=== PATIENT | female | born 1995 | race Caucasian/White ===

== ENCOUNTER 2017-10-06 00:21 | Emergency (ER) | payer OTHER, SELFPAY | END 2017-10-06 02:13 | disposition home or self-care (01) | PROVIDERS: Emergency Provider Emergency Medicine; Family Provider Family Medicine; Visit Provider Emergency Medicine | DX: R30.0 Dysuria (principal); Z88.0 Allergy status to penicillin; N89.8 Other specified noninflammatory disorders of vagina | CPT/HCPCS: 81001; 81025; 87086; 87210; 87220; 99283 ==

== ENCOUNTER → 2018-04-24 20:39 | Outpatient (REF) | payer OTHER, SELFPAY | LOC: LAB 20:39 | PROVIDERS: Visit Provider Nurse Practitioner Family | DX: J02.9 Acute pharyngitis, unspecified (principal) ==

== ENCOUNTER 2020-10-13 11:39 | Emergency (ER) | payer BC, SELFPAY ==
[2020-10-13 13:03] VITALS: BP 148/98; PULSE 111; RESP 16; TEMP 36.6; O2SAT 97; BMI 37.2
--- NOTE | 2020-10-13 13:07 | HMH.EDUTC ---
[facility] [place] Disposition Clinical Impression: Exposure to COVID-19 virus Disposition: Home, Self-Care Condition on Discharge: Good Instructions: DI for COVID-19 (Suspected or Confirmed ), Coronavirus Disease 2019, COVID-19: Testing and Tracing, Preventing the Spread of Coronavirus Discharge Instructions Additional Instructions: *Monitor Temp, Over the counter Motrin or Tylenol as directed/as needed Tylenol every 4 hours and Motrin every 6 hours (as long as your family doctor has told you that you can take it) for fever or pain. and straight to ER if unable to lower temp less than 101.0 after medication given *Warm salt water gargles may help to soothe the throat *Throat Lozenges *Warm fluids like tea with honey may help to soothe the throat *Sleep elevated *Humidifier/Vaporizer Follow up IMMEDIATELY for new or worsening symptoms or no Noticeable improvement over the next 48-72 hours. 911 for difficulty breathing or swallowing You were tested for today for COVID19 your test result should be back in the next 24-48 hours, you may call to the [facility] to see if your test results are back in the next 48 hours [phone] [facility] hours are 9am-9pm You was given a handout with instructions for Self Quarantine and Self isolation for while you wait on test results and what to do if they are positive If you are positive the Health Dept will be contacting you also Referrals: Leola Guerrero [Primary Care Provider] - As needed Forms: Work/School Release Time of Disposition: 13:08 Medical Decision Making - Phil Inquiry Pt receiving controlled substance: No Phil was queried for this patient: No Vital Signs: 10/13/20 13:03 Temperature 98 F Temperature Source Oral Pulse Rate [Right] 111 H Respiratory Rate 16 Blood Pressure [Right Arm] 148/98 H Blood Pressure Mean [Right Arm] 114 Blood Pressure Source [Right Arm] Automatic Cuff Blood Pressure Position [Right Arm] Sitting 02 Sat by Pulse Oximetry 97 Oxygen Delivery Method Room Air Orders (Tests/Meds): ORDERS Category Date Time Status Covid-19 Nasal PCR ([facility]) Routine Lab 10/13/20 12:04 Ordered [facility] [place] HPI - General Stated complaint: covid exposure Time Seen by Provider: 10/13/20 13:07 Mode of Arrival: Ambulatory Source of Information: Patient Limitations: No Limitations Description of Symptoms (Recalled from Triage Doc. by RN): pt wants covid test. Denies any symptoms HEENT Symptoms (Recalled from RN notes): No Resp Symptoms (Recalled from RN notes): No Skin Symptoms (Recalled from RN notes): No MS Symptoms (Recalled from RN notes): No Functional Status (Recalled from RN notes): na - History of Present Illness Provider Complaint: Patient state that she has recenty been around someone that just tested positive for COVID State that she has been having headache and body aches but no other symptoms State that she hasnt had a fever that she is aware of - Related Data Home Medications Medication Instructions Recorded Confirmed bupropion HCl 150 mg tablet,12 hr 150 mg PO DAILY 12/09/19 12/09/19 sustained-release escitalopram oxalate 20 mg tablet mg PO 12/09/19 12/09/19 levothyroxine 50 mcg tablet PO 12/09/19 12/09/19 norgestimate 0.25 mg-ethinyl tab PO 12/09/19 12/09/19 estradiol 35 mcg tablet valacyclovir 500 mg tablet PO 12/09/19 12/09/19 Allergies Allergy/AdvReac Type Severity Reaction Status Date / Time Penicillins [PENICILLINS] Allergy Unknown Verified 12/09/19 11:33 sulfamethoxazole AdvReac diarrhea Verified 12/09/19 11:33 [From Bactrim] trimethoprim [From Bactrim] AdvReac diarrhea Verified 12/09/19 11:33 LACTOSE INTOLERANCE Allergy Unknown Uncoded 09/30/17 14:57 MUSHROOM Allergy Unknown NA-NAUSEA/V Uncoded 09/30/17 14:57 OMITING - Worker's Comp Is this a Worker's Comp case?: No [facility] History - Hepatitis A Screen Drug use history?: No High risk sexual behaviors?: No History of sexually transmitted infection?: No Currently
[2020-10-13 13:12] VITALS: BP 148/97; PULSE 98; RESP 16; TEMP 36.6; O2SAT 100
== END 2020-10-13 13:13 | disposition home or self-care (01) ==
PROVIDERS: Emergency Provider Nurse Practitioner; PCP Family Medicine
DX: U07.1 COVID-19 (principal); Z88.0 Allergy status to penicillin; Z88.2 Allergy status to sulfonamides
CPT/HCPCS: 99202; G0463; U0003

== ENCOUNTER 2021-03-23 12:16 | Emergency (ER) | payer BC, SELFPAY ==
[2021-03-23 12:40] VITALS: BP 134/90; PULSE 94; RESP 19; TEMP 36.9; O2SAT 98; BMI 35.9
[2021-03-23 12:44] VITALS: BP 134/90; PULSE 94; RESP 19; TEMP 36.9; O2SAT 98
--- NOTE | 2021-03-23 12:57 | HMH.EDUTC ---
[facility] [place] Disposition Clinical Impression: Gastroenteritis Disposition: Home, Self-Care Condition on Discharge: Good Instructions: DI for Viral Gastroenteritis -- Adult Additional Instructions: Clear liquids, bland diet. Prescriptions: Ondansetron [Ondansetron Odt 8mg Tab] 8 mg PO Q8HP PRN 30 Days #30 tab PRN Reason: Nausea Transmission Status: [facility] Referrals: Leola Guerrero [Primary Care Provider] - Forms: Work/School Release Time of Disposition: 13:02 Medical Decision Making - Phil Inquiry Pt receiving controlled substance: No Vital Signs: 03/23/21 12:40 03/23/21 12:44 Temperature 98.5 F 98.5 F Temperature Source Oral Pulse Rate 94 H Pulse Rate [Left] 94 H Respiratory Rate 19 19 Blood Pressure 134/90 Blood Pressure [Right Arm] 134/90 Blood Pressure Mean [Right Arm] 104 02 Sat by Pulse Oximetry 98 [facility] [place] HPI - General Stated complaint: vomiting, diarrhea Time Seen by Provider: 03/23/21 13:00 Mode of Arrival: Ambulatory Source of Information: Patient Limitations: No Limitations Description of Symptoms (Recalled from Triage Doc. by RN): Pt states that she has had diarrhea, vomiting and a headache for 2 days. Pt reports that the stomach virus has been going around her work. HEENT Symptoms (Recalled from RN notes): No Resp Symptoms (Recalled from RN notes): No Skin Symptoms (Recalled from RN notes): No MS Symptoms (Recalled from RN notes): No Functional Status (Recalled from RN notes): wnl - History of Present Illness Provider Complaint: Vomiting and diarrhea X 2 days. No fever. Onset (ago): day(s) (2) Location: abdomen Relieving factors: none Exacerbating factors: none Associated symptoms: denies other symptoms Treatments prior to arrival: none - Related Data Home Medications Medication Instructions Recorded Confirmed bupropion HCl 150 mg tablet,12 hr 150 mg PO DAILY 12/09/19 12/09/19 sustained-release escitalopram oxalate 20 mg tablet mg PO 12/09/19 12/09/19 levothyroxine 50 mcg tablet PO 12/09/19 12/09/19 norgestimate 0.25 mg-ethinyl tab PO 12/09/19 12/09/19 estradiol 35 mcg tablet valacyclovir 500 mg tablet PO 12/09/19 12/09/19 Previous Rx's Medication Instructions Recorded Ondansetron [Ondansetron Odt 8mg 8 mg PO Q8HP PRN 30 Days #30 tab 03/23/21 Tab] Allergies Allergy/AdvReac Type Severity Reaction Status Date / Time Penicillins [PENICILLINS] Allergy Unknown Verified 03/23/21 12:29 sulfamethoxazole AdvReac diarrhea Verified 03/23/21 12:29 [From Bactrim] trimethoprim [From Bactrim] AdvReac diarrhea Verified 03/23/21 12:29 LACTOSE INTOLERANCE Allergy Unknown Uncoded 09/30/17 14:57 MUSHROOM Allergy Unknown NA-NAUSEA/V Uncoded 09/30/17 14:57 OMITING - Worker's Comp Is this a Worker's Comp case?: No [facility] History - Hepatitis A Screen Drug use history?: No High risk sexual behaviors?: No History of sexually transmitted infection?: No Currently employed?: No Childcare worker?: No Do you have indoor plumbing?: Yes Do you have electricity?: Yes Attestation statement:: This patient has been screened for Hepatitis A risk factors. I have reviewed the patient's past medical history: Yes Laterality Cases: Bilateral: Myringotomy (Ear Tubes) Amputation: No Fractures: No Comment: wisdom teeth removed. - Social History Smoking Status: Never smoker Alcohol Intake: never Alcohol Intake Frequency:: holidays/special occasions only Substance Use Type: denies use Occupational Status: employed Family Hx:: Non-contributory, Diabetes, Coronary Artery Disease ROS Obtained: Yes All systems reviewed & no additional complaints - Gastrointestinal Gastrointestingal: Reports: diarrhea, vomiting Physical Exam - General General appearance: alert, in no apparent distress - Head Head exam: normocephalic - Eye Eye exam: Present: PERRL - ENT ENT exam: Present: normal oropharynx - Respiratory
== END 2021-03-23 13:09 | disposition home or self-care (01) ==
PROVIDERS: Emergency Provider Physician Assistant; PCP Family Medicine
DX: K52.9 Noninfective gastroenteritis and colitis, unspecified (principal)
CPT/HCPCS: 99202; G0463

== ENCOUNTER 2021-05-04 10:31 | Emergency (ER) | payer BC, SELFPAY ==
[2021-05-04 11:07] VITALS: BP 135/92; PULSE 85; RESP 16; TEMP 36.8; O2SAT 100; BMI 36.3
--- NOTE | 2021-05-04 11:41 | HMH.EDUTC ---
[facility] [place] Disposition Clinical Impression: Otitis media Qualifiers: Otitis media type: unspecified Laterality: right Qualified Code(s): H66.91 - Otitis media, unspecified, right ear Disposition: Home, Self-Care Condition on Discharge: Good Instructions: Middle Ear Infection, Azithromycin Additional Instructions: Take medication as prescribed Gargle warm salt water this may help with throat pain Over the counter Motrin and/or Tylenol as directed on package for fever or pain Follow up with your Family Doctor if no improvement or any worsening of symptoms Prescriptions: Azithromycin [Z-Troy 250mg Tab] 250 mg PO DIRECTED #6 tab Transmission Status: Pending to [facility] Referrals: Leola Guerrero [Primary Care Provider] - Medical Decision Making - Phil Inquiry Pt receiving controlled substance: No Phil was queried for this patient: No Vital Signs: 05/04/21 11:07 Temperature 98.3 F Temperature Source Oral Pulse Rate [Right] 85 Respiratory Rate 16 Blood Pressure [Right Arm] 135/92 H Blood Pressure Mean [Right Arm] 106 Blood Pressure Source [Right Arm] Automatic Cuff Blood Pressure Position [Right Arm] Sitting 02 Sat by Pulse Oximetry 100 Oxygen Delivery Method Room Air Medical Decision Narrative: Patient states that she is allergic to PCN and not sure if she has taken Cephalexin or Cefdinir in the past but has taken azithromycin without complications or reactions [facility] [place] HPI - General Stated complaint: rt ear pain, sore throat Time Seen by Provider: 05/04/21 11:42 Mode of Arrival: Ambulatory Source of Information: Patient Limitations: No Limitations Description of Symptoms (Recalled from Triage Doc. by RN): pt c/o earache on the right side with a sore throat. Advises she had been in [place] and been swimming alot [facility] Symptoms (Recalled from RN notes): Yes (earache, sore throat) Resp Symptoms (Recalled from RN notes): No Skin Symptoms (Recalled from RN notes): No MS Symptoms (Recalled from RN notes): No Functional Status (Recalled from RN notes): na - History of Present Illness Provider Complaint: Patient states that she has been having pain in her right ear States that pain in ear shoots down into her throat and has pain in both her throat and ear when she swallows States that she has been swimming and recently on vacation in [place] - Related Data Home Medications Medication Instructions Recorded Confirmed bupropion HCl 150 mg tablet,12 hr 150 mg PO DAILY 12/09/19 12/09/19 sustained-release escitalopram oxalate 20 mg tablet mg PO 12/09/19 12/09/19 levothyroxine 50 mcg tablet PO 12/09/19 12/09/19 norgestimate 0.25 mg-ethinyl tab PO 12/09/19 12/09/19 estradiol 35 mcg tablet valacyclovir 500 mg tablet PO 12/09/19 12/09/19 Previous Rx's Medication Instructions Recorded Ondansetron [Ondansetron Odt 8mg 8 mg PO Q8HP PRN 30 Days #30 tab 03/23/21 Tab] Azithromycin [Z-Troy 250mg Tab] 250 mg PO DIRECTED #6 tab 05/04/21 Allergies Allergy/AdvReac Type Severity Reaction Status Date / Time Penicillins [PENICILLINS] Allergy Unknown Verified 03/23/21 12:29 sulfamethoxazole AdvReac diarrhea Verified 03/23/21 12:29 [From Bactrim] trimethoprim [From Bactrim] AdvReac diarrhea Verified 03/23/21 12:29 LACTOSE INTOLERANCE Allergy Unknown Uncoded 09/30/17 14:57 MUSHROOM Allergy Unknown NA-NAUSEA/V Uncoded 09/30/17 14:57 OMITING - Worker's Comp Is this a Worker's Comp case?: No [facility] History - Hepatitis A Screen Drug use history?: No High risk sexual behaviors?: No History of sexually transmitted infection?: No Currently employed?: No Childcare worker?: No Do you have indoor plumbing?: Yes Do you have electricity?: Yes Attestation statement:: This patient has been screened for Hepatitis A risk factors. I have reviewed the patient's past medical history: Yes Laterality Cases: Bilateral: Myringotomy (Ear Tubes) Amputation: No Fractures: No Co
[2021-05-04 11:57] VITALS: BP 135/92; PULSE 85; RESP 19; TEMP 36.8; O2SAT 100
== END 2021-05-04 11:57 | disposition home or self-care (01) ==
PROVIDERS: Emergency Provider Nurse Practitioner; PCP Family Medicine
DX: H66.91 Otitis media, unspecified, right ear (principal); Z88.0 Allergy status to penicillin; Z88.2 Allergy status to sulfonamides
CPT/HCPCS: 99202; G0463

== ENCOUNTER 2021-07-15 14:24 | Emergency (ER) | payer OTHER, BC, SELFPAY ==
[2021-07-15 16:02] VITALS: BP 0/0; PULSE 0; RESP 0; TEMP -17.7; TEMP 0
== END 2021-07-15 16:03 | disposition left against medical advice (07) ==
LOC: UTC 14:29
PROVIDERS: Emergency Provider Nurse Practitioner; PCP Family Medicine
DX: Z53.21 Procedure and treatment not carried out due to patient leaving prior to being seen by health care provider (principal)

== ENCOUNTER → 2021-08-06 12:35 | Outpatient (CLI) | payer OTHER, BC, SELFPAY | PROVIDERS: Visit Provider Obstetrics & Gynecology | DX: N97.9 Female infertility, unspecified (principal) | CPT/HCPCS: 36415; 84144; 84443 ==

== ENCOUNTER → 2021-08-28 08:11 | Outpatient (CLI) | payer OTHER, BC, SELFPAY ==
[2021-08-28 09:03] LABS: Basophils # 0.1 K/mm3 (0-0.2); Basophils % 1.4 % (0.1-2.0); Eosinophils # 0.2 K/mm3 (0.0-0.4); Eosinophils % 2.9 % (0.1-12.0); Hematocrit 41.6 % (37.0-47.0); Hemoglobin 14.6 g/dL (12.2-16.2); Lymphocytes # 3.9 K/mm3 (0.7-4.5); Lymphocytes % 50.9 % (10-50); Mean Corpuscular Hemoglobin 31.1 pg (27.0-31.2); Mean Corpuscular Volume 88.7 fl (81-99); Mean Platelet Volume 7.7 fl (7.4-10.4); Monocytes # 0.3 K/mm3 (0.1-1.0); Monocytes % 4.1 % (1.7-9.3); Neutrophils # 3.1 K/mm3 (1.8-7.8); Neutrophils % 40.6 % (37.0-80.0); Platelet Count 409 K/mm3 (142-424); Red Blood Count 4.69 M/mm3 (4.20-5.40); Red Cell Distribution Width 13.3 % (11.5-17.5); White Blood Count 7.7 K/mm3 (4.8-10.8)
[2021-08-28 09:11] LABS: MANUAL DIFFERENTIAL MANUAL DIFFERENTIAL (MANUAL DIFF)
[2021-08-28 09:25] LABS: Alanine Aminotransferase 54 U/L (12-78); Albumin Level 4.5 g/dl (3.5-5.0); Albumin/Globulin Ratio 1.7 (1.1-1.8); Alkaline Phosphatase 67 U/L (38-126); Anion Gap 10.9 mEq/L (5-15); Aspartate Amino Transferase 35 U/L (14-36); Bilirubin,Total 0.5 mg/dl (0.2-1.3); Blood Urea Nitrogen 8 mg/dl (7-17); Calcium 9.5 mg/dl (8.4-10.2); Carbon Dioxide 26 mmol/L (22.0-30.0); Chloride 107 mmol/L (98-107); Estimated Glomerular Filt Rate 121 ml/min (>60); GFR (African American) 146 ML/MIN (>60); Globulin 2.7 g/dL (1.3-3.2); Glucose 101 mg/dl (74-100); Potassium 3.9 mmoL/L (3.5-5.1); Sodium 140 mmol/L (136-145); Total Protein,Serum 7.2 g/dl (6.3-8.2)
[2021-08-28 09:30] LABS: HCG Qualitative, Serum Negative (Negative)
[2021-08-28 10:49] LABS: Amphetamine/Metha Screen,Urine Negative ng/ml (<1000)
[2021-08-28 10:50] LABS: Cannabinoid Screen,Urine Negative ng/ml (<50)
[2021-08-28 10:51] LABS: Barbiturates Screen,Urine Negative ng/ml (<200); Benzodiazepines Screen,Urine Negative ng/ml (<200)
[2021-08-28 10:52] LABS: Cocaine Screen,Urine Negative ng/ml (<300); Methadone Screen,Urine Negative ng/ml (<300)
[2021-08-28 10:53] LABS: Opiate Screen,Urine Negative ng/ml (<300)
[2021-08-28 10:54] LABS: Phencyclidine Screen,Urine Negative ng/ml (<25)
[2021-08-28 12:55] LABS: Eosinophils % 2 % (0-3); Lymphocytes % 52 % (10-50); Monocytes % 5 % (2-9); Neutrophils % 39 % (42-76); Platelet Estimate Normal; Total Cells Counted 100
== END ==
PROVIDERS: Visit Provider Obstetrics & Gynecology
DX: Z01.812 Encounter for preprocedural laboratory examination (principal); Z11.52 Encounter for screening for COVID-19; N94.6 Dysmenorrhea, unspecified
CPT/HCPCS: 36415; 80053; 80305; 84703; 85007; 85025; C9803; U0003; U0005

== ENCOUNTER 2021-08-30 07:08 | Day surgery (SDC) | payer OTHER, BC, SELFPAY ==
[2021-08-27 10:50] VITALS: BMI 37.2
[2021-08-30] VITALS (11 sets, daily range): BP systolic 134–168; BP diastolic 78–97; PULSE 95–113; RESP 16–20; TEMP 36.2–36.8; O2SAT 92–98
--- NOTE | 2021-08-30 07:51 | P.PN_ITS ---
[facility] Anesthesia Checklist - Patient Identification Patient Identification: Arm Band - Structural Data Admitted From: Home Planned Operative Procedure/s: Dx lap. Consent for Planned Operative Procedure(s) Verified: Yes - NPO Status Verified Time NPO: 00:00 - Additional verifications Anesthesia Reactions: Yes (n/v stated extreme ) Hx Blood Transfusions: No Blood Transfusion Reaction: No - Airway Assessment C-Spine Mobility Assessed: Yes TMJ Mobility Assessed: Yes Dentition: Good Dentition (Braces) - Neurological Assessment Level of Consciousness: Awake Hx Seizures: No Numbness or tingling in extremities: No - Anesthesia Plan Anesthesia Risk discussed: Yes Anesthesia Plan: Verified ASA Class: II Anesthesia Type: General [facility] History I have reviewed the patient's past medical history: Yes Medical History: Denies:: Cancer, Diabetes Mellitus Type 1, Diabetes Mellitus Type 2, Internal Pacemaker, MRSA, Seizures *Have you ever received a pneumonia vaccine?: No *Have you received a flu vaccine this season?: Yes Other Medical History: Denies: Blood Transfusion Reaction Anesthesia experience/problems:: PONV Laterality Cases: Bilateral: Myringotomy (Ear Tubes) Other Surgeries: Yes: Cholecystectomy. No: Pacemaker Amputation: No Fractures: No - *Social History Last grade of school completed: Advanced degree Smoking Status: Never smoker Alcohol Intake: former Alcohol Intake Frequency:: holidays/special occasions only Substance Use Type: denies use *Occupational Status:: unemployed Housing: house Household Members: spouse, family *Travel in the last 8 weeks: None Family Hx:: Stroke
--- NOTE | 2021-08-30 10:32 | HMH.ANESI ---
[facility] Anesthesia Record Part I Intake, IV Amount: 1,000 Estimated blood loss (mL): 10 Urine output (mL): 0 Blood Pressure: 138/97 SaO2: 92 Pulse Rate: 101 Respiratory Rate: 16 Temperature: 97.2 F Patient is:: Drowsy Stable to PACU at:: 10:27
--- NOTE | 2021-08-30 11:07 | HMH.OPNOTE ---
Date of procedure: 08/30/21 Pre-op Diagnosis:: 1. Infertility 2. Severe dysmenorrhea Post-op Diagnosis:: 1. Infertility 2. Severe dysmenorrhea 3. Endometriosis Procedure performed:: Diagnostic laparoscopy chromotubation of fallopian tubes Surgeon:: Nathalie Celaya MD Wood Fence Installer(s):: none [employer]PERVIS[employer] DEPARTMENT:: Other Anesthesia: GETA Estimated blood loss (mL): 5 Operative findings:: grossly normal uterus and left ovary grossly normal appearing fallopian tubes powder burn endometriosis lesions right ovary and over bladder no pelvic adhesions patent bilateral fallopian tubes Operative note:: The patient was taken to the operating room and general anesthesia was administered. She was prepped/draped in lithotomy position. A uterine manipulator was placed without difficulty. Gloves were changed and attention was turned to the abdomen. A 5mm skin incision was made in the umbilical fold and the verees needle was inserted through the peritoneum and into the abdominal cavity in standard fashion. The abdomen was insufflated with CO2 gas. A 5mm non-bladed trocar was inserted directly into the abdominal cavity and appropriate placement was confirmed with the laparoscope. No intra-abdominal injuries occurred during entry into the abdominal cavity, as confirmed visually with the laparoscope. The patient was placed in trendelenburg and a 5mm skin incision was made 2cm above the pubic symphysis. A 5mm non-bladed trocar was inserted under direct visualization, without complication. The uterus was elevated out of the pelvis in order to better visualize the anatomy. A survey of the pelvis and abdomen revealed the findings noted above. A few powder burn lesions consistent with endometriosis were identified on the right ovary and overlying the blader. Fulgaration of these lesions was deferred because of their location. The rest of the pelvic anatomy appeared normal, and no adhesions were observed. A dilute solution of methylene blue was injected through the uterine manipulator. The dye was observed quickly from the left fallopian tube, but did take considerably longer to be expelled from the right fallopian tube. The exterior of the tubes both appeared normal. The abdomen was then evacuated of gas and all trocars removed. The skin incisions were closed with 4-0 monocryl. The uterine manipulator was removed. All sponge/lap/needle/instrument counts correct. Total EBL: 5 cc. The patient was taken out of lithotomy position, extubated and taken to the PACU in stable condition. Condition: stable Disposition: PACU Specimens:: none Complications:: none
[2021-08-31 08:07] VITALS: BP 145/78; PULSE 100; TEMP 36.2
--- NOTE | 2021-08-31 08:07 | HMH.ANESII ---
[facility] Anesthesia Record Part II Discharge Time: 10:57 Destination: [facility] PACU nurse assessment reviewed?: Yes Patient Condition:: Good Anesthesia Complications:: None Swallowing reflex intact?: Yes Cyanosis?: No Blood Pressure: 145/78 Pulse Rate: 100 Temperature: 97.2 F Mental Status: Alert & Oriented Pain level:: 2 Nausea and/or vomitting:: None Intake, IV Amount: 1,500
== END 2021-08-30 12:01 | disposition home or self-care (01) ==
LOC: OR 07:10
PROVIDERS: PCP Family Medicine; Visit Provider Obstetrics & Gynecology
PROC: (CPT 49320; principal; 2021-08-30 08:45)
DX: Z30.2 Encounter for sterilization (principal); N94.6 Dysmenorrhea, unspecified; N80.1 Endometriosis of ovary; Z90.49 Acquired absence of other specified parts of digestive tract; Z82.3 Family history of stroke; Z88.0 Allergy status to penicillin; Z88.1 Allergy status to other antibiotic agents; Z79.899 Other long term (current) drug therapy
CPT/HCPCS: 49320; 58350; 96374; J2405; J2710

== ENCOUNTER 2021-08-30 18:27 | Emergency (ER) | payer OTHER, BC, SELFPAY ==
[2021-08-30 18:29] VITALS: BP 128/92; PULSE 118; RESP 20; TEMP 36.9; O2SAT 97; BMI 37.2
--- NOTE | 2021-08-30 18:42 | HMH.EDGENADL ---
ED Disposition Condition on Discharge: Fair Time of Disposition: 20:06 - Critical Care Critical Care Time: No <Graciela Avila - Last Filed: 08/30/21 20:04> <Mark Chao - Last Filed: 08/30/21 22:52> Clinical Impression: Acute abdominal pain, Dysuria Disposition: Home, Self-Care Instructions: DI for Acute Abdominal Pain Additional Instructions: call dr celaya office in am for follow up Referrals: Leola Guerrero [Primary Care Provider] - Nathalie Celaya MD [Staff Physician] - Attestation: On 08/30/21, the high probability of a clinically significant, sudden or life threatening deterioration of the following system(s) required my full and direct attention, intervention and personal management. The time I documented below is in addition to time spent performing reported procedures but includes the following listed in this critical care notation. Medical Decision Making - Medical Records Medical records reviewed: Yes: I reviewed the patient's medical records. - Phil Inquiry Pt receiving controlled substance: No - Lab Data Result diagrams: 08/30/21 19:11 08/30/21 19:11 <Graciela Avila - Last Filed: 08/30/21 20:04> - Lab Data Lab results reviewed: Yes: I reviewed the patient's lab results. Result diagrams: 08/30/21 19:11 08/30/21 19:11 - CT Data CT Scan: Abdomen, Pelvis Time Received: 22:[address] Reviewed: Yes: I have viewed the radiologist's interpretation Preliminary Findings: Abnormal (see report ) - Physician Consults Physician Consulted: more Reason -: Pt condition <Mark Chao - Last Filed: 08/30/21 22:52> Vital Signs: 08/30/21 18:29 Temperature 98.5 F Temperature Source Oral Pulse Rate [Right Radial] 118 H Respiratory Rate 20 Blood Pressure [Right Arm] 128/92 H Blood Pressure Mean [Right Arm] 104 Blood Pressure Source [Right Arm] Automatic Cuff Blood Pressure Position [Right Arm] Sitting 02 Sat by Pulse Oximetry 97 Oxygen Delivery Method Room Air - Lab Data Lab Results 08/30/21 19:11: WBC 9.6, RBC 4.68, Hgb 14.5, Hct 41.8, MCV 89.3, MCH 31.0, MCHC 34.7, RDW 13.3, Plt Count 429 H, MPV 7.6, Neut % (Auto) 87.0 H, Lymph % (Auto) 10.8, [place] % (Auto) 1.1 L, Eos % (Auto) 0.9, Baso % (Auto) 0.2, Neut # (Auto) 8.4 H, Lymph # (Auto) 1.0, [place] # (Auto) 0.1, Eos # (Auto) 0.1, Baso # (Auto) 0.0, Total Counted 100, Neutrophils % (Manual) 85 H, Lymphocytes % (Manual) 14, Monocytes % (Manual) 1 L, Platelet Estimate Normal, RBC Morphology Normal 08/30/21 19:11: Sodium 139, Potassium 4.2, Chloride 103, Carbon Dioxide 24, Anion Gap 16.2 H, BUN 13 D, Creatinine 0.90 D, Estimated Creat Clear 142, Estimated GFR 76, Est GFR ( Amer) 92 D, Glucose 130 H, Calcium 9.7, Total Bilirubin 0.3, AST 38 H, ALT 54, Alkaline Phosphatase 55, Total Protein 8.0, Albumin 4.8, Globulin 3.2, Albumin/Globulin Ratio 1.5 08/30/21 20:05: Urine HCG, Qual Negative 08/30/21 20:08: Urine Color Yellow, Urine Appearance Clear, Urine pH 5.5, Ur Specific [place] 1.020, Urine Protein Trace, Urine Glucose (UA) Negative, Urine Ketones Negative, Urine Blood 3+, Urine Nitrate Negative, Urine Bilirubin Negative, Urine Urobilinogen 0.2, Ur Leukocyte Esterase Trace, Urine RBC 50-100, Urine WBC 5-10, Ur Squamous Epith Cells 3-5, Urine Bacteria Trace Orders (Tests/Meds): ED MEDICATIONS Generic Name Dose Route Start Last Admin Trade Name Freq PRN Reason Stop Dose Admin Sodium Chloride 1,000 mls @ 999 mls/hr 08/30/21 20:00 08/30/21 20:10 Sod Chlor 0.9% 1000ml Bag IV 08/30/21 21:00 999 mls/hr .Q1H1M BRET Administration Discontinued Medications Generic Name Dose Route Start Last Admin Trade Name Freq PRN Reason Stop Dose Admin Iopamidol 70 ml 08/30/21 21:34 08/30/21 21:34 Iopamidol-370 (76%);100ml Bottle IV 08/30/21 21:35 70 ml ONCE ONE Administration Lidocaine HCl 10 ml 08/30/21 18:41 08/30/21 18:57 Lidocaine 2% Urojet 10ml TOPICAL 08/30/21 18:42 10 ml ONCE ONE Administration
[2021-08-30 19:23] LABS: Basophils % 0.2 % (0.1-2.0); Eosinophils # 0.1 K/mm3 (0.0-0.4); Eosinophils % 0.9 % (0.1-12.0); Hematocrit 41.8 % (37.0-47.0); Hemoglobin 14.5 g/dL (12.2-16.2); Lymphocytes % 10.8 % (10-50); Mean Corpuscular HGB Conc 34.7 g/dL (31.8-35.4); Mean Corpuscular Volume 89.3 fl (81-99); Mean Platelet Volume 7.6 fl (7.4-10.4); Monocytes # 0.1 K/mm3 (0.1-1.0); Monocytes % 1.1 % (1.7-9.3); Neutrophils # 8.4 K/mm3 (1.8-7.8); Platelet Count 429 K/mm3 (142-424); Red Blood Count 4.68 M/mm3 (4.20-5.40); Red Cell Distribution Width 13.3 % (11.5-17.5); White Blood Count 9.6 K/mm3 (4.8-10.8)
[2021-08-30 19:27] LABS: MANUAL DIFFERENTIAL MANUAL DIFFERENTIAL (MANUAL DIFF)
[2021-08-30 19:40] LABS: Chloride 103 mmol/L (98-107)
[2021-08-30 19:41] LABS: Potassium 4.2 mmoL/L (3.5-5.1); Sodium 139 mmol/L (136-145)
[2021-08-30 19:43] LABS: Alanine Aminotransferase 54 U/L (12-78); Aspartate Amino Transferase 38 U/L (14-36); Blood Urea Nitrogen 13 mg/dl (7-17); Creatinine Clearance Estimated 142 mL/min (50-200); Estimated Glomerular Filt Rate 76 ml/min (>60); GFR (African American) 92 ML/MIN (>60); Lymphocytes % 14 % (10-50); Monocytes % 1 % (2-9); Neutrophils % 85 % (42-76); Platelet Estimate Normal; RBC Morphology Normal; Total Cells Counted 100
[2021-08-30 19:44] LABS: Albumin Level 4.8 g/dl (3.5-5.0); Albumin/Globulin Ratio 1.5 (1.1-1.8); Alkaline Phosphatase 55 U/L (38-126); Anion Gap 16.2 mEq/L (5-15); Bilirubin,Total 0.3 mg/dl (0.2-1.3); Calcium 9.7 mg/dl (8.4-10.2); Carbon Dioxide 24 mmol/L (22.0-30.0); Globulin 3.2 g/dL (1.3-3.2); Glucose 130 mg/dl (74-100)
[2021-08-30 20:13] LABS: Microscopic, Urine URINE MICROSCOPIC (MICROSCOPIC)
[2021-08-30 20:16] LABS: Appearance,Urine CLEAR (Clear); Bilirubin,Urine Negative (Negative); Blood, Urine 3+ (Negative); Color,Urine YELLOW (Yellow); Glucose,Urine (UA) Negative (Negative); Ketones,Urine Negative (Negative); Leukocyte Esterase,Urine TRACE (Negative); Nitrate,Urine Negative (Negative); PH,Urine 5.5 (5.0-8.5); Protein,Urine TRACE (Negative); Urobilinogen,Urine 0.2 EU/dl (0.2)
[2021-08-30 20:21] LABS: Bacteria,Urine Trace /lpf; RBC,Urine 50-100 #/hpf (0-3)
--- NOTE | 2021-08-30 21:00 | CT_ITS ---
PROCEDURE INFORMATION: Exam: CT Abdomen And Pelvis With Contrast Exam date and time: 08/30/2021 9:00 PM Age: 26 years old Clinical indication: Abdominal pain; Prior surgery; Surgery date: Post-operative (0-2 days); Additional info: Dysuria, supra pubic pain, chavez d/c today TECHNIQUE: Imaging protocol: Computed tomography of the abdomen and pelvis with contrast. Radiation optimization: All CT scans at this facility use at least one of these dose optimization techniques: automated exposure control; mA and/or kV adjustment per patient size (includes targeted exams where dose is matched to clinical indication); or iterative reconstruction. Contrast material: ISOVUE; Contrast volume: 70 ml; Contrast route: IV; COMPARISON: No relevant prior studies available. FINDINGS: Lungs: No mass/infiltrate at either lung base. No pleural effusion. Minimal linear scarring left lung base. There are small calcified granulomas noted within the lower lobes. Liver: The liver is normal in size and attenuation. No intrahepatic biliary dilitation. Gallbladder and bile ducts: The gallbladder is surgically absent. No evidence of extrahepatic biliary dilatation. Pancreas: Normal. No ductal dilation. Spleen: Normal. No splenomegaly. Granulomatous calcifications identified. Adrenal glands: Normal. No mass. Kidneys and ureters: Normal. No hydronephrosis. Stomach and bowel: Unremarkable. No obstruction. No mucosal thickening. Small bowel mesentery is normal. Appendix: Unremarkable. Intraperitoneal space: There is diffuse edema of portions of the mid and lower small bowel mesentery as well as the mid and inferior aspect of the greater omentum. Edema extends into the pericolic gutters along their inferior aspects. Attenuation of this edema is less than acute blood. There is a small amount of free air present within the substance of the right rectus muscle. There are areas of free air noted within the inferior aspect of the left pericolic gutter and adjacent to the left adnexa. There is also a small amount of free air adjacent to the medial aspect of the right external oblique muscle at the level of the umbilicus. There is no evidence of free fluid within the cul-de-sac. Above the level of the umbilicus there is no evidence of infiltration of either mesentery. Vasculature: Unremarkable. No abdominal aortic aneurysm. Lymph nodes: Unremarkable. No enlarged lymph nodes. Urinary bladder: Unremarkable as visualized. Reproductive: Unremarkable as visualized. Bones/joints: Unremarkable. No acute fracture. Soft tissues: There is edema present within subcutaneous fat of the lower anterior abdominal wall. There is a small amount of air noted within subcutaneous soft tissues adjacent to or contiguous with what appears to represent an incision line within subcutaneous fat. IMPRESSION: 1. There is edema present within the lower greater omentum, the lower mesentery, and within both pericolic gutters. This likely represents postsurgical change although its etiology is not clear based upon this examination and provided history. 2. There is some residual free air identified, as described. 3. The bladder appears intact.
[2021-08-30 21:19] LABS: Urine Pregnancy, HCG Qual. Negative (Negative)
--- NOTE | 2021-08-30 22:28 | PC.NURSE ---
kayla on phone with dr aguero @ this time
[2021-08-30 23:49] VITALS: BP 110/78; PULSE 90; RESP 17; TEMP 36.7; O2SAT 96
== END 2021-08-30 23:56 | disposition home or self-care (01) ==
PROVIDERS: Emergency Medicine; Emergency Provider Emergency Medicine; PCP Family Medicine
DX: N94.6 Dysmenorrhea, unspecified (principal)
CPT/HCPCS: 74177; 80053; 81001; 81025; 85007; 85025; 87086; 96365; 96375; 96376; 99283; J2405; Q9967

== ENCOUNTER → 2021-10-16 12:32 | Outpatient (CLI) | payer OTHER, BC, SELFPAY ==
[2021-10-17 09:13] LABS: Progesterone 10.3 ng/mL (.)
== END ==
PROVIDERS: Visit Provider Obstetrics & Gynecology
DX: N97.9 Female infertility, unspecified (principal)
CPT/HCPCS: 36415; 84144

== ENCOUNTER → 2021-12-31 12:57 | Outpatient (CLI) | payer OTHER, BC, SELFPAY ==
[2021-12-31 15:07] LABS: HCG,Quantitative 251 mIU/ml (0-5.42)
== END ==
PROVIDERS: PCP Family Medicine; Visit Provider Obstetrics & Gynecology
DX: Z32.01 Encounter for pregnancy test, result positive (principal)
CPT/HCPCS: 36415; 84702

== ENCOUNTER → 2022-01-02 12:36 | Outpatient (CLI) | payer OTHER, BC, SELFPAY ==
[2022-01-02 13:55] LABS: HCG,Quantitative 525 mIU/ml (0-5.42)
== END ==
PROVIDERS: Visit Provider Obstetrics & Gynecology
DX: Z34.90 Encounter for supervision of normal pregnancy, unspecified, unspecified trimester (principal)
CPT/HCPCS: 36415; 84702

== ENCOUNTER → 2022-01-08 12:58 | Outpatient (CLI) | payer OTHER, BC, SELFPAY ==
[2022-01-08 14:25] LABS: HCG,Quantitative 3407 mIU/ml (0-5.42)
== END ==
PROVIDERS: PCP Family Medicine; Visit Provider Obstetrics & Gynecology
DX: Z34.90 Encounter for supervision of normal pregnancy, unspecified, unspecified trimester (principal)
CPT/HCPCS: 36415; 84702

== ENCOUNTER 2022-01-12 16:18 | Emergency (ER) | payer OTHER, BC, SELFPAY ==
[2022-01-12 16:19] VITALS: BP 160/96; PULSE 140; RESP 16; TEMP 36.6; O2SAT 98; BMI 36.3
--- NOTE | 2022-01-12 16:35 | US_ITS ---
PROCEDURE INFORMATION: Exam: US , Transvaginal Exam date and time: 01/12/2022 5:20 PM Age: 26 years old Clinical indication: Lmp or gestational age (in weeks): 11/26/2021; Other: Vag bleeding; ; Additional info: Vaginal bleeding, 6 wks TECHNIQUE: Imaging protocol: Real-time transvaginal obstetrical ultrasound of the maternal pelvis with image documentation. Transvaginal imaging was used for better evaluation of the fetus, adnexa, and/or cervix. COMPARISON: CT ABDOMEN PELVIS W CON 08/30/2021 9:23 PM FINDINGS: Gestation: Single living Intrauterine gestation 5 weeks 6 days +/-1 week by CRL. heart rate: FHR 93 BPM IMPRESSION: Single living intrauterine gestation 5 weeks 6 days +/-1 week with positive cardiac activity.
[2022-01-12 17:07] LABS: Microscopic, Urine URINE MICROSCOPIC (MICROSCOPIC)
[2022-01-12 17:11] VITALS: BP 115/69; PULSE 102; RESP 18; O2SAT 98
[2022-01-12 17:13] LABS: Appearance,Urine CLEAR (Clear); Bilirubin,Urine Negative (Negative); Blood, Urine 1+ (Negative); Color,Urine DK YELLOW (Yellow); Glucose,Urine (UA) Negative (Negative); Ketones,Urine Negative (Negative); Leukocyte Esterase,Urine Negative (Negative); Nitrate,Urine Negative (Negative); Protein,Urine Negative (Negative); Specific Gravity, Urine >= 1.030 (1.005-1.030); Urobilinogen,Urine 0.2 EU/dl (0.2)
[2022-01-12 17:14] LABS: Chloride 107 mmol/L (98-107); Sodium 137 mmol/L (136-145)
[2022-01-12 17:15] LABS: Potassium 4.4 mmoL/L (3.5-5.1)
[2022-01-12 17:17] LABS: Alanine Aminotransferase 45 U/L (12-78); Albumin Level 4.4 g/dl (3.5-5.0); Albumin/Globulin Ratio 1.3 (1.1-1.8); Alkaline Phosphatase 58 U/L (38-126); Anion Gap 16.4 mEq/L (5-15); Aspartate Amino Transferase 58 U/L (14-36); Bilirubin,Total 0.8 mg/dl (0.2-1.3); Blood Urea Nitrogen 9 mg/dl (7-17); Carbon Dioxide 18 mmol/L (22.0-30.0); Creatinine Clearance Estimated 250 mL/min (50-200); Estimated Glomerular Filt Rate 149 ml/min (>60); GFR (African American) 180 ML/MIN (>60); Globulin 3.4 g/dL (1.3-3.2); Total Protein,Serum 7.8 g/dl (6.3-8.2)
[2022-01-12 17:18] LABS: Glucose 108 mg/dl (74-100)
[2022-01-12 17:21] LABS: HCG Qualitative, Serum Positive (Negative)
[2022-01-12 17:31] LABS: Basophils # 0.2 K/mm3 (0-0.2); Basophils % 1.6 % (0.1-2.0); Eosinophils # 0.2 K/mm3 (0.0-0.4); Eosinophils % 1.6 % (0.1-12.0); Hematocrit 44.3 % (37.0-47.0); Hemoglobin 14.7 g/dL (12.2-16.2); Lymphocytes % 30.3 % (10-50); Mean Corpuscular HGB Conc 33.2 g/dL (31.8-35.4); Mean Corpuscular Volume 93.3 fl (81-99); Mean Platelet Volume 7.9 fl (7.4-10.4); Monocytes # 0.5 K/mm3 (0.1-1.0); Monocytes % 5.1 % (1.7-9.3); Neutrophils % 61.4 % (37.0-80.0); Platelet Count 374 K/mm3 (142-424); Red Blood Count 4.75 M/mm3 (4.20-5.40); Red Cell Distribution Width 13.6 % (11.5-17.5); White Blood Count 9.7 K/mm3 (4.8-10.8)
[2022-01-12 17:33] LABS: Bacteria,Urine 2+ /lpf
[2022-01-12 17:34] LABS: HCG,Quantitative 9046 mIU/ml (0-5.42)
[2022-01-12 18:04] VITALS: BP 142/89; PULSE 98; RESP 16; TEMP 36.6; O2SAT 98
--- NOTE | 2022-01-12 18:05 | HMH.EDABDPAI ---
ED Disposition Clinical Impression: Vaginal bleeding affecting early Disposition: Home, Self-Care Condition on Discharge: Fair Additional Instructions: Please see your OB for a repeat beta-hCG and a repeat transvaginal ultrasound. Return to the emergency department if bleeding significantly worsens, you are going through 5-6 pads in an hour, start to get lightheaded, have chest pain, shortness of breath. Referrals: Leola Guerrero [Primary Care Provider] - - Critical Care Critical Care Time: No Attestation: On 01/12/22, the high probability of a clinically significant, sudden or life threatening deterioration of the following system(s) required my full and direct attention, intervention and personal management. The time I documented below is in addition to time spent performing reported procedures but includes the following listed in this critical care notation. Medical Decision Making - Medical Records Medical records reviewed: Yes: I reviewed the patient's medical records. - Phil Inquiry Pt receiving controlled substance: No Phil was queried for this patient: No Vital Signs: 01/12/22 16:19 01/12/22 17:11 Temperature 98 F Temperature Source Oral Pulse Rate 102 H Pulse Rate [Radial] 140 H Respiratory Rate 16 18 Blood Pressure 115/69 Blood Pressure [Right Radial Artery] 160/96 H Blood Pressure Mean 84 Blood Pressure Mean [Right Radial Artery] 117 Blood Pressure Position [Right Radial Artery] Sitting 02 Sat by Pulse Oximetry 98 98 Oxygen Delivery Method Room Air - Lab Data Lab results reviewed: Yes: I reviewed the patient's lab results. Lab Results 01/12/22 16:25: Urine Color Dk yellow, Urine Appearance Clear, Urine pH 5.0, Ur Specific [place] >= 1.030, Urine Protein Negative, Urine Glucose (UA) Negative, Urine Ketones Negative, Urine Blood 1+, Urine Nitrate Negative, Urine Bilirubin Negative, Urine Urobilinogen 0.2, Ur Leukocyte Esterase Negative, Urine RBC 3-5, Urine WBC 3-5, Ur Squamous Epith Cells 3-5, Urine Bacteria 2+ 01/12/22 16:50: WBC 9.7, RBC 4.75, Hgb 14.7, Hct 44.3, MCV 93.3, MCH 31.0, MCHC 33.2, RDW 13.6, Plt Count 374, MPV 7.9, Neut % (Auto) 61.4, Lymph % (Auto) 30.3, [place] % (Auto) 5.1, Eos % (Auto) 1.6, Baso % (Auto) 1.6, Neut # (Auto) 6.0, Lymph # (Auto) 3.0, [place] # (Auto) 0.5, Eos # (Auto) 0.2, Baso # (Auto) 0.2 01/12/22 16:50: Sodium 137, Potassium 4.4, Chloride 107, Carbon Dioxide 18 L, Anion Gap 16.4 H, BUN 9, Creatinine 0.50 L, Estimated Creat Clear 250, Estimated GFR 149, Est GFR ( Amer) 180, Glucose 108 H, Calcium 9.0, Total Bilirubin 0.8, AST 58 H, ALT 45, Alkaline Phosphatase 58, Total Protein 7.8, Albumin 4.4, Globulin 3.4 H, Albumin/Globulin Ratio 1.3 01/12/22 16:50: Blood Type O Positive 01/12/22 16:50: Serum HCG, Qual Positive 01/12/22 16:50: HCG, Quant [id number] H Result diagrams: 01/12/22 16:50 01/12/22 16:50 Orders (Tests/Meds): ED MEDICATIONS Discontinued Medications Generic Name Dose Route Start Last Admin Trade Name Freq PRN Reason Stop Dose Admin Ondansetron HCl 4 mg 01/12/22 16:52 01/12/22 17:10 Ondansetron 4mg/2ml Vial IV 01/12/22 16:53 Not Given ONCE ONE Ondansetron HCl 4 mg 01/12/22 17:10 01/12/22 17:12 Ondansetron 4mg Odt SL 01/12/22 17:11 4 mg ONCE ONE Administration ORDERS Category Date Time Status Urine Culture Stat Micro 01/12/22 16:25 Received US OB transvaginal Stat Ultrasound 01/12/22 16:35 Taken Medical Decision Narrative: Patient is a 26-year-old female with past medical history of endometriosis presenting to the ED for vaginal bleeding and abdominal pain. Patient is awake, alert, not in acute distress. Patient is a medically stable, afebrile. Patient's physical exam is remarkable for tenderness to palpation of the suprapubic region. Differential includes but is not limited to subchorionic hemorrhage, incomplete , complete . Given this a CBC, CMP, ABO, quanti
== END 2022-01-12 18:05 | disposition home or self-care (01) ==
PROVIDERS: Emergency Provider Emergency Medicine; PCP Family Medicine
DX: O20.8 Other hemorrhage in early pregnancy (principal); O26.891 Other specified pregnancy related conditions, first trimester; Z3A.01 Less than 8 weeks gestation of pregnancy; N80.9 Endometriosis, unspecified; Z88.0 Allergy status to penicillin; Z88.2 Allergy status to sulfonamides; Z88.8 Allergy status to other drugs, medicaments and biological substances; Z91.011 Allergy to milk products; Z91.018 Allergy to other foods; Z82.49 Family history of ischemic heart disease and other diseases of the circulatory system
CPT/HCPCS: 76817; 80053; 81001; 84702; 84703; 85025; 86900; 86901; 87086; 99284

== ENCOUNTER → 2022-01-15 10:08 | Outpatient (CLI) | payer OTHER, BC, SELFPAY ==
--- NOTE | 2022-01-15 10:12 | US_ITS ---
FINAL REPORT CLINICAL HISTORY: Dates FINDINGS: Transvaginal sonographic images of the pelvis were obtained. There is a single living intrauterine . Average ultrasound age of 6 weeks 2 day gestation. There is a bicornuate uterus. The right ovary measures 4.3 x 3.7 x 3.1 cm. The left ovary measures 4.0 x 3.6 x 2.7 cm. There are 2 cysts in the left ovary, largest measures 1.9 cm. There is a small cyst in the right ovary measuring 1.5 cm. [place]-rump length measures 0.52 cm consistent with 6 week 2 day gestation. Heart rate is detected at 119 bpm. Yolk sac measures 0.55 cm. IMPRESSION: Single living IUP with an ultrasound age of 6 week 2 days. Reviewed, Interpreted and Dictated by Danish Wolfe III, MD Transcribed by Juju Christina Authenticated by Danish Wolfe III, MD on 01/15/2022 12:47:50 PM [facility]
== END ==
PROVIDERS: PCP Family Medicine; Visit Provider Obstetrics & Gynecology
DX: Z34.90 Encounter for supervision of normal pregnancy, unspecified, unspecified trimester (principal)
CPT/HCPCS: 76801

== ENCOUNTER → 2022-02-07 10:09 | Outpatient (CLI) | payer OTHER, BC, SELFPAY ==
[2022-02-07 10:53] LABS: Basophils # 0.1 K/mm3 (0-0.2); Basophils % 0.9 % (0.1-2.0); Eosinophils # 0.2 K/mm3 (0.0-0.4); Eosinophils % 2.4 % (0.1-12.0); Hematocrit 40.1 % (37.0-47.0); Hemoglobin 13.3 g/dL (12.2-16.2); Lymphocytes # 2.5 K/mm3 (0.7-4.5); Lymphocytes % 33.4 % (10-50); Mean Corpuscular HGB Conc 33.2 g/dL (31.8-35.4); Mean Corpuscular Hemoglobin 30.2 pg (27.0-31.2); Mean Corpuscular Volume 90.8 fl (81-99); Mean Platelet Volume 6.7 fl (7.4-10.4); Monocytes # 0.3 K/mm3 (0.1-1.0); Neutrophils # 4.4 K/mm3 (1.8-7.8); Neutrophils % 59.3 % (37.0-80.0); Platelet Count 352 K/mm3 (142-424); Red Blood Count 4.42 M/mm3 (4.20-5.40); Red Cell Distribution Width 13.2 % (11.5-17.5); White Blood Count 7.4 K/mm3 (4.8-10.8)
== END ==
PROVIDERS: Visit Provider Obstetrics & Gynecology
DX: Z34.90 Encounter for supervision of normal pregnancy, unspecified, unspecified trimester (principal)
CPT/HCPCS: 36415; 85025; 86850; C9803; U0003; U0005

== ENCOUNTER 2022-02-08 06:01 | Day surgery (SDC) | payer OTHER, BC, SELFPAY ==
[2022-02-08] VITALS (12 sets, daily range): BP systolic 119–151; BP diastolic 65–97; PULSE 92–114; RESP 12–18; TEMP 36.4–36.8; O2SAT 92–98; BMI 37.3
--- NOTE | 2022-02-08 | US_ITS ---
FINAL REPORT CLINICAL HISTORY: .DONE IN OR DURING D/C FOR MISSED AB-- PT HAS HX OF BICORNUATE UTERUS FINDINGS: US PELVIS Limited intraoperative sonography was performed. There appears to be a bicornuate uterus. IMPRESSION: Ultrasound-guided operative procedure. Reviewed, Interpreted and Dictated by Faizan Harris MD Transcribed by Aba Montelongo Authenticated by Faizan Harris MD on 02/08/2022 11:04:31 AM [facility]
--- NOTE | 2022-02-08 07:11 | P.PN_ITS ---
[facility] Anesthesia Checklist - Structural Data Admitted From: Home Planned Operative Procedure/s: d/c Consent for Planned Operative Procedure(s) Verified: Yes - Additional verifications Anesthesia Reactions: Yes (n/v stated extreme , and urinary retention) Hx Blood Transfusions: No Blood Transfusion Reaction: No - Airway Assessment C-Spine Mobility Assessed: Yes TMJ Mobility Assessed: Yes Dentition: Good Dentition - Neurological Assessment Level of Consciousness: Awake, Alert, Appropriate - Anesthesia Plan Anesthesia Risk discussed: Yes Anesthesia Plan: Verified ASA Class: II Anesthesia Type: General [facility] History I have reviewed the patient's past medical history: Yes Medical History: Denies:: Cancer, Diabetes Mellitus Type 1, Diabetes Mellitus Type 2, Internal Pacemaker, MRSA, Seizures *Have you ever received a pneumonia vaccine?: No *Have you received a flu vaccine this season?: Yes Other Medical History: Denies: Blood Transfusion Reaction Anesthesia experience/problems:: none Laterality Cases: Bilateral: Myringotomy (Ear Tubes) Other Surgeries: Yes: Cholecystectomy. No: Pacemaker Amputation: No Fractures: No - *Social History Last grade of school completed: Advanced degree Smoking Status: Never smoker Alcohol Intake: former Alcohol Intake Frequency:: holidays/special occasions only Substance Use Type: denies use *Occupational Status:: unemployed Housing: house Household Members: spouse, family *Travel in the last 8 weeks: None Family Hx:: Cancer, Diabetes, Heart Attack, Stroke
--- NOTE | 2022-02-08 08:27 | HMH.ANESI ---
[facility] Anesthesia Record Part I Intake, IV Amount: 800 Estimated blood loss (mL): 300 Urine output (mL): 0 Blood Pressure: 124/88 SaO2: 96 Pulse Rate: 105 Respiratory Rate: 12 Temperature: 98.3 F Patient is:: Awake, Stable Stable to PACU at:: 08:20
--- NOTE | 2022-02-08 08:42 | HMH.OPNOTE ---
Date of procedure: 02/08/22 Pre-op Diagnosis:: 1. Missed 7 4/7 weeks 2. Bicornuate uterus Post-op Diagnosis:: same Procedure performed:: Suction Dilation and Curettage with intra-operative ultrasound assistance Surgeon:: Nathalie Celaya MD SHIPBOARD INTELLIGENCE ANALYST:: Kiran Escamilla Anesthesia: GETA Estimated blood loss (mL): 300 Operative findings:: bicornuate uterus no cardiac activity Operative note:: The patient was taken to the OR and general anesthesia administered without difficulty. She was prepped and draped in lithotomy position. Taylor retractors were used to visualize the cervix and a single tooth tenaculum placed on the anterior lip of the cervix. The cervix was passively dilated until it could accomodate the suction curette. A size # 7 curved curette was introduced into the uterine cavity without complication or difficulty. Abdominal ultrasound assistance was utilized during curettage because of known bicornuate uterus. The suction curette was used to evacuate the contents of the uterus. Complete evacuation of the contents of the uterus was confirmed by ultrasound visualization. All instruments were then removed from the patients vagina, she was taken out of lithotomy position, awakened from anesthesia and taken to the PACU in stable condition. EBL: 300 Condition: stable Disposition: PACU Specimens:: products of conception Complications:: none
--- NOTE | 2022-02-08 12:28 | P.PN_ITS ---
[facility] Anesthesia Record Part II Discharge Time: 08:50 Destination: [facility] PACU nurse assessment reviewed?: Yes Patient Condition:: Good Anesthesia Complications:: None Swallowing reflex intact?: Yes Cyanosis?: No Blood Pressure: 129/86 Pulse Rate: 94 Temperature: 97.5 F Mental Status: Alert & Oriented Pain level:: 2 Nausea and/or vomitting:: None Intake, IV Amount: 800
== END 2022-02-08 09:55 | disposition home or self-care (01) ==
LOC: OR 06:02
PROVIDERS: PCP Family Medicine; Visit Provider Obstetrics & Gynecology
PROC: (CPT 59820; principal; 2022-02-08 07:30)
DX: O02.1 Missed abortion (principal); Q51.3 Bicornate uterus; E03.9 Hypothyroidism, unspecified
CPT/HCPCS: 59820; 76856; 96374; J2405

== ENCOUNTER 2022-04-11 11:31 | Emergency (ER) | payer OTHER, BC, SELFPAY ==
[2022-04-11 12:05] VITALS: BP 153/96; PULSE 100; RESP 18; TEMP 36.8; O2SAT 98; BMI 36.3
--- NOTE | 2022-04-11 12:46 | HMH.EDUTC ---
[facility] [place] Clinical Impression: Otitis media Qualifiers: Otitis media type: unspecified Laterality: bilateral Qualified Code(s): H66.93 - Otitis media, unspecified, bilateral Sinusitis Qualifiers: Sinusitis location: unspecified location Chronicity: unspecified Qualified Code(s): J32.9 - Chronic sinusitis, unspecified Disposition: Home, Self-Care Condition on Discharge: Good Instructions: Sinusitis, Middle Ear Infection, DI for Sinusitis Additional Instructions: *Monitor Temp, Over the counter Motrin or Tylenol as directed/as needed Tylenol every 4 hours and Motrin every 6 hours (as long as your family doctor has told you that you can take it) for fever or pain. and straight to ER if unable to lower temp less than 101.0 after medication given *Warm salt water gargles may help to soothe the throat *Throat Lozenges *Warm fluids like tea with honey may help to soothe the throat *Sleep elevated *Humidifier/Vaporizer Take medication as prescribed Follow up IMMEDIATELY for new or worsening symptoms or no Noticeable improvement over the next 48-72 hours. 911 for difficulty breathing or swallowing Prescriptions: methylPREDNISolone [Medrol 4mg tab] 4 mg PO DIRECTED #21 tab Transmission Status: Pending to [facility] Azithromycin [Z-Troy 250mg Tab] 250 mg PO DIRECTED #6 tab Transmission Status: Pending to [facility] Referrals: Leola Guerrero [Primary Care Provider] - As needed Time of Disposition: 12:53 Medical Decision Making - Phil Inquiry Pt receiving controlled substance: No Phil was queried for this patient: No Vital Signs: 04/11/22 12:05 Temperature 98.2 F Temperature Source Oral Pulse Rate [Left Brachial] 100 H Respiratory Rate 18 Blood Pressure [Left Arm] 153/96 H Blood Pressure Mean [Left Arm] 115 Blood Pressure Source [Left Arm] Automatic Cuff Blood Pressure Position [Left Arm] Sitting 02 Sat by Pulse Oximetry 98 Oxygen Delivery Method Room Air Medical Decision Narrative: Patient denies states that she has taken azithromycin and Medrol in the past without difficulty or reactions [facility] HPI - General Stated complaint: congestion, runny nose, h/a, bilateral ear pain Time Seen by Provider: 04/11/22 12:46 Mode of Arrival: Ambulatory Source of Information: Patient Limitations: No Limitations Description of Symptoms (Recalled from Triage Doc. by RN): PATIENT PATIENT SORE THROAT, CONGESTION, SNEEZING, EAR PAIN, HEADACHE, AND SINUS PRESSURE X 2 DAYS HEENT Symptoms (Recalled from RN notes): Yes Resp Symptoms (Recalled from RN notes): No Skin Symptoms (Recalled from RN notes): No MS Symptoms (Recalled from RN notes): No Functional Status (Recalled from RN notes): WNL - History of Present Illness Provider Complaint: Patient states that she has not felt well for several days States that she has been having sinus pain and pressure bilateral ear pain sore throat and cough States that she took at home COVID test and they was negative - Related Data Home Medications Medication Instructions Recorded Confirmed valacyclovir 500 mg tablet 500 mg PO DAILY 12/09/19 04/05/22 escitalopram oxalate 20 mg tablet 20 mg PO DAILY 01/17/22 04/05/22 levothyroxine 75 mcg capsule 75 mcg PO DAILY 01/17/22 04/05/22 Ferrous Sulfate 325 mg PO DAILY 02/08/22 04/05/22 fexofenadine 180 mg tablet 180 mg PO DAILY 04/05/22 04/05/22 hydroxyzine HCl 25 mg tablet 25 mg PO HS 04/05/22 04/05/22 Previous Rx's Medication Instructions Recorded ondansetron 4 mg disintegrating 4 mg PO Q4H PRN #30 tab 01/17/22 tablet clomiphene citrate 50 mg tablet 100 mg PO DAILY 5 Days #10 tab 04/05/22 fluconazole 150 mg tablet 150 mg PO ONCE #2 tab 04/05/22 Azithromycin [Z-Troy 250mg Tab] 250 mg PO DIRECTED #6 tab 04/11/22 methylPREDNISolone [Medrol 4mg 4 mg PO DIRECTED #21 tab 04/11/22 tab] Allergies Allergy/AdvReac Type Severity Reaction Status Date / Time Pen
[2022-04-11 12:55] VITALS: BP 153/96; PULSE 100; RESP 18; TEMP 36.8; O2SAT 98
== END 2022-04-11 12:58 | disposition home or self-care (01) ==
PROVIDERS: Emergency Provider Nurse Practitioner; PCP Family Medicine
DX: H66.93 Otitis media, unspecified, bilateral (principal); J32.9 Chronic sinusitis, unspecified
CPT/HCPCS: 99212; G0463

== ENCOUNTER → 2022-08-19 09:51 | Outpatient (CLI) | payer OTHER, BC, SELFPAY ==
[2022-08-20 08:18] LABS: Progesterone 30.2 ng/mL (.)
== END ==
PROVIDERS: PCP Family Medicine; Visit Provider Obstetrics & Gynecology
DX: N97.9 Female infertility, unspecified (principal)
CPT/HCPCS: 36415; 84144

== ENCOUNTER 2022-10-07 17:53 | Emergency (ER) | payer OTHER, BC, SELFPAY ==
--- NOTE | 2022-10-07 19:30 | EXP.UTC ---
Discharge Plan Disposition Patient Disposition: Home, Self-Care Condition: Good Prescriptions Prescriptions: New methylprednisolone 4 mg Tablets,Dose Pack 4 mg PO DIRECTED Qty: 21 0RF lcelttvoxkplfpq-[id number]-YS [Bromfed DM] 2-30-10 mg/5 mL Syrup 5 ml PO Q6H PRN (Reason: Cough) Qty: 240 0RF cefdinir 300 mg capsule 300 mg PO BID Qty: 20 0RF No Action valacyclovir 500 mg tablet 500 mg PO DAILY Label Comments: TAKE 1 TABLET BY MOUTH ONCE DAILY ondansetron 4 mg tablet,disintegrating 4 mg PO Q4H PRN (Reason: nausea and vomiting) Qty: 30 4RF levothyroxine 75 mcg capsule 75 mcg PO DAILY escitalopram oxalate [Lexapro] 20 mg tablet 20 mg PO DAILY fexofenadine [Jennifer Allergy] 180 mg tablet 180 mg PO DAILY hydroxyzine HCl 25 mg tablet 25 mg PO HS fluconazole [Diflucan] 150 mg tablet 150 mg PO ONCE Qty: 2 0RF Rx Instructions: may repeat second dose 72 hrs after first dose if symptoms persist metronidazole 500 mg tablet 500 mg PO BID 5 Days Qty: 10 0RF Rx Instructions: Pt. is to take all 4 tablets at the same time naproxen 500 mg tablet 500 mg PO BID PRN (Reason: pain) Qty: 60 5RF aspirin [Adult Low Dose Aspirin] 81 mg tablet,delayed release (DR/EC) 81 mg PO DAILY Qty: 30 6RF letrozole 2.5 mg tablet 5 mg PO DAILY 5 Days Qty: 10 0RF Rx Instructions: begin between days 3 and 7 of menstrual cycle azithromycin 250 MG tablet 250 mg PO DIRECTED Qty: 6 0RF Rx Instructions: Take two (2) tablets on day #1, then one (1) tablet day #2 thru #5 methylprednisolone 4 MG tablet 4 mg PO DIRECTED Qty: 21 0RF Rx Instructions: Take as directed on package instructions ferrous sulfate 325 MG tablet 325 mg PO DAILY Referrals Follow up/Referrals: Leola Guerrero [Primary Care Provider] - See instructions Activity Restrictions/Add. Instructions Additional Instructions/Restrictions: Drink plenty of fluids. Take tylenol or ibuprofen for pain or fever. Take the medications as directed. Follow up with your regular doctor. GO TO THE ER FOR ANY WORSENING SYMPTOMS Clinical Impressions Clinical Impression: Otitis media Instructions Patient Instructions: Middle Ear Infection Discharge ED Provider: Jayson Clark [facility] General Stated complaint: bilateral ear pain Time Seen by Provider: 10/07/22 19:30 History of Present Illness Provider Complaint: She states that for the past 2 days she has had worsening left ear pain. She denies any fever/chills/body aches. Related Data Home Medications Medication Instructions Recorded Confirmed valacyclovir 500 mg tablet 500 mg PO DAILY unknown 12/09/19 04/19/22 escitalopram oxalate 20 mg tablet 20 mg PO DAILY . 01/17/22 04/19/22 (Lexapro) levothyroxine 75 mcg capsule 75 mcg PO DAILY thyroid 01/17/22 04/19/22 ferrous sulfate 325 mg (65 mg 325 mg PO DAILY Supplement 02/08/22 04/19/22 iron) tablet fexofenadine 180 mg tablet 180 mg PO DAILY 04/05/22 04/19/22 (Jennifer Allergy) hydroxyzine HCl 25 mg tablet 25 mg PO HS 04/05/22 04/19/22 Previous Rx's Medication Instructions Recorded ondansetron 4 mg disintegrating 4 mg PO Q4H PRN nausea and 01/17/22 tablet vomiting #30 tabs fluconazole 150 mg tablet 150 mg PO ONCE #2 tabs 04/05/22 (Diflucan) azithromycin 250 mg tablet 250 mg PO DIRECTED #6 tabs 04/11/22 methylprednisolone 4 mg tablet 4 mg PO DIRECTED #21 tabs 04/11/22 metronidazole 500 mg tablet 500 mg PO BID 5 days #10 tabs 04/11/22 naproxen 500 mg tablet 500 mg PO BID PRN pain #60 tabs 04/19/22 aspirin 81 mg tablet,delayed 81 mg PO DAILY #30 tabs 09/27/22 release (Adult Low Dose Aspirin) letrozole 2.5 mg tablet 5 mg PO DAILY 5 days #10 tabs 09/30/22 leysyupvzssqmor-yrjngptcxajszcy-YY 5 ml PO Q6H PRN Cough #240 mL 10/07/22 2 mg-30 mg-10 mg/5 mL oral syrup (Bromfed DM) cefdinir 300 mg capsule 300 mg PO BID #20 ca
[2022-10-07 19:36] VITALS: BP 141/93; PULSE 78; RESP 18; TEMP 36.7; O2SAT 96; BMI 37.2
[2022-10-07 20:00] VITALS: BP 141/93; PULSE 78; RESP 18; TEMP 36.7
== END 2022-10-07 20:06 | disposition home or self-care (01) ==
PROVIDERS: Emergency Provider Nurse Practitioner Family; PCP Family Medicine
DX: H66.90 Otitis media, unspecified, unspecified ear (principal)
CPT/HCPCS: 99212; G0463

== ENCOUNTER → 2022-10-18 12:47 | Outpatient (CLI) | payer OTHER, BC, SELFPAY ==
[2022-10-20 11:33] LABS: Progesterone 3.3 ng/mL (.)
== END ==
PROVIDERS: PCP Family Medicine; Visit Provider Obstetrics & Gynecology
DX: N97.9 Female infertility, unspecified (principal)
CPT/HCPCS: 36415; 84144

== ENCOUNTER 2022-11-24 09:12 | Emergency (ER) | payer OTHER, BC, SELFPAY ==
[2022-11-24 09:25] VITALS: BP 146/95; PULSE 108; RESP 20; TEMP 36.9; O2SAT 95; BMI 35.4
--- NOTE | 2022-11-24 09:35 | EXP.UTC ---
Discharge Plan Disposition Patient Disposition: Home, Self-Care Condition: Good Prescriptions Prescriptions: New azithromycin [Zithromax] 250 mg tablet 250 mg PO UD DOSE PK Qty: 6 0RF Rx Instructions: Take two (2) tablets today, then one (1) tablet days #2 thru #5 methylprednisolone 4 mg Tablets,Dose Pack 4 mg PO DIRECTED Qty: 21 0RF No Action valacyclovir 500 mg tablet 500 mg PO DAILY Label Comments: TAKE 1 TABLET BY MOUTH ONCE DAILY levothyroxine 75 mcg capsule 75 mcg PO DAILY fluoxetine 40 mg capsule 40 mg PO DAILY letrozole 2.5 mg tablet 7.5 mg PO DAILY Rx Instructions: begin between days 3 and 7 of menstrual cycle aspirin [Adult Low Dose Aspirin] 81 mg tablet,delayed release (DR/EC) 81 mg PO DAILY Referrals Follow up/Referrals: Leola Guerrero [Primary Care Provider] - See instructions Activity Restrictions/Add. Instructions Additional Instructions/Restrictions: Drink plenty of fluids. Take tylenol or ibuprofen for pain or fever. Take the medications as directed. Follow up with your regular doctor. GO TO THE ER FOR ANY WORSENING SYMPTOMS Clinical Impressions Clinical Impression: Sinusitis, Bronchitis Instructions Patient Instructions: DI for Sinusitis Discharge ED Provider: Jayson Clark [facility] [place] [facility] HPI General Stated complaint: Congestion,sore throat,snezzing, itchy eyes Time Seen by Provider: 11/24/22 09:35 History of Present Illness Provider Complaint: She states that for the past 3 days she has had sinus congestion, chest congestion, productive cough, and a sore throat. Related Data Home Medications Medication Instructions Recorded Confirmed valacyclovir 500 mg tablet 500 mg PO DAILY unknown 12/09/19 11/24/22 levothyroxine 75 mcg capsule 75 mcg PO DAILY thyroid 01/17/22 11/24/22 aspirin 81 mg tablet,delayed 81 mg PO DAILY . 11/24/22 11/24/22 release (Adult Low Dose Aspirin) fluoxetine 40 mg capsule 40 mg PO DAILY OCD 11/24/22 11/24/22 letrozole 2.5 mg tablet 7.5 mg PO DAILY . 11/24/22 11/24/22 Previous Rx's Medication Instructions Recorded azithromycin 250 mg tablet 250 mg PO UD DOSE PK #6 tabs 11/24/22 (Zithromax) methylprednisolone 4 mg tablets in 4 mg PO DIRECTED #21 tabs 11/24/22 a dose pack Allergies Allergy/AdvReac Type Severity Reaction Status Date / Time Penicillins [PENICILLINS] Allergy Unknown Verified 11/24/22 09:38 lactose Allergy Verified 11/24/22 09:38 mushroom Allergy Verified 11/24/22 09:38 sulfamethoxazole AdvReac diarrhea Verified 11/24/22 09:38 [From Bactrim] trimethoprim [From Bactrim] AdvReac diarrhea Verified 11/24/22 09:38 [facility] Disclaimer: The information contained in this section may have been updated after the patient was seen, as this information can be updated by other users. Social History Smoking Status: Never smoker second hand exposure: Yes alcohol intake: never substance use type: denies use current occupational status: other Travel in the last 8 weeks: None household members: spouse and family housing: house current occupational exposures/hazards: No caffeine: No ROS Obtained: Yes All systems reviewed & no additional complaints except as documented Constitutional Constitutional: Reports chills and Denies fever(s) Eyes Eyes: Denies eye discharge ENT Ears, Nose, Mouth, and Throat: Reports as per HPI Cardiovascular Cardiovascular: Denies chest pain Respiratory Respiratory: Denies chest congestion and Reports cough Gastrointestinal Gastrointestingal: Reports nausea; Denies abdominal pain, constipation, cramping, diarrhea or vomiting Musculoskeletal Musculoskeletal: Denies arthralgias Integumentary/Breasts Skin/Breast: Denies rash Neurologic Neurologic: Denies paresthesias Physical Exam General General appearance: alert and in no apparent distress Eye Ey
[2022-11-24 10:43] VITALS: BP 146/95; PULSE 108; RESP 20; TEMP 36.9; O2SAT 95
== END 2022-11-24 10:43 | disposition home or self-care (01) ==
PROVIDERS: Emergency Provider Nurse Practitioner Family; PCP Family Medicine
DX: J32.9 Chronic sinusitis, unspecified (principal); J40 Bronchitis, not specified as acute or chronic
CPT/HCPCS: 99212; 99213; G0463

== ENCOUNTER 2023-01-20 20:38 | Emergency (ER) | payer OTHER, BC, SELFPAY ==
[2023-01-20 20:38] VITALS: BP 150/106; PULSE 86; RESP 19; TEMP 36.7; O2SAT 99; BMI 36.3
[2023-01-20 20:39] VITALS: BMI 36.3
--- NOTE | 2023-01-20 20:39 | XR_ITS ---
PROCEDURE INFORMATION: Exam: XR Chest Exam date and time: 01/20/2023 9:05 PM Age: 27 years old Clinical indication: Sternal or substernal pain; Additional info: Chest pain TECHNIQUE: Imaging protocol: Radiologic exam of the chest. Views: 2 views. Total images: 2 COMPARISON: CT ABDOMEN PELVIS W CON 08/30/2021 9:23 PM FINDINGS: Lungs: Unremarkable. No consolidation. No pulmonary vascular congestion or edema. Pleural spaces: Unremarkable. No pleural effusion. No pneumothorax. Heart/Mediastinum: Unremarkable. No cardiomegaly. No mediastinal widening or hilar enlargement. Bones/joints: Unremarkable. IMPRESSION: No radiographically acute cardiopulmonary process.
--- NOTE | 2023-01-20 20:39 | ECG_ITS ---
APPROVED REPORT Exam: Resting ECG HR:109 bpm ECG Measurements Heart Rate 109 AXES DE 144 P 72 QRSd 104 QRS 82 QT 354 T 62 QTc 418 Conclusion SINUS TACHYCARDIA ABNORMAL RHYTHM ECG UNCONFIRMED REPORT Electronically signed by : Renny Sharma MD 01/21/2023 20:41:24
[2023-01-20 20:46] VITALS: BP 151/108; PULSE 82; RESP 16; O2SAT 96
[2023-01-20 20:50] VITALS: PULSE 85
--- NOTE | 2023-01-20 20:51 | PC.NURSE ---
patient in room, no needs voiced at this time.
[2023-01-20 20:57] LABS: Basophils # 0.1 K/mm3 (0-0.2); Basophils % 1.4 % (0.1-2.0); Eosinophils # 0.4 K/mm3 (0.0-0.4); Eosinophils % 3.7 % (0.1-12.0); Hematocrit 45.7 % (37.0-47.0); Hemoglobin 15.4 g/dL (12.2-16.2); Lymphocytes # 3.5 K/mm3 (0.7-4.5); Mean Corpuscular HGB Conc 33.7 g/dL (31.8-35.4); Mean Corpuscular Hemoglobin 30.3 pg (27.0-31.2); Mean Corpuscular Volume 89.9 fl (81-99); Monocytes # 0.4 K/mm3 (0.1-1.0); Monocytes % 4.2 % (1.7-9.3); Neutrophils # 5.8 K/mm3 (1.8-7.8); Neutrophils % 56.7 % (37.0-80.0); Platelet Count 326 K/mm3 (142-424); Red Blood Count 5.08 M/mm3 (4.20-5.40); Red Cell Distribution Width 13.2 % (11.5-17.5); White Blood Count 10.2 K/mm3 (4.8-10.8)
[2023-01-20 21:01] VITALS: BP 154/96; PULSE 86; RESP 14; O2SAT 97
[2023-01-20 21:06] LABS: Chloride 104 mmol/L (98-107)
[2023-01-20 21:07] LABS: HCG Qualitative, Serum Negative (Negative); Potassium 4.2 mmoL/L (3.5-5.1); Sodium 140 mmol/L (136-145)
[2023-01-20 21:09] LABS: Blood Urea Nitrogen 10 mg/dl (7-17); Creatinine Clearance Estimated 207 mL/min (50-200); Estimated Glomerular Filt Rate 120 ml/min (>60); GFR (African American) 145 ML/MIN (>60); HDL Cholesterol 32 mg/dl (40-60); Lipase 82 U/L (23-300)
[2023-01-20 21:10] LABS: Anion Gap 15.2 mEq/L (5-15); Calcium 9.2 mg/dl (8.4-10.2); Carbon Dioxide 25 mmol/L (22.0-30.0); Chol/HDL Ratio 5.9 (1-3.5); Cholesterol 189 mg/dl (140-200); Glucose 90 mg/dl (74-100); Triglycerides 225 mg/dl (30-150); VLDL Cholesterol 45 mg/dL (0-40)
[2023-01-20 21:15] LABS: C-Reactive Protein 2.4 mg/L (0-4)
--- NOTE | 2023-01-20 21:16 | PC.NURSE ---
patient back from [facility] at this time.
[2023-01-20 21:20] LABS: Direct LDL Cholesterol 120.08 mg/dL (100-129); Erythrocyte Sedimentation Rate 14 mm/hr (0-20)
[2023-01-20 21:24] LABS: Troponin I < 0.01 ng/ml (0.00-0.034)
[2023-01-20 21:31] VITALS: BP 132/85; PULSE 74; RESP 12; O2SAT 98
[2023-01-20 22:01] LABS: Alanine Aminotransferase 42 U/L (12-78); Albumin Level 4.7 g/dl (3.5-5.0); Alkaline Phosphatase 78 U/L (38-126); Aspartate Amino Transferase 38 U/L (14-36); Bilirubin,Direct 0.1 mg/dl (0.0-0.4); Bilirubin,Indirect 0.4 mg/dL (0.0-0.9); Bilirubin,Total 0.5 mg/dl (0.2-1.3); Bilirubin,Unconjugated 0.4 mg/dL (0.0-1.1); Total Protein,Serum 8.2 g/dl (6.3-8.2)
[2023-01-20 22:19] LABS: T4 (Thyroxine) 12.1 ug/dl (5.53-11.0)
[2023-01-20 22:33] LABS: Thyroid Stimulating Hormone 2.33 uIU/mL (0.465-4.68)
[2023-01-20 23:48] LABS: Troponin I 0.01 ng/ml (0.00-0.034)
--- NOTE | 2023-01-21 00:36 | [facility].EDCP ---
Discharge Plan Disposition Patient Disposition: Home, Self-Care Prescriptions Prescriptions: No Action valacyclovir 500 mg tablet 500 mg PO DAILY Label Comments: TAKE 1 TABLET BY MOUTH ONCE DAILY levothyroxine 75 mcg capsule 75 mcg PO DAILY fluoxetine 40 mg capsule 40 mg PO DAILY Clinical Impressions Clinical Impression: Atypical chest pain Instructions Patient Instructions: DI for Atypical Chest Pain Discharge ED Provider: Jeremie (ED),Mark Stanton Chest Pain HPI General Chief Complaint: Chest Pain Stated Complaint: chest pain Time Seen by Provider: 01/21/23 00:37 Mode of Arrival: Ambulatory Source of Information: Patient, Spouse and Medical Record Limitations: No Limitations Description of Symptoms (Recalled from ER Triage Doc. by RN): 27 F presents from home c/o midsternal to right sided chest pain that started approximately 1 week ago. This pain is now radiating to her shoulder blades and right arm. Nothing makes this better or worse for the patient. She has no known cardiac history. Patient associates some nausea and a headache earlier in the week, but that is now resolved. Last meal was around 1400 today History of Present Illness HPI narrative: over the last week has had rt sided chest pain w/o fever or rash and no recent viral illness - no tob and no known ht dis - sl worse with insp but no sob - no hx of dvt or immbolity MD complaint: chest pain Onset (ago): day(s) Duration: intermittent Activity at onset: during rest Pain location: right chest Severity: moderate Quality: sharp Pain radiation: RUE Exacerbating factors: nothing Risk Factors for CAD: Family Hx of CAD Treatments prior to or on arrival for Cardiac Chest Pain: none TIMOTHY Score for Non-Stemi Age of Patient: <30 years old Heart Rate: 70-89 bpm Systolic Blood Pressure: 140-159 mmHg Serum Creatinine: 0.40-0.79 mg/dl CHF [place] Class: I-No CHF Other Risk Factors: None Non-Stemi Risk Score: 37 Risk Stratification: 1-108 = Low Risk Related Data On Oral Contraceptives: No Home Medications Medication Instructions Recorded Confirmed valacyclovir 500 mg tablet 500 mg PO DAILY Cold Sores 12/09/19 01/20/23 levothyroxine 75 mcg capsule 75 mcg PO DAILY Thyroid 01/17/22 01/20/23 fluoxetine 40 mg capsule 40 mg PO DAILY OCD 11/24/22 01/20/23 Allergies Allergy/AdvReac Type Severity Reaction Status Date / Time Penicillins [PENICILLINS] Allergy Unknown Verified 11/24/22 09:38 lactose Allergy Verified 11/24/22 09:38 mushroom Allergy Verified 11/24/22 09:38 sulfamethoxazole AdvReac diarrhea Verified 11/24/22 09:38 [From Bactrim] trimethoprim [From Bactrim] AdvReac diarrhea Verified 11/24/22 09:38 [facility] Disclaimer: The information contained in this section may have been updated after the patient was seen, as this information can be updated by other users. Social History Smoking Status: Never smoker second hand exposure: Yes alcohol intake: never substance use type: denies use current occupational status: other Travel in the last 8 weeks: None household members: spouse and family housing: house current occupational exposures/hazards: No caffeine: No ROS Obtained: Yes All systems reviewed & no additional complaints except as documented Physical Exam General General appearance: alert Head Head exam: normocephalic Eye Eye exam: Present PERRL and EOMI; Absent scleral icterus ENT ENT exam: Present mucous membranes moist Neck Neck exam: Present trachea midline Chest Chest inspection: Absent tenderness Respiratory Respiratory exam: Present normal lung sounds bilaterally; Absent respiratory distress Cardiovascular Cardiovascular exam: Present regular rate; Absent systolic murmur, rubs, gallop or clicks Abdominal Exam Abdominal exam: Present soft Extremities Exam Extremities exam: Present full ROM Neurological Exam Neurological
[2023-01-21 00:42] VITALS: BP 132/93; PULSE 82; RESP 15; TEMP 36.5; O2SAT 99
== END 2023-01-21 00:53 | disposition home or self-care (01) ==
PROVIDERS: Emergency Provider Emergency Medicine; PCP Family Medicine
DX: R07.89 Other chest pain (principal); M79.601 Pain in right arm
CPT/HCPCS: 71046; 80048; 80061; 80076; 83690; 84436; 84443; 84484; 84703; 85025; 85651; 86140; 93005; 96360; 96374; 96375; 99285

== ENCOUNTER 2023-02-26 17:54 | Emergency (ER) | payer OTHER, BC, SELFPAY ==
[2023-02-26 18:04] VITALS: BP 126/85; PULSE 106; RESP 16; TEMP 36.9; O2SAT 97; BMI 36.3
--- NOTE | 2023-02-26 18:26 | EXP.UTC ---
Discharge Plan Disposition Patient Disposition: Home, Self-Care Condition: Good Prescriptions Prescriptions: New ofloxacin 0.3 % drops 10 drp otic (ear) DAILY 7 Days Qty: 10 0RF cefdinir 300 mg capsule 300 mg PO BID Qty: 20 0RF No Action valacyclovir 500 mg tablet 500 mg PO DAILY Label Comments: TAKE 1 TABLET BY MOUTH ONCE DAILY levothyroxine 75 mcg capsule 75 mcg PO DAILY omeprazole 20 mg capsule,delayed release(DR/EC) 20 mg PO DAILY norgestimate-ethinyl estradiol [Sprintec (28)] 0.25-35 mg-mcg tablet 1 tab PO DAILY Qty: 84 4RF lisinopril 10 mg tablet 10 mg PO DAILY medroxyprogesterone [Provera] 10 mg tablet 20 mg PO DAILY 7 Days Qty: 14 0RF fluoxetine 40 mg capsule 60 mg PO DAILY Referrals Follow up/Referrals: Leola Guerrero [Primary Care Provider] - See instructions Activity Restrictions/Add. Instructions Additional Instructions/Restrictions: Take medication as prescribed Use drops as prescribed Follow up with your Family Doctor if no improvement or any worsening of symptoms Straight to ER if any life threatening symptoms Clinical Impressions Clinical Impression: Otitis media, Otitis externa Instructions Patient Instructions: Middle Ear Infection, DI for Otitis Externa Discharge ED Provider: Tia Beckham [facility] General Stated complaint: ear pain Mode of Arrival: Ambulatory Source of Information: Patient Limitations: No Limitations Time Seen by Provider: 02/26/23 18:27 Description of Symptoms (Recalled from Triage Doc. by RN): pt c/o bilateral ear aches with sharp pain in the L ear. x1wk HEENT Symptoms (Recalled from RN notes): Yes Resp Symptoms (Recalled from RN notes): No Skin Symptoms (Recalled from RN notes): No MS Symptoms (Recalled from RN notes): No Functional Status (Recalled from RN notes): wnl History of Present Illness Provider Complaint: Patient states that she has been having bilateral ear pain for over a week worse in the left and the left ear feels sore when she touches the outside of it and feels swolle Related Data Home Medications Medication Instructions Recorded Confirmed valacyclovir 500 mg tablet 500 mg PO DAILY Cold Sores 12/09/19 02/20/23 levothyroxine 75 mcg capsule 75 mcg PO DAILY Thyroid 01/17/22 02/20/23 omeprazole 20 mg capsule,delayed 20 mg PO DAILY 01/27/23 02/20/23 release fluoxetine 40 mg capsule 60 mg PO DAILY OCD 02/20/23 02/20/23 lisinopril 10 mg tablet 10 mg PO DAILY 02/20/23 02/20/23 Previous Rx's Medication Instructions Recorded norgestimate 0.25 mg-ethinyl 1 tab PO DAILY #84 tabs 01/27/23 estradiol 35 mcg tablet (Sprintec (28)) medroxyprogesterone 10 mg tablet 20 mg PO DAILY 7 days #14 tabs 02/20/23 (Provera) cefdinir 300 mg capsule 300 mg PO BID #20 caps 02/26/23 ofloxacin 0.3 % ear drops 10 drp otic (ear) DAILY 7 days #10 02/26/23 mL Allergies Allergy/AdvReac Type Severity Reaction Status Date / Time Penicillins [PENICILLINS] Allergy Unknown Verified 02/26/23 18:10 lactose Allergy Verified 02/26/23 18:10 mushroom Allergy Verified 02/26/23 18:10 sulfamethoxazole AdvReac diarrhea Verified 02/26/23 18:10 [From Bactrim] trimethoprim [From Bactrim] AdvReac diarrhea Verified 02/26/23 18:10 Worker's Comp Is this a Worker's Comp case?: No [facility] Disclaimer: The information contained in this section may have been updated after the patient was seen, as this information can be updated by other users. Surgical History History of placement of ear tubes Hx laparoscopic cholecystectomy Hx of dilation and curettage Hx of laparoscopy Hx of wisdom tooth extraction Family History Other Cancer Diabetes Heart attack Hyperlipidemia Hypertension Stroke Social History Smoking Status: Never s
[2023-02-26 18:56] VITALS: BP 126/85; PULSE 106; RESP 16; TEMP 36.9
== END 2023-02-26 18:58 | disposition home or self-care (01) ==
PROVIDERS: Emergency Provider Nurse Practitioner; PCP Family Medicine
DX: H66.93 Otitis media, unspecified, bilateral (principal); H60.93 Unspecified otitis externa, bilateral; E03.9 Hypothyroidism, unspecified
CPT/HCPCS: 99212; 99214; G0463

== ENCOUNTER 2023-04-08 19:49 | Emergency (ER) | payer OTHER, SELFPAY ==
[2023-04-08 19:49] VITALS: BP 155/95; PULSE 106; RESP 18; TEMP 36.7; O2SAT 96; BMI 36.3
--- NOTE | 2023-04-08 20:01 | EXP.UTC ---
Discharge Plan Disposition Patient Disposition: Home, Self-Care Condition: Good Prescriptions Prescriptions: New methylprednisolone 4 mg Tablets,Dose Pack 4 mg PO DIRECTED Qty: 21 0RF nrmmetohvdvuura-fjinfoers-NG [Bromfed DM] 2-30-10 mg/5 mL Syrup 5 ml PO Q6H PRN (Reason: Cough) Qty: 240 0RF cefdinir 300 mg capsule 300 mg PO BID Qty: 20 0RF No Action valacyclovir 500 mg tablet 500 mg PO DAILY Label Comments: TAKE 1 TABLET BY MOUTH ONCE DAILY levothyroxine 75 mcg capsule 75 mcg PO DAILY omeprazole 20 mg capsule,delayed release(DR/EC) 20 mg PO DAILY norgestimate-ethinyl estradiol [Sprintec (28)] 0.25-35 mg-mcg tablet 1 tab PO DAILY Qty: 84 4RF lisinopril 10 mg tablet 10 mg PO DAILY medroxyprogesterone [Provera] 10 mg tablet 20 mg PO DAILY 7 Days Qty: 14 0RF ofloxacin 0.3 % drops 10 drp otic (ear) DAILY 7 Days Qty: 10 0RF cefdinir 300 mg capsule 300 mg PO BID Qty: 20 0RF fluticasone propionate [Flonase Allergy Relief] 50 mcg/actuation spray,suspension 1 - 2 spray intranasal DAILY Qty: 16 0RF Rx Instructions: administer into each nostril fluoxetine 40 mg capsule 60 mg PO DAILY Referrals Follow up/Referrals: Leola Guerrero [Primary Care Provider] - See instructions Activity Restrictions/Add. Instructions Additional Instructions/Restrictions: Drink plenty of fluids. Take tylenol or ibuprofen for pain or fever. Take the medications as directed. Follow up with your regular doctor. GO TO THE ER FOR ANY WORSENING SYMPTOMS Clinical Impressions Clinical Impression: Sinusitis, Otitis media Instructions Patient Instructions: Sinusitis, DI for Sinusitis Discharge ED Provider: Jayson Clark [facility] [place] HPI General Stated complaint: sinus,sore throat,ear pain Time Seen by Provider: 04/08/23 20:00 History of Present Illness Provider Complaint: She c/o sinus congestion and bilateral ear pain for the past 5 days. Related Data Home Medications Medication Instructions Recorded Confirmed valacyclovir 500 mg tablet 500 mg PO DAILY Cold Sores 12/09/19 02/20/23 levothyroxine 75 mcg capsule 75 mcg PO DAILY Thyroid 01/17/22 02/20/23 omeprazole 20 mg capsule,delayed 20 mg PO DAILY 01/27/23 02/20/23 release fluoxetine 40 mg capsule 60 mg PO DAILY OCD 02/20/23 02/20/23 lisinopril 10 mg tablet 10 mg PO DAILY 02/20/23 02/20/23 Previous Rx's Medication Instructions Recorded norgestimate 0.25 mg-ethinyl 1 tab PO DAILY #84 tabs 01/27/23 estradiol 35 mcg tablet (Sprintec (28)) medroxyprogesterone 10 mg tablet 20 mg PO DAILY 7 days #14 tabs 02/20/23 (Provera) cefdinir 300 mg capsule 300 mg PO BID #20 caps 02/26/23 fluticasone propionate 50 1 - 2 spray intranasal DAILY #16 02/26/23 mcg/actuation nasal grams spray,suspension (Flonase Allergy Relief) ofloxacin 0.3 % ear drops 10 drp otic (ear) DAILY 7 days #10 02/26/23 mL torzwsspjfcfiuu-xrsjttjfbomipcv-OW 5 ml PO Q6H PRN Cough #240 mL 04/08/23 2 mg-30 mg-10 mg/5 mL oral syrup (Bromfed DM) cefdinir 300 mg capsule 300 mg PO BID #20 caps 04/08/23 methylprednisolone 4 mg tablets in 4 mg PO DIRECTED #21 tabs 04/08/23 a dose pack Allergies Allergy/AdvReac Type Severity Reaction Status Date / Time Penicillins [PENICILLINS] Allergy Unknown Verified 02/26/23 18:10 lactose Allergy Verified 02/26/23 18:10 mushroom Allergy Verified 02/26/23 18:10 sulfamethoxazole AdvReac diarrhea Verified 02/26/23 18:10 [From Bactrim] trimethoprim [From Bactrim] AdvReac diarrhea Verified 02/26/23 18:10 [facility] Disclaimer: The information contained in this section may have been updated after the patient was seen, as this information can be updated by other users. Surgical History History of placement of ear tubes Hx laparoscopic cholecystectomy Hx of dilation and curettage Hx of laparoscopy Hx of wi
[2023-04-08 20:09] LABS: UTC Strep Screen (Rapid) Negative (Negative)
[2023-04-08 20:16] VITALS: BP 155/95; PULSE 106; RESP 18; TEMP 36.7; O2SAT 96
== END 2023-04-08 20:19 | disposition home or self-care (01) ==
PROVIDERS: Emergency Provider Nurse Practitioner Family; PCP Family Medicine
DX: J01.90 Acute sinusitis, unspecified (principal); H66.90 Otitis media, unspecified, unspecified ear
CPT/HCPCS: 87880; 99212; 99214; G0463

== ENCOUNTER 2023-04-26 14:07 | Emergency (ER) | payer OTHER, SELFPAY ==
[2023-04-26 14:08] VITALS: BP 131/84; PULSE 100; RESP 16; TEMP 36.8; O2SAT 96; BMI 37.2
--- NOTE | 2023-04-26 14:39 | EXP.UTC ---
Discharge Plan Disposition Patient Disposition: Home, Self-Care Condition: Good Prescriptions Prescriptions: New methylprednisolone 4 mg Tablets,Dose Pack 4 mg PO DIRECTED Qty: 21 0RF guaifenesin [Mucinex] 600 mg tablet extended release 12hr 600 - 1,200 mg PO BIDP PRN (Reason: Congestion) Qty: 30 0RF azithromycin [Zithromax] 250 mg tablet 250 mg PO UD DOSE PK Qty: 6 0RF Rx Instructions: Take two (2) tablets today, then one (1) tablet days #2 thru #5 No Action valacyclovir 500 mg tablet 500 mg PO DAILY Patient Comments: TAKE 1 TABLET BY MOUTH ONCE DAILY fluoxetine 20 mg capsule 20 mg PO DAILY levothyroxine 75 mcg tablet 75 mcg PO DAILY aspirin 81 mg tablet,delayed release (DR/EC) 81 mg PO DAILY fexofenadine 180 mg tablet 180 mg PO omeprazole 20 mg capsule,delayed release(DR/EC) 20 mg PO DAILY norgestimate-ethinyl estradiol [Sprintec (28)] 0.25-35 mg-mcg tablet 1 tab PO DAILY Qty: 84 4RF lisinopril 10 mg tablet 10 mg PO DAILY fluticasone propionate [Flonase Allergy Relief] 50 mcg/actuation spray,suspension 1 - 2 spray intranasal DAILY Qty: 16 0RF Rx Instructions: administer into each nostril methylprednisolone 4 mg Tablets,Dose Pack 4 mg PO DIRECTED Qty: 21 0RF yakqzuizlujzcdo-eihiushpr-YP [Bromfed DM] 2-30-10 mg/5 mL Syrup 5 ml PO Q6H PRN (Reason: Cough) Qty: 240 0RF cefdinir 300 mg capsule 300 mg PO BID Qty: 20 0RF Referrals Follow up/Referrals: Leola Guerrero [Primary Care Provider] - See instructions Activity Restrictions/Add. Instructions Additional Instructions/Restrictions: Drink plenty of fluids. Take tylenol or ibuprofen for pain or fever. Take the medications as directed. Follow up with your regular doctor. GO TO THE ER FOR ANY WORSENING SYMPTOMS Clinical Impressions Clinical Impression: Acute bronchitis Instructions Patient Instructions: Acute Bronchitis, DI for Acute Bronchitis Discharge ED Provider: Jayson Clark [facility] General Stated complaint: cough Mode of Arrival: Ambulatory Source of Information: Patient Limitations: No Limitations Time Seen by Provider: 04/26/23 14:37 Description of Symptoms (Recalled from Triage Doc. by RN): Patient reports cough, headache and wheezing. HEENT Symptoms (Recalled from RN notes): Yes Resp Symptoms (Recalled from RN notes): No Skin Symptoms (Recalled from RN notes): No MS Symptoms (Recalled from RN notes): No Functional Status (Recalled from RN notes): wnl History of Present Illness Provider Complaint: She states that she has had cough, chest congestion, and sinus congestion for the past 4 days. Related Data Home Medications Medication Instructions Recorded Confirmed valacyclovir 500 mg tablet 500 mg PO DAILY Cold Sores 12/09/19 04/09/23 omeprazole 20 mg capsule,delayed 20 mg PO DAILY 01/27/23 04/09/23 release lisinopril 10 mg tablet 10 mg PO DAILY 02/20/23 04/09/23 aspirin 81 mg tablet,delayed 81 mg PO DAILY 04/09/23 04/09/23 release fexofenadine 180 mg tablet 180 mg PO 04/09/23 04/09/23 fluoxetine 20 mg capsule 20 mg PO DAILY 04/09/23 04/09/23 levothyroxine 75 mcg tablet 75 mcg PO DAILY 04/09/23 04/09/23 Previous Rx's Medication Instructions Recorded norgestimate 0.25 mg-ethinyl 1 tab PO DAILY #84 tabs 01/27/23 estradiol 35 mcg tablet (Sprintec (28)) fluticasone propionate 50 1 - 2 spray intranasal DAILY #16 02/26/23 mcg/actuation nasal grams spray,suspension (Flonase Allergy Relief) htndkszztfwwucd-itgycrchwzxstdg-UK 5 ml PO Q6H PRN Cough #240 mL 04/08/23 2 mg-30 mg-10 mg/5 mL oral syrup (Bromfed DM) cefdinir 300 mg capsule 300 mg PO BID #20 caps 04/08/23 methylprednisolone 4 mg tablets in 4 mg PO DIRECTED #21 tabs 04/08/23 a dose pack azithromycin 250 mg tablet 250 mg PO UD DOSE PK #6 tabs 04/26/23 (Zithromax) guaifenesin 600 mg tablet, 600 - 1,200 mg PO BIDP PRN 04/26/23 ex
[2023-04-26 14:58] VITALS: BP 131/84; PULSE 100; RESP 16; TEMP 36.8; O2SAT 96
== END 2023-04-26 14:59 | disposition home or self-care (01) ==
PROVIDERS: Emergency Provider Nurse Practitioner Family; PCP Family Medicine
DX: J20.9 Acute bronchitis, unspecified (principal)
CPT/HCPCS: 99212; 99214; G0463

== ENCOUNTER → 2023-05-08 16:43 | Outpatient (CLI) | payer OTHER, SELFPAY ==
[2023-05-08 17:52] LABS: Amphetamine/Metha Screen,Urine Negative ng/ml (<1000)
[2023-05-08 17:53] LABS: Barbiturates Screen,Urine Negative ng/ml (<200); Benzodiazepines Screen,Urine Negative ng/ml (<200)
[2023-05-08 17:54] LABS: Cannabinoid Screen,Urine Negative ng/ml (<50)
[2023-05-08 17:55] LABS: Cocaine Screen,Urine Negative ng/ml (<300); Methadone Screen,Urine Negative ng/ml (<300)
[2023-05-08 17:56] LABS: Opiate Screen,Urine Negative ng/ml (<300)
[2023-05-08 17:57] LABS: Phencyclidine Screen,Urine Negative ng/ml (<25)
== END ==
PROVIDERS: PCP Family Medicine; Visit Provider Psychiatry & Neurology Psychiatry
DX: Z01.812 Encounter for preprocedural laboratory examination (principal); Z98.84 Bariatric surgery status
CPT/HCPCS: 80305

== ENCOUNTER → 2023-05-15 11:31 | Outpatient (POV) | payer BC, OTHER, SELFPAY | PROVIDERS: Visit Provider Specialist/Technologist | DX: Z00.00 Encounter for general adult medical examination without abnormal findings (principal) ==

== ENCOUNTER → 2023-05-19 10:45 | Outpatient (CLI) | payer BC, OTHER, SELFPAY ==
--- NOTE | 2023-05-19 10:47 | CA_ITS ---
APPROVED REPORT EXAM: Comprehensive 2D, Doppler, and color-flow Echocardiogram Volcanology Teacher: Maddie Robison RVT Ht: 5 ft 3 in Wt: 214lbs BSA: 1.99 BP: 121/78 mmHg Indications: HTN,PRE-OP GASTRIC SLEEVE,SOA 2D Dimensions LVOT 2.28 cm (M/F) 1.5-2.5 LA Volume 41.30 mL LA Volume Index 20.75 mL/m2 (M/F) 16-34 M-Mode Dimensions RVDd 2.46 cm (0.9-2.6) LA Diam 3.28 cm (1.9-4.0) LVDd 4.18 cm (3.5-5.7) Ao Diam 2.91 cm (2.0-3.7) LVDs 2.61 cm (3.5-5.7) IVSd 1.07 cm (0.6-1.1) PWd 0.64 cm (0.6-1.1) EF (Teich) 68.10% FS 37.60% EDV (Teich) 77.70 mL TAPSE 2.50 (<1.7) ESV (Teich) 24.80 mL LV Diastology E Decel Time 150.00 (160-240 msec) E/A Ratio 1.3 MED E' 12.60 (< 7 cm/sec) E'/MED E' Ratio 6.20 (>14) LAT E' 13.00 (<10 cm/sec) E/LAT E' Ratio 6.01 (>14) Aortic Valve AO Peak GR. 3.80 mmHg Mitral Valve MV E Max Ben. 78.00 (40-130 cm/s) MV A Velocity 62.00 (40-130 cm/s) E/A Ratio 1.27 MV Decel. Time 150.00 (160-240 ms) MV PHT 44.00 ms Pulmonary Valve PV Peak Velocity 99.00 (50-150 cm/s) Tricuspid Valve TR P. Velocity 231.00 cm/s RAP Estimate 10.00 mmHg RVSP 31.40 mmHg Left Ventricle The left ventricle is normal size. The left ventricular systolic function is normal. The left ventricular ejection fraction is within the normal range. There is normal left ventricular wall thickness. The endocardial borders in the LV apex is not well visualized, cannot rule out possible apical aneurysm or increased LV apical thickness. The left ventricular diastolic function is normal. LVEF is 60%. Right Ventricle The right ventricle is normal size. The right ventricular systolic function is normal. Atria The left atrium size is normal. The right atrium size is normal. There is no Doppler evidence of interatrial shunt. Aortic Valve The aortic valve opens well. There is no aortic valvular stenosis. Trace aortic regurgitation. Mitral Valve The mitral valve is normal in structure. No evidence of mitral valve stenosis. Trace mitral regurgitation. Tricuspid Valve The tricuspid valve leaflets are thin and pliable. Trace tricuspid regurgitation. There is insufficient TR jet to estimate RVSP. Pulmonic Valve The pulmonary valve is normal in structure. Trace pulmonic regurgitation. Great Vessels The aortic root is normal in size. The ascending aorta is normal in size. IVC is normal in size and collapses >50% with inspiration. Pericardium There is no pericardial effusion. Other Information Study Quality: Technically Difficult Conclusion This is a technically difficult study due to poor accoustic window. Normal biventricular systolic function. The endocardial borders in the LV apex is not well visualized, cannot rule out possible apical aneurysm or increased LV apical thickness. No significant valvular disease. Electronically signed by : Macie Almazan, 05/19/2023 22:15:23
== END ==
LOC: RT 10:46
PROVIDERS: PCP Family Medicine; Visit Provider Physician Assistant
DX: R06.02 Shortness of breath (principal); I10 Essential (primary) hypertension
CPT/HCPCS: 93306

== ENCOUNTER 2024-01-31 14:57 | Emergency (ER) | payer BC, SELFPAY ==
[2024-01-31 15:30] VITALS: BP 111/78; PULSE 79; RESP 18; TEMP 36.7; O2SAT 97; BMI 26.2
--- NOTE | 2024-01-31 15:35 | EXP.UTC ---
Discharge Plan Disposition Patient Disposition: Home, Self-Care Condition: Good Prescriptions Prescriptions: New azithromycin [Zithromax] 250 mg tablet 250 mg PO UD DOSE PK Qty: 6 0RF Rx Instructions: Take two (2) tablets today, then one (1) tablet days #2 thru #5 methylprednisolone 4 mg Tablets,Dose Pack 4 mg PO DIRECTED 6 Days Qty: 21 0RF Rx Instructions: Take 1 pack as directed for 6 days [id number] [Bromfed DM] 2-30-10 mg/5 mL Syrup 5 ml PO Q6H PRN (Reason: Cough) Qty: 240 0RF No Action valacyclovir 500 mg tablet 500 mg PO DAILY Patient Comments: TAKE 1 TABLET BY MOUTH ONCE DAILY levothyroxine 75 mcg tablet 75 mcg PO DAILY lamotrigine 25 mg tablet 25 mg PO BID polyethylene glycol 3350 17 gram/dose powder 17 g PO NEEDED PRN (Reason: constipation ) naproxen 500 mg tablet 500 mg PO BID PRN (Reason: pelvic pain) Qty: 30 1RF Yue 24 Fe 1 mg-20 mcg (24)/75 mg (4) tablet See Rx Instructions .ROUTE .COMPLEX Qty: 84 2RF Dose Instruction: TAKE ONE TABLET BY MOUTH ONCE A DAY Rx Instructions: TAKE ONE TABLET BY MOUTH ONCE A DAY omeprazole 20 mg capsule,delayed release(DR/EC) 20 mg PO DAILY dextroamphetamine-amphetamine 5 mg tablet See Rx Instructions .ROUTE .COMPLEX Rx Instructions: see rx Referrals Follow up/Referrals: Leola Guerrero [Primary Care Provider] - See instructions Activity Restrictions/Add. Instructions Additional Instructions/Restrictions: Drink plenty of fluids. Take tylenol or ibuprofen for pain or fever. Take the medications as directed. Follow up with your regular doctor. GO TO THE ER FOR ANY WORSENING SYMPTOMS Clinical Impressions Clinical Impression: Otitis media Instructions Patient Instructions: Middle Ear Infection, Methylprednisolone, Azithromycin Discharge ED Provider: Jayson Clark [facility] [place] General Stated complaint: right/left pain pressure Time Seen by Provider: 01/31/24 15:35 History of Present Illness Provider Complaint: She states that she has had bilateral ear pain, sinus congestion, and a scratchy throat for the past 5 days. Related Data Home Medications Medication Instructions Recorded Confirmed valacyclovir 500 mg tablet 500 mg PO DAILY Cold Sores 12/09/19 01/31/24 levothyroxine 75 mcg tablet 75 mcg PO DAILY 04/09/23 01/31/24 lamotrigine 25 mg tablet 25 mg PO BID 06/24/23 01/31/24 polyethylene glycol 3350 17 17 g PO NEEDED PRN constipation 10/10/23 01/31/24 gram/dose oral powder dextroamphetamine-amphetamine 5 mg See Rx Instructions .Route .COMPLEX 01/31/24 01/31/24 tablet omeprazole 20 mg capsule,delayed 20 mg PO DAILY 01/31/24 01/31/24 release Previous Rx's Medication Instructions Recorded naproxen 500 mg tablet 500 mg PO BID PRN pelvic pain #30 10/10/23 tabs norethindrone 1 mg-ethinyl See Rx Instructions .Route 11/03/23 estradiol 20 mcg (24)-iron 75 mg .COMPLEX #84 tabs (4) tablet (Yue 24 Fe) azithromycin 250 mg tablet 250 mg PO UD DOSE PK #6 tabs 01/31/24 (Zithromax) aimzfwffulkylrv-qoffqjykxqhcuxi-NW 5 ml PO Q6H PRN Cough #240 mL 01/31/24 2 mg-30 mg-10 mg/5 mL oral syrup (Bromfed DM) methylprednisolone 4 mg tablets in 4 mg PO DIRECTED 6 days #21 tabs 01/31/24 a dose pack Allergies Allergy/AdvReac Type Severity Reaction Status Date / Time Penicillins [PENICILLINS] Allergy Unknown Verified 01/31/24 15:44 lactose Allergy Verified 01/31/24 15:44 mushroom Allergy Verified 01/31/24 15:44 ANA Inhibitors AdvReac Mild Verified 01/31/24 15:44 sulfamethoxazole AdvReac diarrhea Verified 01/31/24 15:44 [From Bactrim] trimethoprim [From Bactrim] AdvReac diarrhea Verified 01/31/24 15:44 PFSH PFSH Disclaimer: The information contained in this section may have been updated after the patient was seen, as this information can be updated by other users. Medical History (Updated 01/31/24 @ 16:19 by Jayson Clark APRN) Vaginismus Dyspareunia Dysmenorrhea Phantosmia Abnormal uterine bleeding Chronic pelvic pain in female HTN (hypertension) Deviated septum Chronic Ear Infection Hypertrophy of tonsil Tympanosclerosis Hypothyroidism Endometriosis Surgical History History of gastric bypass Hx of wisdom tooth extraction History of placement of ear tubes Hx of laparoscopy Hx of dilation and curettage Hx laparoscopic cholecystectomy Family History Other Cancer Diabetes Heart attack Hyperlipidemia Hypertension Stroke Social History Smoking Status: Never smoker second hand exposure: Yes alcohol intake: never substance use type: denies use current occupational status: other Travel in the last 8 weeks: None household members: spouse and family housing: house current occupational exposures/hazards: No caffeine: No ROS Obtained: Yes All systems reviewed & no additional complaints except as documented Constitutional Constitutional: Denies chills, Reports fever(s) and Reports poor appetite Eyes Eyes: Denies eye discharge ENT Ears, Nose, Mouth, and Throat: Denies ear discharge, Reports otalgia, Denies hearing loss, Denies sinus pain and Reports sore throat Cardiovascular Cardiovascular: Denies chest pain and Denies dyspnea Respiratory Respiratory: Denies chest congestion, Reports cough and Denies dyspnea Gastrointestinal Gastrointestingal: Denies abdominal pain, diarrhea, nausea or vomiting Musculoskeletal Musculoskeletal: Denies arthralgias Integumentary/Breasts Skin/Breast: Denies rash Physical Exam General General appearance: alert and in no apparent distress Head Head exam: atraumatic, normocephalic and normal inspection Eye Eye exam: Present normal appearance; Absent PERRL or EOMI ENT ENT exam: Present mucous membranes moist and normal external ear exam Expanded ENT Exam TM/Canal exam: Bilateral TM: erythema, bulging and effusion Nose exam: Absent sinus tenderness Nasal speculum exam: Bilateral: normal Mouth exam: Present normal external inspection and other; Absent drooling Teeth exam: Present normal inspection Throat exam: Present tonsillar erythema and tonsillomegaly Neck Neck exam: Present normal inspection, full ROM and trachea midline; Absent tenderness, meningismus or lymphadenopathy Chest Chest inspection: Present normal inspection and symmetric chest wall rise; Absent tenderness Respiratory Respiratory exam: Present normal lung sounds bilaterally; Absent respiratory distress, wheezes or stridor Cardiovascular Cardiovascular exam: Present regular rate, normal rhythm and normal heart sounds; Absent tachycardia or irregular rhythm Abdominal Exam Abdominal exam: Present soft and normal bowel sounds; Absent distention, tenderness, guarding, rebound or rigidity Extremities Exam Extremities exam: Present normal inspection and normal capillary refill; Absent tenderness, joint swelling or calf tenderness Back Exam Back exam: Present normal inspection and full ROM; Absent tenderness, CVA tenderness (R) or CVA tenderness (L) Neurological Exam Neurological exam: Present alert, oriented X3, CN II-XII intact, normal gait and reflexes normal; Absent motor sensory deficit Psychiatric Psychiatric exam: Present normal affect and normal mood Skin Skin exam: Present warm, dry, intact and normal color Lymphatic Lymphatic Findings: no adenopathy Medical Decision Making Medical Records Medical records reviewed: No I reviewed the patient's medical records. Phil Inquiry Pt receiving controlled substance: No Lab Data Lab results reviewed: Yes I reviewed the patient's lab results.
[2024-01-31 16:23] VITALS: BP 111/78; PULSE 79; RESP 18; TEMP 36.7; O2SAT 97
== END 2024-01-31 16:23 | disposition home or self-care (01) ==
PROVIDERS: Emergency Provider Nurse Practitioner Family; PCP Family Medicine
DX: H66.93 Otitis media, unspecified, bilateral (principal); R09.81 Nasal congestion; R07.0 Pain in throat; E03.9 Hypothyroidism, unspecified; I10 Essential (primary) hypertension
CPT/HCPCS: 99212; 99214; G0463

== ENCOUNTER 2024-04-05 18:36 | Emergency (ER) | payer BC, SELFPAY ==
[2024-04-05 18:50] VITALS: BP 122/93; PULSE 92; RESP 18; TEMP 36.8; O2SAT 96; BMI 24.5
--- NOTE | 2024-04-05 19:02 | ED_ITS ---
Discharge Plan Disposition Patient Disposition: Home, Self-Care Condition: Good Prescriptions Prescriptions: New fluticasone propionate [Flonase Allergy Relief] 50 mcg/actuation spray,suspension 1 spray intranasal DAILY Qty: 16 0RF Rx Instructions: administer into each nostril twice a day for a week then once daily. No Action valacyclovir 500 mg tablet 500 mg PO DAILY Patient Comments: TAKE 1 TABLET BY MOUTH ONCE DAILY levothyroxine 75 mcg tablet 75 mcg PO DAILY lamotrigine 100 mg tablet 100 mg PO DAILY propranolol 10 mg tablet 10 mg PO BID PRN famotidine 10 mg tablet 10 mg PO DAILY Yue 24 Fe 1 mg-20 mcg (24)/75 mg (4) tablet See Rx Instructions .ROUTE .COMPLEX Qty: 84 2RF Dose Instruction: TAKE ONE TABLET BY MOUTH ONCE A DAY Rx Instructions: TAKE ONE TABLET BY MOUTH ONCE A DAY omeprazole 20 mg capsule,delayed release(DR/EC) 20 mg PO BID sertraline 25 mg tablet 25 mg PO DAILY dextroamphetamine-amphetamine 5 mg tablet 5 mg PO BID Patient Comments: TAKE 1 TABLET BY MOUTH TWICE DAILY Referrals Follow up/Referrals: Leola Guerrero [Primary Care Provider] - See instructions Activity Restrictions/Add. Instructions Additional Instructions/Restrictions: Take medication as prescribed. Increase fluids and rest. If symptom persist or worsen, go to PCP. Clinical Impressions Clinical Impression: Upper respiratory infection, viral Eustachian tube dysfunction Qualifiers: Laterality: bilateral Qualified Code(s): H69.93 - Unspecified Eustachian tube disorder, bilateral Instructions Patient Instructions: DI for Eustachian Tube Dysfunction-Adult, DI for Viral Upper Respiratory Infection -- Adult Discharge ED Provider: Liliane Jacob [facility] General Stated complaint: sore throat, runny nose Mode of Arrival: Ambulatory Source of Information: Patient Limitations: No Limitations Time Seen by Provider: 04/05/24 18:52 Description of Symptoms (Recalled from Triage Doc. by RN): Pt's symptoms are sore throat, HURD, bilateral ear pain, and sinus pressure. HEENT Symptoms (Recalled from RN notes): Yes Resp Symptoms (Recalled from RN notes): No Skin Symptoms (Recalled from RN notes): No MS Symptoms (Recalled from RN notes): No Functional Status (Recalled from RN notes): n/a History of Present Illness Provider Complaint: Pt reports bilateral ear pain, sore throat, runny nose, and sinus pressure. She states that she takes Zyrtec daily. Related Data Home Medications Medication Instructions Recorded Confirmed valacyclovir 500 mg tablet 500 mg PO DAILY Cold Sores 12/09/19 04/05/24 levothyroxine 75 mcg tablet 75 mcg PO DAILY 04/09/23 04/05/24 lamotrigine 100 mg tablet 100 mg PO DAILY 02/11/24 04/05/24 omeprazole 20 mg capsule,delayed 20 mg PO BID 02/11/24 04/05/24 release propranolol 10 mg tablet 10 mg PO BID PRN 02/11/24 02/11/24 famotidine 10 mg tablet 10 mg PO DAILY 03/10/24 04/05/24 dextroamphetamine-amphetamine 5 mg 5 mg PO BID 04/05/24 04/05/24 tablet sertraline 25 mg tablet 25 mg PO DAILY 04/05/24 04/05/24 Previous Rx's Medication Instructions Recorded norethindrone 1 mg-ethinyl See Rx Instructions .Route 11/03/23 estradiol 20 mcg ()-iron 75 mg .COMPLEX #84 tabs (4) tablet ([place] ) fluticasone propionate 50 1 spray intranasal DAILY #16 grams 04/05/24 mcg/actuation nasal spray,suspension (Flonase Allergy Relief) Allergies Allergy/AdvReac Type Severity Reaction Status Date / Time Penicillins [PENICILLINS] Allergy Unknown Verified 04/05/24 18:57 lactose Allergy Verified 04/05/24 18:57 mushroom Allergy Verified 04/05/24 18:57 ANA Inhibitors AdvReac Mild Verified 04/05/24 18:57 sulfamethoxazole AdvReac diarrhea Verified 04/05/24 18:57 [From Bactrim] trimethoprim [From Bactrim] AdvReac diarrhea Verified 04/05/24 18:57 Worker's Comp Is this a Worker's Comp case?: No [facility] Disclaimer: The information contained in this section may have been updated after the patient was seen, as this information can be updated by other users. Medical History (Updated 04/05/24 @ 19:07 by Lliiane Jacob APRN) Bicornuate uterus Vaginismus Dyspareunia Dysmenorrhea Phantosmia Abnormal uterine bleeding Chronic pelvic pain in female HTN (hypertension) Deviated septum Chronic Ear Infection Hypertrophy of tonsil Tympanosclerosis Hypothyroidism Endometriosis Surgical History H/O gastric sleeve History of gastric bypass Hx of wisdom tooth extraction History of placement of ear tubes Hx of laparoscopy Hx of dilation and curettage Hx laparoscopic cholecystectomy Family History Other Cancer Diabetes Heart attack Hyperlipidemia Hypertension Stroke Social History Smoking Status: Never smoker second hand exposure: Yes alcohol intake: never substance use type: denies use current occupational status: other Travel in the last 8 weeks: None household members: spouse and family housing: house current occupational exposures/hazards: No caffeine: No ROS Obtained: Yes All systems reviewed & no additional complaints except as documented Constitutional Constitutional: Reports system reviewed and no additional complaints, except as documented Eyes Eyes: Reports system reviewed and no additional complaints, except as documented ENT Ears, Nose, Mouth, and Throat: Reports system reviewed and no additional complai nts, except as documented, Reports otalgia, Reports nasal congestion and Reports nasal discharge Cardiovascular Cardiovascular: Reports system reviewed and no additional complaints, except as documented Respiratory Respiratory: Reports system reviewed and no additional complaints, except as documented and Reports cough Gastrointestinal Gastrointestingal: Reports system reviewed and no additional complaints, except as documented Genitourinary Female Genitourinary: Reports system reviewed and no additional complaints, except as documented Musculoskeletal Musculoskeletal: Reports system reviewed and no additional complaints, except as documented Integumentary/Breasts Skin/Breast: Reports system reviewed and no additional complaints, except as documented Neurologic Neurologic: Reports system reviewed and no additional complaints, except as documented Endocrine Endocrine: Reports system reviewed and no additional complaints, except as documented Hematologic/Lymphatic Henatologic/Lymphatic: Reports system reviewed and no additional complaints, except as documented Allergic/Immunologic Allergic/Immunologic: Reports system reviewed and no additional complaints, except as documented Physical Exam General General appearance: alert and in no apparent distress Head Head exam: atraumatic and normocephalic Eye Eye exam: Present normal appearance ENT ENT exam: Present mucous membranes moist Expanded ENT Exam External ear exam: Present normal external inspection TM/Canal exam: Bilateral TM: bulging and effusion (clear bubbles) Nasal speculum exam: Bilateral: other (clear drainage, edematous mucosa) Mouth exam: Present normal external inspection Teeth exam: Present normal inspection Throat exam: Present tonsillar erythema Comment: post nasal drainage Neck Neck exam: Present normal inspection; Absent lymphadenopathy Chest Chest inspection: Present normal inspection and symmetric chest wall rise Respiratory Respiratory exam: Present normal lung sounds bilaterally Cardiovascular Cardiovascular exam: Present regular rate and normal rhythm Abdominal Exam Abdominal exam: Present soft and normal bowel sounds Extremities Exam Extremities exam: Present normal inspection Back Exam Back exam: Present normal inspection Neurological Exam Neurological exam: Present alert and oriented X3 Psychiatric Psychiatric exam: Present normal affect and normal mood Skin Skin exam: Present warm, dry and intact Lymphatic Lymphatic Findings: no adenopathy Medical Decision Making Phil Inquiry Pt receiving controlled substance: No Phil was queried for this patient: No Vital Signs: 04/05/24 18:50 Temperature 98.3 F Temperature Source Oral Pulse Rate [Right Radial] 92 H Respiratory Rate 18 Blood Pressure [Right Arm] 122/93 H Blood Pressure Mean [Right Arm] 102 Blood Pressure Source [Right Arm] Automatic Cuff Blood Pressure Position [Right Arm] Sitting 02 Sat by Pulse Oximetry 96 Oxygen Delivery Method Room Air
[2024-04-05 19:06] LABS: UTC Strep Screen (Rapid) Negative (Negative)
[2024-04-05 19:10] VITALS: BP 122/93; PULSE 92; RESP 18; TEMP 36.8; O2SAT 96
== END 2024-04-05 19:10 | disposition home or self-care (01) ==
PROVIDERS: Emergency Provider Nurse Practitioner Family; PCP Family Medicine
DX: H69.93 Unspecified Eustachian tube disorder, bilateral (principal); R07.0 Pain in throat; J06.9 Acute upper respiratory infection, unspecified; B34.9 Viral infection, unspecified
CPT/HCPCS: 87880; 99212; 99214; G0463

== ENCOUNTER 2024-05-19 13:13 | Outpatient (CLI) | payer BC, SELFPAY ==
[2024-05-19 15:49] LABS: Opiate Screen,Urine Negative ng/ml (<300)
[2024-05-19 15:50] LABS: Phencyclidine Screen,Urine Negative ng/ml (<25)
[2024-05-19 15:51] LABS: Amphetamine/Metha Screen,Urine Negative ng/ml (<1000)
[2024-05-19 15:52] LABS: Barbiturates Screen,Urine Negative ng/ml (<200); Benzodiazepines Screen,Urine Negative ng/ml (<200)
[2024-05-19 15:55] LABS: Cannabinoid Screen,Urine Negative ng/ml (<50)
[2024-05-19 15:56] LABS: Cocaine Screen,Urine Negative ng/ml (<300); Methadone Screen,Urine Negative ng/ml (<300)
== END 2024-05-19 23:59 | disposition home or self-care (01) ==
LOC: LAB 13:15
PROVIDERS: PCP Family Medicine; Visit Provider Psychiatry & Neurology Psychiatry
DX: F90.0 Attention-deficit hyperactivity disorder, predominantly inattentive type (principal)
CPT/HCPCS: 80307

== ENCOUNTER 2024-08-17 15:36 | Outpatient (CLI) | payer BC, SELFPAY ==
[2024-08-18 10:16] LABS: Estradiol 19.3 pg/mL (.); LH 4.1 mIU/mL (.); Prolactin 9.3 ng/mL (4.8-33.4); Testosterone,Total 7 ng/dL (13-71)
[2024-08-19 23:47] LABS: Anti Mullerian Hormone (AMH) 8.06 ng/mL (.)
[2024-08-24 14:31] LABS: Miscellaneous Test SCANNED IMAGE
== END 2024-08-17 23:59 | disposition home or self-care (01) ==
LOC: LAB 15:36
PROVIDERS: PCP Obstetrics & Gynecology; Visit Provider Obstetrics & Gynecology
DX: N91.1 Secondary amenorrhea (principal)
CPT/HCPCS: 36415; 82397; 82670; 83001; 83002; 84146; 84403

== ENCOUNTER 2024-09-01 09:58 | Outpatient (CLI) | payer BC, SELFPAY ==
--- NOTE | 2024-09-01 10:00 | US_ITS ---
PROCEDURE: US TRANSVAGINAL CLINICAL INDICATION: pelvic ultrasound for secondary amenorrhea COMPARISON: US US OB TRANSVAGINAL from 01/12/2022 US US PELVIC from 02/08/2022 FINDINGS: Transvaginal sonographic images of the pelvis were obtained. UTERUS: 7.2cm x 5.3cmx 3.4cm anteverted with a combined endometrial thickness of 2.1mm. The endometrium appears trilaminar. The uterus has a bicornuate appearance. There is a small amount of fluid within the cervix. LEFT OVARY: 3.5 cmx2.0cmx1.8cm with a volume of 6.4ml. There are several small peripheral follicles. RIGHT OVARY: 3.8 cmx 2.8 cmx2.1cm with a volume of 11.9ml. There are multiple small peripheral follicles giving the ovary a polycystic appearance. Both ovaries are seen and appear polycystic. Doppler flow to both ovaries are seen. There is no fluid in the cul-de-sac. IMPRESSION: 1. Anteverted uterus normal in size and BICORNUATE in shape. The endometrium is thin and trilaminar. 2. There is a small amount of fluid within the cervix. 3. Both ovaries are seen and appear polycystic with multiple small peripheral follicles. 4. No fluid in the cul-de-sac. Dictated by: Mamadou Perez MD 09/01/2024 14:03 Mamadou Perez MD in OV 09/01/2024 14:03
[2024-09-01 12:34] LABS: Thyroid Stimulating Hormone 0.03 uIU/mL (0.465-4.68)
== END 2024-09-01 23:59 | disposition home or self-care (01) ==
PROVIDERS: PCP Family Medicine; Visit Provider Obstetrics & Gynecology
DX: N91.1 Secondary amenorrhea (principal)
CPT/HCPCS: 36415; 76830; 84443

== ENCOUNTER 2024-09-02 18:14 | Emergency (ER) | payer BC, SELFPAY ==
[2024-09-02 19:45] VITALS: BP 120/81; PULSE 74; RESP 18; TEMP 36.8; O2SAT 97; BMI 24.5
--- NOTE | 2024-09-02 19:54 | EXP.UTC ---
Discharge Plan Disposition Patient Disposition: Home, Self-Care Condition: Good Prescriptions Prescriptions: New azithromycin [Zithromax] 250 mg tablet 250 mg PO UD DOSE PK Qty: 6 0RF Rx Instructions: Take two (2) tablets today, then one (1) tablet days #2 thru #5 nitrofurantoin monohyd/m-cryst [Macrobid] 100 mg Capsule 100 mg PO BID Qty: 10 0RF Rx Instructions: must administer with a meal/food No Action valacyclovir 500 mg tablet 500 mg PO DAILY Patient Comments: TAKE 1 TABLET BY MOUTH ONCE DAILY levothyroxine 75 mcg tablet 75 mcg PO DAILY naproxen 500 mg tablet 500 mg PO PRN lamotrigine 100 mg tablet 100 mg PO DAILY famotidine 10 mg tablet 10 mg PO DAILY dextroamphetamine-amphetamine 5 mg tablet 5 mg PO BID Patient Comments: TAKE 1 TABLET BY MOUTH TWICE DAILY Referrals Follow up/Referrals: Leola Guerrero [Primary Care Provider] - See instructions Activity Restrictions/Add. Instructions Additional Instructions/Restrictions: Drink plenty of fluids. Take tylenol or ibuprofen for pain or fever. Take the medications as directed. Follow up with your regular doctor. GO TO THE ER FOR ANY WORSENING SYMPTOMS Clinical Impressions Clinical Impression: Otitis media Instructions Patient Instructions: Middle Ear Infection, Methylprednisolone, Azithromycin Print Language Print Language: French Discharge ED Provider: Jayson Clark [facility] General Stated complaint: ear pain Time Seen by Provider: 09/02/24 19:53 Related Data Home Medications ?Medication ?Instructions ?Recorded ?Confirmed valacyclovir 500 mg tablet 500 mg PO DAILY Cold Sores 12/09/19 09/02/24 levothyroxine 75 mcg tablet 75 mcg PO DAILY 04/09/23 09/02/24 lamotrigine 100 mg tablet 100 mg PO DAILY 02/11/24 09/02/24 famotidine 10 mg tablet 10 mg PO DAILY 03/10/24 09/02/24 dextroamphetamine-amphetamine 5 mg 5 mg PO BID 04/05/24 09/02/24 tablet naproxen 500 mg tablet 500 mg PO PRN 08/17/24 08/17/24 Previous Rx's ?Medication ?Instructions ?Recorded azithromycin 250 mg tablet 250 mg PO UD DOSE PK #6 tabs 09/02/24 (Zithromax) nitrofurantoin 100 mg PO BID #10 caps 09/02/24 monohydrate/macrocrystals 100 mg capsule (Macrobid) Allergies Allergy/AdvReac Type Severity Reaction Status Date / Time adhesive Allergy Mild swelling Verified 08/17/24 14:46 Penicillins (PENICILLINS) Allergy Unknown Verified 08/17/24 14:39 lactose Allergy Verified 08/17/24 14:39 mushroom Allergy Verified 08/17/24 14:39 ANA Inhibitors AdvReac Mild Verified 08/17/24 14:39 sulfamethoxazole (From AdvReac diarrhea Verified 08/17/24 14:39 Bactrim) trimethoprim (From Bactrim) AdvReac diarrhea Verified 08/17/24 14:39 PFSH PFS Disclaimer: The information contained in this section may have been updated after the patient was seen, as this information can be updated by other users. Medical History (Updated 09/02/24 @ 20:18 by Jayson Clark APRN) Secondary amenorrhea Bicornuate uterus Vaginismus Dyspareunia Dysmenorrhea Phantosmia Abnormal uterine bleeding Chronic pelvic pain in female HTN (hypertension) Deviated septum Chronic Ear Infection Hypertrophy of tonsil Tympanosclerosis Hypothyroidism Endometriosis Surgical History H/O gastric sleeve History of gastric bypass Hx of wisdom tooth extraction History of placement of ear tubes Hx of laparoscopy Hx of dilation and curettage Hx laparoscopic cholecystectomy Family History Other Cancer Diabetes Heart attack Hyperlipidemia Hypertension Stroke Social History Smoking Status: Never smoker second hand exposure: Yes alcohol intake: never substance use type: denies use current occupational status: other household members: spouse and family housing: house current occupational exposures/hazards: No caffeine: No ROS Obtained: Yes All systems reviewed & no additional complaints except as documented Constitutional Constitutional: Denies chills, Reports fever(s) and Reports poor appetite Eyes Eyes: Denies eye discharge ENT Ears, Nose, Mouth, and Throat: Denies ear discharge, Reports otalgia, Denies hearing loss, Denies sinus pain and Reports sore throat Cardiovascular Cardiovascular: Denies chest pain and Denies dyspnea Respiratory Respiratory: Denies chest congestion, Reports cough and Denies dyspnea Gastrointestinal Gastrointestingal: Denies abdominal pain, diarrhea, nausea or vomiting Musculoskeletal Musculoskeletal: Denies arthralgias Integumentary/Breasts Skin/Breast: Denies rash Physical Exam General General appearance: alert and in no apparent distress Head Head exam: atraumatic, normocephalic and normal inspection Eye Eye exam: Present normal appearance; Absent PERRL or EOMI ENT ENT exam: Present mucous membranes moist and normal external ear exam Expanded ENT Exam TM/Canal exam: Bilateral TM: erythema, bulging and effusion Nose exam: Absent sinus tenderness Nasal speculum exam: Bilateral: normal Mouth exam: Present normal external inspection and other; Absent drooling Teeth exam: Present normal inspection Throat exam: Present tonsillar erythema and tonsillomegaly Neck Neck exam: Present normal inspection, full ROM and trachea midline; Absent tenderness, meningismus or lymphadenopathy Chest Chest inspection: Present normal inspection and symmetric chest wall rise; Absent tenderness Respiratory Respiratory exam: Present normal lung sounds bilaterally; Absent respiratory distress, wheezes or stridor Cardiovascular Cardiovascular exam: Present regular rate, normal rhythm and normal heart sounds; Absent tachycardia or irregular rhythm Abdominal Exam Abdominal exam: Present soft and normal bowel sounds; Absent distention, tenderness, guarding, rebound or rigidity Extremities Exam Extremities exam: Present normal inspection and normal capillary refill; Absent tenderness, joint swelling or calf tenderness Back Exam Back exam: Present normal inspection and full ROM; Absent tenderness, CVA tenderness (R) or CVA tenderness (L) Neurological Exam Neurological exam: Present alert, oriented X3, CN II-XII intact, normal gait and reflexes normal; Absent motor sensory deficit Psychiatric Psychiatric exam: Present normal affect and normal mood Skin Skin exam: Present warm, dry, intact and normal color Lymphatic Lymphatic Findings: no adenopathy Medical Decision Making Medical Records Medical records reviewed: No I reviewed the patient's medical records. Screening: Per USPSTF and CDC recommendations, given the prevalence of disease in our region, it is our hospital?s policy to screen for HIV and viral Hepatitis for all patients aged 18 and over and those with ongoing risk factors. Phil Inquiry Pt receiving controlled substance: No
[2024-09-02] MEDS: AZITHROMYCIN 250MG TABLET 500 MG PO (20:10)
[2024-09-02 20:20] VITALS: BP 120/81; PULSE 74; RESP 18; TEMP 36.8; O2SAT 97
== END 2024-09-02 20:23 | disposition home or self-care (01) ==
PROVIDERS: Emergency Provider Nurse Practitioner Family; PCP Family Medicine
DX: H66.93 Otitis media, unspecified, bilateral (principal)
CPT/HCPCS: 99213; G0381

== ENCOUNTER 2024-10-08 16:45 | Emergency (ER) | payer BC, SELFPAY ==
[2024-10-08 18:00] VITALS: BP 117/87; PULSE 103; RESP 19; TEMP 36.8; O2SAT 98; BMI 23.5
--- NOTE | 2024-10-08 18:14 | EXP.UTC ---
Discharge Plan Disposition Patient Disposition: Home, Self-Care Condition: Good Prescriptions Prescriptions: No Action valacyclovir 500 mg tablet 500 mg PO DAILY Patient Comments: TAKE 1 TABLET BY MOUTH ONCE DAILY levothyroxine 50 mcg tablet 50 mcg PO DAILY famotidine 20 mg tablet 20 mg PO DAILY omeprazole 20 mg capsule,delayed release(DR/EC) 20 mg PO BID fluoxetine 20 mg capsule 20 mg PO DAILY lamotrigine 100 mg tablet 100 mg PO DAILY dextroamphetamine-amphetamine 5 mg tablet 5 mg PO BID Patient Comments: TAKE 1 TABLET BY MOUTH TWICE DAILY Referrals Follow up/Referrals: Leola Guerrero [Primary Care Provider] - See instructions Activity Restrictions/Add. Instructions Additional Instructions/Restrictions: *Monitor Temp, Over the counter Motrin or Tylenol as directed/as needed Tylenol every 4 hours and Motrin every 6 hours (as long as your family doctor has told you that you can take it) for fever or pain. and straight to ER if unable to lower temp less than 101.0 after medication given *Warm salt water gargles may help to soothe the throat *Throat Lozenges? *Warm fluids like tea with honey may help to soothe the throat? *Sleep elevated *Humidifier/Vaporizer Your throat swab was sent for culture. Those results are typically sent to your primary care. Be sure to follow up in 2-3 days with your family doctor/primary care physician if no improvement so they can review those result and treat if necessary. If you don?t have a primary care doctor, I recommend you get one but in the mean time, you will have to return to a walk in clinic Follow up IMMEDIATELY for new or worsening symptoms or no Noticeable improvement over the next 48-72 hours. 911 for difficulty breathing or swallowing Clinical Impressions Clinical Impression: Viral upper respiratory infection Instructions Patient Instructions: DI for Viral Upper Respiratory Infection -- Adult Print Language Print Language: Latvian Discharge ED Provider: Tia Beckham [facility] [place] HPI General Stated complaint: sore throat lindsay HURD Mode of Arrival: Ambulatory Source of Information: Patient Limitations: No Limitations Time Seen by Provider: 10/08/24 18:14 Description of Symptoms (Recalled from Triage Doc. by RN): PATIENT C/O CONGESTION, HEADACHE, RUNNY NOSE, SORE THROAT AND EAR PAIN SINCE YESTERDAY HEENT Symptoms (Recalled from RN notes): Yes Resp Symptoms (Recalled from RN notes): No Skin Symptoms (Recalled from RN notes): No MS Symptoms (Recalled from RN notes): No Functional Status (Recalled from RN notes): WNL History of Present Illness Provider Complaint: Patient states that she started feeling bad yesterday with sore throat, pain and pressure in her ears, sinus congestion headache and runny nose States today she wasnt feeling any better so she came in to get checked Related Data Home Medications ?Medication ?Instructions ?Recorded ?Confirmed valacyclovir 500 mg tablet 500 mg PO DAILY Cold Sores 12/09/19 10/08/24 lamotrigine 100 mg tablet 100 mg PO DAILY 02/11/24 10/08/24 famotidine 20 mg tablet 20 mg PO DAILY 09/29/24 10/08/24 fluoxetine 20 mg capsule 20 mg PO DAILY 09/29/24 10/08/24 levothyroxine 50 mcg tablet 50 mcg PO DAILY 09/29/24 10/08/24 omeprazole 20 mg capsule,delayed 20 mg PO BID 09/29/24 10/08/24 release dextroamphetamine-amphetamine 5 mg 5 mg PO BID 10/08/24 10/08/24 tablet Allergies Allergy/AdvReac Type Severity Reaction Status Date / Time adhesive Allergy Mild swelling Verified 09/29/24 08:35 Penicillins (PENICILLINS) Allergy Unknown Unknown Verified 10/08/24 18:12 allergy reaction lactose Allergy Unknown Verified 10/08/24 18:12 allergy reaction mushroom Allergy Unknown Verified 10/08/24 18:12 allergy reaction ANA Inhibitors AdvReac Mild Unknown Verified 10/08/24 18:12 allergy reaction Sulfa (Sulfonamide AdvReac Diarrhea Verified 10/08/24 18:12 Antibiotics) sulfamethoxazole (From AdvReac diarrhea Verified 09/29/24 08:35 Bactrim) trimethoprim (From Bactrim) AdvReac diarrhea Verified 09/29/24 08:35 Worker's Comp Is this a Worker's Comp case?: No [facility] Disclaimer: The information contained in this section may have been updated after the patient was seen, as this information can be updated by other users. Medical History (Updated 10/08/24 @ 18:29 by Carina Beckham, [employer]) Bicornuate uterus PCOS (polycystic ovarian syndrome) Migraine Secondary amenorrhea Vaginismus Dyspareunia Dysmenorrhea Phantosmia Abnormal uterine bleeding Chronic pelvic pain in female HTN (hypertension) Deviated septum Chronic Ear Infection Hypertrophy of tonsil Tympanosclerosis Hypothyroidism Endometriosis Surgical History H/O gastric sleeve History of gastric bypass Hx of wisdom tooth extraction History of placement of ear tubes Hx of laparoscopy Hx of dilation and curettage Hx laparoscopic cholecystectomy Family History Other Cancer Diabetes Heart attack Hyperlipidemia Hypertension Stroke Social History Smoking Status: Never smoker second hand exposure: Yes alcohol intake: never substance use type: denies use current occupational status: other Travel in the last 8 weeks: None household members: spouse and family housing: house current occupational exposures/hazards: No caffeine: No Have you lived/traveled outside [place] in past 30 days?: No Contact w/someone who lives/traveled outside [place] past 30 days?: No Exposure to someone with infectious disease in past 14 days?: No Do you have a fever (greater than 100.4 F or 38 C)?: No Have you tested positive for COVID-19: No Exposed to someone with COVID-19 in past 14 days?: No Do you have a sore throat?: Yes Do you have a cough?: No Do you have any weakness?: Yes Do you have any diarrhea?: No Are you experiencing any unusual bleeding?: No Do you have any muscle aches/pain?: No Do you have any abdominal pain?: No Are you experiencing loss of taste or smell?: No ROS Obtained: Yes All systems reviewed & no additional complaints except as documented and Yes Systems reviewed as appropriate & no additional complaints except as documented Constitutional Constitutional: Reports system reviewed and no additional complaints, except as documented, Reports as per HPI and Reports headache(s) ENT Ears, Nose, Mouth, and Throat: Reports system reviewed and no additional complaints, except as documented, Reports as per HPI, Reports otalgia, Reports headache(s), Reports nasal congestion and Reports nasal discharge Cardiovascular Cardiovascular: Reports system reviewed and no additional complaints, except as documented and Reports as per HPI Respiratory Respiratory: Reports system reviewed and no additional complaints, except as documented, Reports as per HPI and Reports cough Gastrointestinal Gastrointestingal: Reports system reviewed and no additional complaints, except as documented and as per HPI Neurologic Neurologic: Reports headache(s) Physical Exam General General appearance: alert and in no apparent distress ENT ENT exam: Absent mucous membranes moist Expanded ENT Exam TM/Canal exam: Bilateral TM: bulging (no redness) Nose exam: Absent sinus tenderness Throat exam: Present tonsillar erythema Respiratory Respiratory exam: Present normal lung sounds bilaterally; Absent respiratory distress or wheezes Cardiovascular Cardiovascular exam: Present regular rate, normal rhythm and normal heart sounds Abdominal Exam Abdominal exam: Present soft and normal bowel sounds; Absent distention or tenderness Neurological Exam Neurological exam: Present alert, oriented X3 and normal gait Medical Decision Making Medical Records Screening: Per USPSTF and CDC recommendations, given the prevalence of disease in our region, it is our hospital?s policy to screen for HIV and viral Hepatitis for all patients aged 18 and over and those with ongoing risk factors. Phil Inquiry Pt receiving controlled substance: No Phil was queried for this patient: No Vital Signs: 10/08/24 18:00 Temperature 98.3 F Temperature Source Oral Pulse Rate [Left Brachial] 103 H Respiratory Rate 19 Blood Pressure [Left Arm] 117/87 Blood Pressure Mean [Left Arm] 97 Blood Pressure Source [Left Arm] Automatic Cuff Blood Pressure Position [Left Arm] Sitting 02 Sat by Pulse Oximetry 98 Oxygen Delivery Method Room Air Lab Data Lab results reviewed: Yes I reviewed the patient's lab results.
[2024-10-08 18:35] VITALS: BP 117/87; PULSE 103; RESP 19; TEMP 36.8; O2SAT 98
[2024-10-08 18:35] LABS: UTC Influenza A Antigen Negative (Negative); UTC Influenza B Antigen Negative (Negative)
[2024-10-08 18:35] LABS: UTC Strep Screen (Rapid) Negative (Negative)
[2024-10-08 18:43] LABS: Coronavirus 19, PCR Not Detected (NotDetected); Influenza A, PCR Not Detected (NotDetected); Influenza B, PCR Not Detected (NotDetected); Respiratory Syncytial Virus Not Detected (NotDetected)
[2024-10-09 03:26] LABS: Human Rhinovirus Detected (NotDetected)
== END 2024-10-08 18:37 | disposition home or self-care (01) ==
PROVIDERS: Emergency Provider Nurse Practitioner; PCP Family Medicine
DX: J06.9 Acute upper respiratory infection, unspecified (principal)
CPT/HCPCS: 87631; 87804; 87880; 99213; G0381

== ENCOUNTER 2024-11-04 07:54 | Outpatient (CLI) | payer BC, SELFPAY ==
[2024-11-04 08:24] LABS: Basophils # 0.1 K/mm3 (0-0.2); Eosinophils # 0.2 K/mm3 (0.0-0.4); Hemoglobin 13.7 g/dL (12.2-16.2); Lymphocytes # 2.6 K/mm3 (0.7-4.5); Lymphocytes % 51.1 % (10-50); Mean Corpuscular HGB Conc 35.1 g/dL (31.8-35.4); Mean Corpuscular Hemoglobin 31.4 pg (27.0-31.2); Mean Corpuscular Volume 89.4 fl (81-99); Mean Platelet Volume 9.1 fl (7.4-10.4); Monocytes # 0.4 K/mm3 (0.1-1.0); Monocytes % 7.8 % (1.7-9.3); Neutrophils # 1.9 K/mm3 (1.8-7.8); Neutrophils % 37.1 % (37.0-80.0); Platelet Count 291 K/mm3 (142-424); Red Blood Count 4.36 M/mm3 (4.20-5.40)
[2024-11-04 08:50] LABS: Alanine Aminotransferase 23 U/L (12-78); Albumin Level 4.8 g/dl (3.5-5.0); Alkaline Phosphatase 67 U/L (38-126); Anion Gap 11.9 mEq/L (5-15); Aspartate Amino Transferase 27 U/L (14-36); Bilirubin,Total 0.7 mg/dl (0.2-1.3); Blood Urea Nitrogen 19 mg/dl (7-17); Carbon Dioxide 28 mmol/L (22.0-30.0); Chloride 102 mmol/L (98-107); Chol/HDL Ratio 3.3 (1-3.5); Cholesterol 148 mg/dl (140-200); Estimated Glomerular Filt Rate 118 ml/min (>60); GFR (African American) 143 ML/MIN (>60); Globulin 2.4 g/dL (1.3-3.2); Glucose 79 mg/dl (74-100); HDL Cholesterol 45 mg/dl (40-60); Potassium 3.9 mmoL/L (3.5-5.1); Sodium 138 mmol/L (136-145); Total Protein,Serum 7.2 g/dl (6.3-8.2); Triglycerides 91 mg/dl (30-150); VLDL Cholesterol 18 mg/dL (0-40)
[2024-11-04 09:06] LABS: Free T4 (Free Thyroxine) 1.22 ng/dl (0.78-2.19)
[2024-11-04 09:08] LABS: 25-OH Vitamin D, Total 45.7 ng/mL (30-100)
[2024-11-04 09:09] LABS: Iron 170 ug/dL (37-170)
[2024-11-04 09:14] LABS: MANUAL DIFFERENTIAL MANUAL DIFFERENTIAL (MANUAL DIFF)
[2024-11-04 09:19] LABS: Total Iron Binding Capacity 316 ug/dL (265-497)
[2024-11-04 09:21] LABS: Thyroid Stimulating Hormone 0.02 uIU/mL (0.465-4.68)
[2024-11-04 09:38] LABS: Hemoglobin A1C 4.5 % (4.0-6.0)
[2024-11-04 09:45] LABS: Ferritin 43.3 ng/ml (6.24-137)
[2024-11-04 09:57] LABS: Folate > 20.00 ng/mL
[2024-11-04 10:44] LABS: Lymphocytes % 55 % (10-50); Monocytes % 8 % (2-9); Neutrophils % 37 % (42-76); Platelet Estimate Normal; RBC Morphology Normal; Total Cells Counted 100
[2024-11-05 07:29] LABS: Prealbumin 23 mg/dL (14-35)
[2024-11-09 12:10] LABS: Methylmalonic Acid 123 nmol/L (0-378)
[2024-11-09 20:11] LABS: Vitamin B1 136.9 nmol/L (66.5-200.0)
[2024-11-10 21:26] LABS: Vitamin A 41.5 ug/dL (18.9-57.3); Vitamin E Gamma Tocopherol 0.4 mg/L (0.7-4.9)
== END 2024-11-04 23:59 | disposition home or self-care (01) ==
LOC: LAB 07:55
PROVIDERS: PCP Family Medicine; Visit Provider Nurse Practitioner Family
DX: E03.9 Hypothyroidism, unspecified (principal); I10 Essential (primary) hypertension; E28.2 Polycystic ovarian syndrome; Z91.89 Other specified personal risk factors, not elsewhere classified
CPT/HCPCS: 36415; 80053; 80061; 82306; 82728; 82746; 83036; 83540; 83550; 83921; 84134; 84425; 84439; 84443; 84446; 84590; 85007; 85025; 85027

== ENCOUNTER 2024-12-13 07:23 | Outpatient (CLI) | payer BC, SELFPAY ==
[2024-12-13 09:08] LABS: Thyroid Stimulating Hormone 3.09 uIU/mL (0.465-4.68)
== END 2024-12-13 23:59 | disposition home or self-care (01) ==
PROVIDERS: PCP Family Medicine; Visit Provider Nurse Practitioner
DX: E03.9 Hypothyroidism, unspecified (principal)
CPT/HCPCS: 36415; 84443

== ENCOUNTER 2025-01-31 07:33 | Outpatient (CLI) | payer BC, SELFPAY ==
--- NOTE | 2025-01-31 07:30 | MR_ITS ---
FINAL REPORT TECHNIQUE: Multiplanar and multisequence imaging of the brain was obtained before and after contrast administration. CLINICAL HISTORY: Olfactory dysfunction, seizure pt is having phantom smells, smelling diesel fumes that are not there COMPARISON: None FINDINGS: Brain parenchymal: There is no mass effect or midline shift. Note is made of a partially empty sella. There are no areas of abnormal signal intensity.The cerebellum and brainstem are without acute abnormality. Ventricles: The ventricles are symmetric in size and configuration without hydrocephalus. Extra-axial spaces: No extra-axial fluid collections. Diffusion imaging: No areas of restricted diffusion to suggest acute infarct. Flow voids: Flow voids within the major intracranial vessels are preserved. Soft tissues: Soft tissues are without acute abnormality. Post contrast imaging: No abnormal enhancement. IMPRESSION: No acute intracranial abnormality and no pathologic contrast enhancement. Note is made of a partially empty sella. Reviewed, Interpreted and Dictated by Perri Estrada MD Transcribed by Aruna Briggs Authenticated and [facility]
--- OUTSIDE RECORDS SUMMARY | 2025-01-31 07:35 | XMS_ITS | Continuity of Care Document ---
Author Organization [place] - [facility] Address [address] [place] [address] Care Team Providers Care Supervisor Extrusion Name Role Phone ANGELES MUNOZ Primary Care Provider Assessment No assessment recorded. Plan of Treatment Reminders Order Date Submit Date Provider Last Modified By Organization Details Last Modified Time Details Appointments OV EST 20 2024 02:40P M Darryl Baez, DNP, [employer], NATIONAL SALES EXECUTIVE-C Not available Not available Not available Lab HbA1c (hemoglob in A1c), blood 2024 025 [place] [facility], [address], [place], [address], 01/28/2025 14:33:31 Referral None recorded. Procedures None recorded. Surgeries None recorded. Imaging None recorded. Medication Orders Voquezna 20 mg tablet 2024 025 [place] [facility] [address], [place], [address], 01/28/2025 14:38:17 famotidin e 20 mg tablet 2024 025 [facility], [address], [id number], 01/28/2025 16:28:26 Patient TargetsNo targets recorded. Patient InstructionsNo instructions recorded. Reason for Referral None Reported. Problems Name Problem SNOMED Code Status Onset Date Resolution Date Notes Provider Name and Address Organization Details Recorded Time Polycystic ovary syndrome 712974516 Active 2024 Darryl Baez DNP, RUFINO, NATIONAL SALES EXECUTIVE-C [address], [place], [address] , [place] [facility] - [place] & [place] 5 11:47:47 Hypothyroi dism 09821465 Active 2022 Darryl Baez DNP, APRN, NATIONAL SALES EXECUTIVE-C [address], [place], [place], [address] [place] [address] , [place] [facility] [place] & [place] 3 08:17:42 Essential hypertensi on 66456511 Active 2022 Darryl Baez DNP, APRN, NATIONAL SALES EXECUTIVE-C [address], [place], [address] , [place] [facility] & [place] 3 08:17:46 Morbid obesity 103328904 Active 2022 Darryl Baez DNP, APRN, NATIONAL SALES EXECUTIVE-C [address], [place], [address] , [place] [facility] & [place] 3 08:17:52 Disorder of function of stomach 062044125 Active 2022 Darryl Baez DNP, APRN, NATIONAL SALES EXECUTIVE-C [address], [place], [address] , [place] [facility] & [place] 3 08:17:59 Unintentio nal weight gain 3635032152921 04 Active 2022 Darryl Baez DNP, APRN, NATIONAL SALES EXECUTIVE-C [address], [place], [address] [place] [address] , [place] [facility] & [place] 3 08:18:05 Anxiety 18373456 Active 2022 Darryl Baez DNP, APRN, NATIONAL SALES EXECUTIVE-C [address], [place], [address] , [place] [facility] & [place] 3 12:38:43 Depressive disorder 55148806 Active 2022 Darryl Baez DNP, [employer], NATIONAL SALES EXECUTIVE-C [address], [place], [address] [place] [address] , [place] [facility] [place] 3 12:38:52 Intentiona l weight loss 902908792 Active 2022 Darryl Baez DNP, APRN, NATIONAL SALES EXECUTIVE-C [address], [place], [address] [place] [address] , [place] [facility] 3 10:29:39 Urticaria 603271950 Active 2022 Darryl Baez DNP, APRN, NATIONAL SALES EXECUTIVE-C [address], [place], [address] [place] [address] , [place] [facility] 3 10:29:46 Obesity 381882272 Active 2022 Darryl Baez DNP, APRN, NATIONAL SALES EXECUTIVE-C [address], [place], [address] [place] [address] , [place] [facility] & [place] 3 11:20:07 Heartburn 34377129 Active 2023 Darryl Baez DNP, [employer], NATIONAL SALES EXECUTIVE-C [address], [place], [address] [place] [address] , [place] [facility] [place] & [place] 4 12:00:48 Overweight 799391063 Active 2023 Darryl Baez DNP, [employer], NATIONAL SALES EXECUTIVE-C [address], [place], [address] [place] [address] , [place] [facility] [place] & [place] 4 12:02:02 Constipati on 38526430 Active 2023 Darryl Baez DNP, [employer], NATIONAL SALES EXECUTIVE-C [address], [place], [address] [place] [address] , [place] [facility] & [place] 4 12:14:11 Problem Notes None recorded. Procedures Surgical History Date Name Laterality Status Provider Name and Address Organization Details Recorded Time cholecystectomy completed Darryl Hayward, ALLYSSA, [employer], NATIONAL SALES EXECUTIVE-C [address], [place], [address], [facility] & [place] 01/30/2023 10:35:04 extraction of wisdom tooth completed Aurora STAFFORD - [facility] & [place] 01/27/2023 15:58:15 laparoscopy completed Aurora Rodgers [place] [facility] & [place] 01/27/2023 15:58:46 Dilation and curettage completed Aurora Rodgers [place] [facility] & [place] 01/27/2023 15:59:00 Ear Tube completed Darryl Baez, ALLYSSA, [employer], NATIONAL SALES EXECUTIVE-C [address], [place], [address], [facility] - [facility] & [place] 01/30/2023 10:35:31 laparoscopic sleeve gastrectomy completed Florencio Ovalles [facility] & [place] 07/15/2023 08:19:02 Imaging Results None recorded. Procedure Notes None recorded. Medical Equipment None Reported. Allergies Allergen ID Allergen Name Allergen Category Reaction Reaction Severity Criticality Documentation Date Start Date Code Code System Note Provider Name and Address Organization Details Recorded Time 78770 Product containin g penicilli n (product) medicatio n Not available Not available Not available 01/27/2023 53683 8001 SNOMED Aurora beauchamp, [place] - [facility] & [place] 15:54:37 70776 Bactrim medicatio n diarrhea Not available Not available 01/27/2023 97121 9 RxNorm Aurora beauchamp, [place] - [facility] & [place] 15:54:48 25778 lactose food,medi cation diarrhea Not available Not available 01/27/2023 6211 RxNorm Aurora beauchamp, [place] - [facility] & [place] 15:55:05 42133 cultivate d mushroom extract food vomiting Not available Not available 01/27/2023 89042 17 RxNorm Aurora beauchamp, [place] - [facility] & [place] 3 15:55:15 28783 Product containin g angiotens in-conver ting enzyme inhibitor (product) medicatio n Not available Not available Not available 06/25/2023 73771 009 SNOMED Florencio Sharp-Bec goran beauchamp, [facility] & [place] 3 07:52:37 70073 levofloxa ina medicatio n Not available Not available Not available 07/15/2023 71055 RxNorm Florencio Sharp-Bec goran quynh, [place] - [facility] & [place] 3 08:16:19 08354 adhesive environme nt,medica tion Not available Not available Not available 07/17/2023 12212 UNK DERMA SANCHES Florencio Sharp-Bec goran [facility], [facility] & [place] 3 15:19:49 Medications Name Sig Start Date Stop Date Status Note LastModified by Organization Details LastModified Time quetiapine 25 mg tablet 01/30 completed Not Available Not Available Not Available fluoxetine 40 mg capsule TAKE 1 CAPSULE BY MOUTH EVERY DAY active Not Available Not Available No t Available medroxyprog esterone 10 mg tablet 10/22 completed Not Available Not Available Not Available Colace 100 mg capsule Take 1 capsule every day by oral route. 10/17 completed Not Available Not Available Not Available triazolam 0.25 mg tablet TAKE TWO TABLETS BY MOUTH ONE HOUR PRIOR TO DENTAL APPOINTME NT FOR DENTAL ANXIETY. BRING 3RD TABLET WITH YOU TO APPOINTME NT 01/15 completed Not Available Not Available Not Available cetirizine 10 mg tablet TAKE ONE TABLET BY MOUTH ONCE A DAY active Not Available Not Available No t Available azithromyci n 250 mg tablet TAKE 2 TABLETS BY MOUTH ON DAY 1, AND THEN TAKE 1 TABLET BY MOUTH ONCE A DAY ON DAY 2 THROUGH DAY 5 10/22 completed Not Available Not Available Not Available ibuprofen 800 mg tablet 06/25 completed Not Available Not Available Not Available fluconazole 150 mg tablet 01/30 completed Not Available Not Available Not Available metoprolol succinate ER 50 mg tablet,exte nded release 24 hr 01/30 completed Not Available Not Available Not Available clomiphene citrate 50 mg tablet 01/30 completed Not Available Not Available Not Available valacyclovi r 1 gram tablet 01/15 completed Not Available Not Available Not Available prednisone 20 mg tablet 04/16 completed Not Available Not Available Not Available pimecrolimu s 1 % topical cream 10/17 completed Not Available Not Available Not Available metronidazo le 500 mg tablet 01/30 completed Not Available Not Available Not Available fexofenadin e 180 mg tablet 08/11 completed Not Available Not Available Not Available valacyclovi r 500 mg tablet TAKE 1 TABLET BY MOUTH EVERY DAY active Not Available Not Available No t Available aspirin 81 mg tablet,sophia yed release 06/25 completed Not Available Not Available Not Available dexmethylph enidate 5 mg tablet 01/15 completed Not Available Not Available Not Available ondansetron 8 mg disintegrat ing tablet Place 1 tablet twice a day by transling ual route as needed for 28 days. 01/15 completed Not Available Not Available Not Available levothyroxi ne 25 mcg tablet TAKE 1 TABLET BY MOUTH EVERY DAY 01/28 completed Not Available Not Available Not Available lamotrigine 25 mg tablet 01/15 completed Not Available Not Available Not Available levothyroxi ne 75 mcg tablet 10/22 completed Not Available Not Available Not Available bisoprolol fumarate 5 mg tablet TAKE 1 TABLET BY MOUTH EVERY DAY active Not Available Not Available No t Available nystatin-tr iamcinolone 100,000 unit/gram-0 .1 % topical ointment APPLY TO THE AFFECTED AREA(S) BY TOPICAL ROUTE 2 TIMES PER DAY 10/17 completed Not Available Not Available Not Available propranolol 10 mg tablet 01/28 completed Not Available Not Available Not Available ofloxacin 0.3 % ear drops 06/25 completed Not Available Not Available Not Available famotidine 20 mg tablet Take 1 tablet as needed by oral route at bedtime. 2024 active Not Available Not Available Not Avai lable benzonatate 100 mg capsule 04/16 completed Not Available Not Available Not Available levothyroxi ne 50 mcg tablet active Not Available Not Available Not Available triamcinolo ne acetonide 0.1 % topical ointment 10/17 completed Not Available Not Available Not Available lisinopril 10 mg tablet 06/25 completed Not Available Not Available Not Available metronidazo le 0.75 % topical cream 01/15 completed Not Available Not Available Not Available losartan 25 mg tablet 06/25 completed Not Available Not Available Not Available fluoxetine 10 mg capsule 10/22 completed Not Available Not Available Not Available gabapentin 300 mg capsule Take 1 capsule 3 times a day by oral route for 7 days. 08/11 completed Not Available Not Available Not Available sertraline 25 mg tablet 04/16 completed Not Available Not Available Not Available omeprazole 20 mg capsule,del ayed release Take 1 capsule twice a day by oral route for 30 days. 01/28 completed Not Available Not Available Not Available dextroamphe tamine-amph etamine ER 10 mg 24hr capsule,ext end release 06/25 completed Not Available Not Available Not Available hydroxyzine HCl 25 mg tablet 10/17 completed Not Available Not Available Not Available metoprolol succinate ER 25 mg tablet,exte nded release 24 hr Take 1 tablet every day by oral route. 07/15 completed Not Available Not Available Not Available polyethylen e glycol 3350 17 gram/dose oral powder 07/21 completed Not Available Not Available Not Available letrozole 2.5 mg tablet 01/30 completed Not Available Not Available Not Available methylpredn isolone 4 mg tablets in a dose pack TAKE BY MOUTH DIRECTED ON INSIDE OF PACKAGE FOR 6 DAYS 04/16 completed Not Available Not Available Not Available celecoxib 100 mg capsule Take 1 capsule twice a day by oral route ] for 7 days. 07/15 completed Not Available Not Available Not Available bromphenira mine-pseudo ephedrine-D M 2 mg-30 mg-10 mg/5 mL oral syrup 06/25 completed Not Available Not Available Not Available ondansetron 4 mg disintegrat ing tablet Place 1 tablet every 6 hours by transling ual route as needed. 01/15 completed Not Available Not Available Not Available cefdinir 300 mg capsule 06/25 completed Not Available Not Available Not Available losartan 100 mg tablet Take 1 tablet every day by oral route. 08/11 completed Not Available Not Available Not Available fluoxetine 20 mg capsule Take 3 capsules every day by oral route. 01/28 completed Not Available Not Available Not Available fluticasone propionate 50 mcg/actuati on nasal spray,suspe nsion active Not Available Not Available Not Available doxycycline hyclate 100 mg tablet 06/25 completed Not Available Not Available Not Available lamotrigine 100 mg tablet TAKE 1 TABLET BY MOUTH AT BEDTIME active Not Available Not Available No t Available dextroamphe tamine-amph etamine 5 mg tablet TAKE 1 TABLET BY MOUTH TWICE DAILY 01/28 completed Not Available Not Available Not Available naproxen 500 mg tablet Take 1 tablet twice a day by oral route as needed. active Not Available Not Available No t Available mometasone 0.1 % topical cream active Not Available Not Available Not Available oxycodone 5 mg tablet TAKE ONE TABLET BY MOUTH EVERY 8 HOURS NEEDED FOR PAIN MAY CAUSE DROWSINES S 01/30 completed Not Available Not Available Not Available escitalopra m 20 mg tablet 01/30 completed Not Available Not Available Not Available Senna Plus 8.6 mg-50 mg tablet 01/30 completed Not Available Not Available Not Available escitalopra m 5 mg tablet TAKE 1 TABLET BY MOUTH ONCE DAILY 10/22 completed Not Available Not Available Not Available nitrofurant oin monohydrate /macrocryst als 100 mg capsule 10/22 completed Not Available Not Available Not Available dexmethylph enidate ER 10 mg capsule,ext ended release - 50 Take 2 capsules every day by oral route. 08/11 completed Not Available Not Available Not Available magnesium 01/15 completed Not Available Not Available Not Available calcium active Not Available Not Avail able Not Available fiber 01/15 completed Not Available Not Available Not Available Vitamin D3 07/15 completed Not Available Not Available Not Available Metamucil once daily 10/17 completed Not Available Not Available Not Available Miralax 10/17 completed Not Available Not Available Not Available multivitami n active Not Available Not Available Not Available dexmethylph enidate ER 15 mg capsule,ext ended release [id number]- 50 Take 1 capsule every day by oral route. 01/15 completed Not Available Not Available Not Available diclofenac 1 % topical gel APPLY 2 GRAMS TO THE AFFECTED AREA(S) BY TOPICAL ROUTE 4 TIMES PER DAY active Not Available Not Available No t Available levothyroxi ne 75 mcg capsule Take 1 capsule every day by oral route. 10/22 completed Not Available Not Available Not Available Probiotic 07/15 completed Not Available Not Available Not Available Jennifer Allergy 07/15 completed Not Available Not Available Not Available Estarylla 0.25 mg-0.035 mg tablet 07/15 completed Not Available Not Available Not Available guaifenesin ER 600 mg tablet, extended release 12 hr 06/25 completed Not Available Not Available Not Available Yue 24 Fe 1 mg-20 mcg (24)/75 mg (4) tablet 10/22 completed Not Available Not Available Not Available Voquezna 20 mg tablet Take 1 tablet every day by oral route. 2024 active Not Available Not Available Not Avai lable Vitals Date Recorded Body height Body temperature Heart rate Body mass index (BMI) Body weight Systolic blood pressure Diastolic blood pressure Provider Name and Address Organization Details Last Updated DateTime 160.02 cm 98.4 [degF] 87 /min 23.6 kg/m2 91129.2 2 g 110 mm[Hg] 78 mm[Hg] Shy Garcia [facility] & [place] 13:58:01 Social History Question Answer Notes LastModified by Organizat ion Details LastModified Time Tobacco Smoking Status Never Smoker Aurora Rodgers [facility], [facility] & [place] 01/27/2023 15:57:52 What Is Your Level Of Alcohol Consumption? None Information not available 08/11/2023 What Is Your Level Of Caffeine Consumption? 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 No [email or web address] Information not available 01/27/2023 Sex: Unknown Functional Status None recorded. Mental Status None recorded. Family History Relationship Description Onset Age of this Age Resolved Age Notes LastModified by Organization Details LastModified Time Maternal Grandmother Obese [email or web address] Not available 11:13:38 Maternal Grandmother Diabetes mellitus [email or web address] Not available 10/13 11:13:38 Maternal Grandmother Heart disease [email or web address] Not available 16:12:19 Maternal Grandmother Hypercholest erolemia [email or web address] Not available 16:12:52 Maternal Grandmother Asthma [email or web address] Not available 11:13:38 Maternal Grandmother Disorder of endocrine system pt. added direct ly (01/29) [email or web address] Not available 01/29/2023 15:01:55 Maternal Grandmother Myocardial infarction pt. added direct ly (01/29) [email or web address] Not available 01/29/2023 15:02:13 Maternal Grandmother Mental health problem pt. added direct ly (01/29) [email or web address] Not available 01/29/2023 15:02:48 Paternal Grandfather Obese [email or web address] Not available 11:13:38 Paternal Grandfather Hypertensive disorder Not available 16:11:58 Paternal Grandfather Hypercholest erolemia [email or web address] Not available 16:12:52 Father Hypertensive disorder [email or web address] Not available 16:11:58 Father Hypercholest erolemia [id number] Not available 16:12:52 Maternal Grandfather Cerebrovascu lar accident [email or web address] Not available 01/27/2023 16:12:28 Maternal Grandfather Hypercholest erolemia [email or web address] Not available 16:12:52 Maternal Grandfather Rheumatoid arthritis pt. added direct ly (01/29) [email or web address] Not available 01/29/2023 15:03:16 Mother Mental health problem pt. added direct ly (01/29) [email or web address] Not available 01/29/2023 15:02:48 Brother Mental health problem pt. added direct ly (01/29) [email or web address] Not available 01/29/2023 15:02:48 Sister Mental health problem pt. added direct ly (01/29) [email or web address] Not available 01/29/2023 15:02:48 Medical History Condition Response Anxiety Disorder Y Muscle, Joint, or Bone Problems Y Other Y Hypothyroidism Y Depression Y GI Problems Y Skin Problems Y Constipation Y Reflux/GERD Y GERD/Reflux Y High Cholesterol Y Liver Disease Y Fibromyalgia Y Headaches Y Hypertension Y Gynecological HistoryNo gynecological history recorded. Obstetrics History GPAL:G 0 P 0 0 0 0 Immunizations Vaccine Type Date Status Note Provider Jacinto ndiaye and Address Organization Details Recorded Time influenza, unspecified formulation 01/29/2023 completed Shy Garcia null, [place] - [facility] - [place] & [place] 08/11/2023 11:08:09 influenza, unspecified formulation 01/21/2024 completed Sherie Smiley null, [place] [facility] [place] & [place] 10/22/2024 11:20:06 Past Encounters Encounter ID Performer Location Encounter Start Date Encounter Closed Date Diagnosis/Indication Diagnosis SNOMED-CT Code Diagnosis ICD10 Code Diagnosis Note [id number] Darryl Baez, DNP, [employer], NATIONAL SALES EXECUTIVE-C [facility] [address] [place] [address] 01/28/2025 13:33:52 01/28/2025 14:41:19 History of bariatric surgical procedure 315626520 Z98.84 Intentiona l weight loss 601963587 R63.8 History of gastrectomy 676205040 Z90.3 Advised qid intake 50% protein 0109-6008 calories/d y less than 100 carbs/dy Long discussion today of InBody results including PBF(percen t body fat) SMM (skeletal muscle mass) Visceral fat level level BMR Segmental Fat Analysis and Segmental Lean Analysis. Encouraged pt to take minimal calories as per BMR and to anticipate changes in SMM and PBF values not just total weight. Follow-up with Repeat [facility] in 3mth suggested Patient is status post bariatric surgery and at increased risk for vitamin deficienci es and malnutriti on. Bariatric vitamin panel ordered today. Patient will be contacted to correct any vitamin deficienci es. At [facility] risk of nutritional deficit 321371739 Z91.89 Essential hypertension 79662289 I10 Hypothyroidism 71788039 E03.9 Advised to keep upcoming appointmen t with endocrinol ogist. Polycystic ovary syndrome 287170495 E28.2 Heartburn 17036237 R12 Health Concerns Section Related Observation LastModified by Organization Detai ls LastModified Time None Recorded Concern Status LastModified by Organization Details LastModified Time None Recorded Payers Encounter Date Sequence Insurance Name Policy Number Policy Voss Covered Member ID Voss Member ID Guarantor Name 01/28/2025 1 [place] [employer] [id number] 1 Lynn Hylton [id number] Lynn Hylton Notes Date Note Type Note Provider Name and Address Organization Details Recorded Time 01/28/2025 text/html Patient presents the office today for routine follow-up status post bariatric gastric sleeve gastrectomy surgery ( 2022 ). Patient doing well. Reports q.i.d. small meal intake. Reports 90-110g/dy protein intake and good hydration.Patient is drinking 64 ounces of water a day.Daily Calories 1250Taking routine vitamins as advised.Heartburn /gastroesophageal reflux: has been much better while taking Voquezna. Also takes H2 blocer at bedtime.Pt Denies : abdominal pain, prandial issues Nausea, Vomiting, bowel or bladder issuesTotal Weight loss Since last office visit has been 1.7 lbsPt is happy with their quality of life after Weight loss Surgery.Has been seeing Endocrinology. She just seen today and they did change rx for mes.Today's InBody reveals a skeletal muscle mass = 45.6 lb,body fat mass = 46.8 lb,BMI = 23.6Percent body fat = 35.1Basal Metabolic Rate = 1218 kilo calories Darryl Baez, ALLYSSA, [employer], NATIONAL SALES EXECUTIVE-C [address], [place], [address], [facility] - [place] - [place] & [place] 01/28/2025 14:52:09 OBGyn Episode No OBEpisode recorded.
--- OUTSIDE RECORDS SUMMARY | 2025-01-31 07:35 | XMS_ITS ---
Author Organization Unknown Patient Care team information Name Category Status Period Participants - - Proposed period not known -
--- OUTSIDE RECORDS SUMMARY | 2025-01-31 07:36 | XMS_ITS | Data Portability ---
Author Organization [place] - [facility] [place] ADMIN Address [address] [place] [id number] Care Team Providers Care Tree Wrapper Name Role Phone ANGELES MUNOZ Primary Care Provider Assessment No assessment recorded. Plan of Treatment Reminders Order Date Submit Date Provider Last Modified By Organization Details Last Modified Time Details Appointments OV EST 20 2024 02:40P M Darryl Baez, DNP, DIRECTOR [employer], [employer] WHE[employer] M[employer]-C Not available Not available Not available Lab HbA1c (hemoglob in A1c), blood 2024 025 [email or web address] [facility], [address], [address], [place], [address], 01/28/2025 14:33:31 iron + TIBC + ferritin, serum 2024 025 [email or web address] [facility], [address], [address], [place], [address], 11/05/2024 12:13:09 folate, serum 2024 025 [email or web address] [facility], [address], [address], [place], [address], 11/05/2024 12:13:09 prealbumi n, serum 2024 025 [email or web address] [facility], [address], [address], [place], [address], 11/05/2024 12:13:09 thiamine, QN, blood 2024 025 [email or web address] [facility], [address], [address], [place], [address], 11/05/2024 12:13:10 methylmal marga, QN, serum or plasma 2024 025 [email or web address] [facility], [address], [address], [place], [address], 11/05/2024 12:13:10 vitamin D, 25-hydrox y, total, serum 2024 025 [facility], [address], [address], [place], [address], 11/05/2024 12:13:10 vitamin E, serum 2024 025 [email or web address] [facility], [address], [address], [place], [address], 11/05/2024 12:13:10 vitamin A (retinol) , serum 2024 025 [facility], [address], [address], [place], [address], 11/05/2024 12:13:10 HbA1c (hemoglob in A1c), blood 2024 025 [email or web address] [facility], [address], [address], [place], [address], 11/05/2024 12:13:10 CBC w/ auto diff 2024 025 [email or web address] [facility], [address], [address], [place], [address], 11/04/2024 11:33:01 CMP, serum or plasma 2024 025 [email or web address] [facility], [address], [address], [place], [address], 11/04/2024 15:15:23 lipid panel, serum 2024 025 [email or web address] [facility], [address], [address], [place], [address], 11/05/2024 12:13:11 TSH + free T4, serum 2024 025 [email or web address] [facility], [address], [address], [place], [address], 11/05/2024 12:13:11 iron + TIBC + ferritin, serum 2023 024 [facility], [address], [address], [place], [address], 07/28/2024 08:50:45 folate, serum 2023 024 [email or web address] [facility], [address], [address], [place], [address], 07/28/2024 08:50:46 prealbumi n, serum 2023 024 [email or web address] [facility], [address], [address], [place], [address], 07/28/2024 08:50:46 thiamine, QN, blood 2023 024 [email or web address] [facility], [address], [address], [place], [address], 07/28/2024 08:50:46 methylmal marga, QN, serum or plasma 2023 024 [email or web address] [facility], [address], [address], [place], [address], 07/28/2024 08:50:46 vitamin D, 25-hydrox y, total, serum 2023 024 [facility], [address], [address], [place], [address], 07/28/2024 08:50:47 vitamin E, serum 2023 024 [email or web address] [facility], [address], [address], [place], [address], 07/28/2024 08:50:47 vitamin A (retinol) , serum 2023 024 [email or web address] [facility], [address], [address], [place], [address], 07/28/2024 08:50:47 CBC w/ auto diff 2023 024 [email or web address] [facility], [address], [address], [place], [address], 07/28/2024 08:50:46 CMP, serum or plasma 2023 024 [email or web address] [facility], [address], [address], [place], [address], 07/28/2024 08:50:46 HbA1c (hemoglob in A1c), blood 2023 024 [email or web address] [facility], [address], [address], [place], [address], 07/28/2024 08:50:46 lipid panel, serum 2023 024 [email or web address] [facility], [address], [address], [place], [address], 07/28/2024 08:50:47 TSH + free T4, serum 2023 024 [email or web address] [facility], [address], [address], [place], [address], 07/28/2024 08:50:47 Referral None recorded. Procedures None recorded. Surgeries None recorded. Imaging None recorded. Medication Orders Voquezna 20 mg tablet 2024 025 HANNA [facility], [address], [place], [address], 01/28/2025 14:38:17 famotidin e 20 mg tablet 2024 025 [facility], [address] [place] [address] [place], [id number], 01/28/2025 16:28:26 famotidin e 20 mg tablet 2024 025 [facility], [address] [place] [address] [place], [id number], 10/22/2024 11:49:33 omeprazol e 20 mg capsule,d elayed release 2024 025 [facility], [address] [place] [address], [place], [id number], 01/28/2025 14:02:40 omeprazol e 20 mg capsule,d elayed release 2023 024 [email or web address] [facility], [address] [place] [address] [place], [id number], 01/28/2025 13:55:24 famotidin e 20 mg tablet 2023 024 [facility], [address] [place] [address] [place], [id number], 04/16/2024 11:40:51 Patient Targets Encounter Date Encounter Id Patient Goals Patient Target Last Modified By Organization Details Last Modified Time 1. Try removing gluten from diet 2. Continue tracking intake3. Continue with physical activity4. Add probiotic5. Follow up w/RD at next appt. [email or web address] Not available 07/21/2024 15:03:25 Patient InstructionsNo instructions recorded. Reason for Referral None Reported. Results Created Date Observation Date Name Description Value Unit Range Abnormal Flag Note LastModifiedBy Organization Detail LastModifiedTime 07/21/20 24 07/22/2024 FE+TI BC+FE R iron bind.cap.(TI BC) 414 ug/dL 250-45 0 normal Not Available [facility] ([facility]) [address] [place], [address], 07/29/2024 12:38:46 07/21/2007/22/2024 FE+TI BC+FE R UIBC 250 ug/dL 131-42 5 normal Not Available [facility] ([facility]) [address] [place], [address], 07/29/2024 12:38:46 07/21/20 24 07/22/2024 FE+TI BC+FE R iron 164 ug/dL 27-159 above high normal Not Available [facility] ([facility]) [address] [place], [address], 07/29/2024 12:38:46 07/21/20 24 07/22/2024 FE+TI BC+FE R iron saturation 40 % 15-55 normal Not Available [facility] ([facility]) [address] [place], [address], 07/29/2024 12:38:46 07/21/20 24 07/22/2024 FE+TI BC+FE R ferritin 73 NG/mL 15-150 normal Not Available [facility] ([facility]) [address] [place], [address], 07/29/2024 12:38:46 07/21/20 24 07/22/2024 TSH+F REE T4 TSH 1.220 uIU/m L 0.450- 4.500 normal Not Available [facility] ([facility]) [address] [place], [address], 07/29/2024 12:38:48 07/21/20 24 07/22/2024 TSH+F REE T4 T4,free(dire ct) 1.63 NG/dL 0.82-1 .77 normal Not Available [facility] ([facility]) [address] [place], [address], 07/29/2024 12:38:48 07/21/20 24 07/22/2024 CBC WITH DIFFE RENTI AL/PL ATELE T WBC 5.4 x10e3 /uL 3.4-10 .8 normal Not Available [facility] ([facility]) [address] [place], [address], 07/29/2024 12:38:49 07/21/2007/22/2024 CBC WITH DIFFE RENTI AL/PL ATELE T RBC 4.92 x10e6 /uL 3.77-5 .28 normal Not Available [facility] ([facility]) [address] [place], [address], 07/29/2024 12:38:49 07/21/20 24 07/22/2024 CBC WITH DIFFE RENTI AL/PL ATELE T hemoglobin 15.7 g/dL 11.1-1 5.9 normal Not Available [facility] ([facility]) [address] [place], [address], 07/29/2024 12:38:49 07/21/20 24 07/22/2024 CBC WITH DIFFE RENTI AL/PL ATELE T hematocrit 48.5 % 34.0-4 6.6 above high normal Not Available [facility] ([facility]) [address] [place], [address], 07/29/2024 12:38:49 07/21/2007/22/2024 CBC WITH DIFFE RENTI AL/PL ATELE T MCV 99 fL 79-97 above high normal Not Available [facility] ([facility]) [address] [facility], [place], [address], 07/29/2024 12:38:49 07/21/20 24 07/22/2024 CBC WITH DIFFE RENTI AL/PL ATELE T MCH 31.9 pg 26.6-3 3.0 normal Not Available [facility] ([facility]) [address] [place], [address], 07/29/2024 12:38:49 07/21/2007/22/2024 CBC WITH DIFFE RENTI AL/PL ATELE T MCHC 32.4 g/dL 31.5-3 5.7 normal Not Available [facility] ([facility]) [address] [place], [address], 07/29/2024 12:38:49 07/21/20 24 07/22/2024 CBC WITH DIFFE RENTI AL/PL ATELE T RDW 12.1 % 11.7-1 5.4 Not Available [facility] ([facility]) [address] [place], [address], 07/29/2024 12:38:49 07/21/20 24 07/22/2024 CBC WITH DIFFE RENTI AL/PL ATELE T platelets 287 x10e3 /uL 150-45 0 normal Not Available [facility] ([facility]) [address] [place], [address], 07/29/2024 12:38:49 07/21/20 24 07/22/2024 CBC WITH DIFFE RENTI AL/PL ATELE T neutrophils 42 % not estab. normal Not Available [facility] ([facility]) [address] [place], [address], 07/29/2024 12:38:49 07/21/20 24 07/22/2024 CBC WITH DIFFE RENTI AL/PL ATELE T lymphs 50 % not estab. normal Not Available [facility] ([facility]) [address] [facility], [place], [address], 07/29/2024 12:38:49 07/21/20 24 07/22/2024 CBC WITH DIFFE RENTI AL/PL ATELE T monocytes 5 % not estab. normal Not Available [facility] ([facility]) [address] [facility], [place], [address], 07/29/2024 12:38:49 07/21/20 24 07/22/2024 CBC WITH DIFFE RENTI AL/PL ATELE T eos 2 % not estab. normal Not Available [facility] ([facility]) [address] [facility], [place], [address], 07/29/2024 12:38:49 07/21/20 24 07/22/2024 CBC WITH DIFFE RENTI AL/PL ATELE T basos 1 % not estab. normal Not Available [facility] ([facility]) [address] [facility], [place], [address], 07/29/2024 12:38:49 07/21/20 24 07/22/2024 CBC WITH DIFFE RENTI AL/PL ATELE T immature cells ABR[employer]IVE WHEEL MOLDER Not Available [facility] ([facility]) [address] [facility], [place], [address], 07/29/2024 12:38:49 07/21/20 24 07/22/2024 CBC WITH DIFFE RENTI AL/PL ATELE T neutrophils (absolute) 2.3 x10e3 /uL 1.4-7. 0 normal Not Available [facility] ([facility]) [address] [place], [address], 07/29/2024 12:38:49 07/21/20 24 07/22/2024 CBC WITH DIFFE RENTI AL/PL ATELE T lymphs (absolute) 2.7 x10e3 /uL 0.7-3. 1 normal Not Available [facility] ([facility]) [address] [facility], [place], [address], 07/29/2024 12:38:49 07/21/20 24 07/22/2024 CBC WITH DIFFE RENTI AL/PL ATELE T monocytes(ab solute) 0.3 x10e3 /uL 0.1-0. 9 normal Not Available [facility] ([facility]) [address] [facility], [place], [address], 07/29/2024 12:38:49 07/21/20 24 07/22/2024 CBC WITH DIFFE RENTI AL/PL ATELE T eos (absolute) 0.1 x10e3 /uL 0.0-0. 4 normal Not Available [facility] ([facility]) [address] [facility], [place], [address], 07/29/2024 12:38:49 07/21/20 24 07/22/2024 CBC WITH DIFFE RENTI AL/PL ATELE T baso (absolute) 0.1 x10e3 /uL 0.0-0. 2 normal Not Available [facility] ([facility]) [address] [facility], [place], [address], 07/29/2024 12:38:49 07/21/20 24 07/22/2024 CBC WITH DIFFE RENTI AL/PL ATELE T immature granulocytes 0 % not estab. Not Available [facility] ([facility]) [address] [place], [address], 07/29/2024 12:38:49 07/21/20 24 07/22/2024 CBC WITH DIFFE RENTI AL/PL ATELE T immature grans (abs) 0.0 x10e3 /uL 0.0-0. 1 Not Available [facility] ([facility]) [address] [facility], [place], [address], 07/29/2024 12:38:49 07/21/20 24 07/22/2024 CBC WITH DIFFE RENTI AL/PL ATELE T NRBC ABR[employer]IVE WHEEL MOLDER Not Available [facility] ([facility]) [address] [facility], [place], [address], 07/29/2024 12:38:49 07/21/20 24 07/22/2024 CBC WITH DIFFE RENTI AL/PL ATELE T hematology comments: ABRASIVE WHEEL MOLDER Not Available [facility] ([facility]) [address] [facility], [place], [address], 07/29/2024 12:38:49 07/21/20 24 07/22/2024 COMP. METAB OLIC PANEL (14) glucose 80 mg/dL 70-99 normal Not Available [facility] ([facility]) [address] [facility], [place], [address], 07/29/2024 12:38:50 07/21/20 24 07/22/2024 COMP. METAB OLIC PANEL (14) BUN 11 mg/dL 6-20 normal Not Available [facility] ([facility]) [address] [facility], [place], [address], 07/29/2024 12:38:50 07/21/20 24 07/22/2024 COMP. METAB OLIC PANEL (14) creatinine 0.69 mg/dL 0.57-1 .00 normal Not Available [facility] ([facility]) [address] [place], [address], 07/29/2024 12:38:50 07/21/20 24 07/22/2024 COMP. METAB OLIC PANEL (14) eGFR 120 mL/mi n/1.7 3 >59 normal Not Available [facility] ([facility]) [address] [facility] [place], [address], 07/29/2024 12:38:50 07/21/20 24 07/22/2024 COMP. METAB OLIC PANEL (14) BUN/creatini ne ratio 16 9-23 normal Not Available [facility] ([facility]) [address] [facility] [place], [address], 07/29/2024 12:38:50 07/21/20 24 07/22/2024 COMP. METAB OLIC PANEL (14) sodium 140 mmol/ L 134-14 4 normal Not Available [facility] ([facility]) [address] [place], [address], 07/29/2024 12:38:50 07/21/20 24 07/22/2024 COMP. METAB OLIC PANEL (14) potassium 4.4 mmol/ L 3.5-5. 2 normal Not Available [facility] ([facility]) [address] [place], [address], 07/29/2024 12:38:50 07/21/20 24 07/22/2024 COMP. METAB OLIC PANEL (14) chloride 100 mmol/ L 96-106 normal Not Available [facility] ([facility]) [address] [facility] [place], [address], 07/29/2024 12:38:50 07/21/20 24 07/22/2024 COMP. METAB OLIC PANEL (14) carbon dioxide, total 23 mmol/ L 20-29 normal Not Available [facility] ([facility]) [address] [facility] [place], [address], 07/29/2024 12:38:50 07/21/20 24 07/22/2024 COMP. METAB OLIC PANEL (14) calcium 10.2 mg/dL 8.7-10 .2 normal Not Available [facility] ([facility]) [address] [facility] [place], [address], 07/29/2024 12:38:50 07/21/20 24 07/22/2024 COMP. METAB OLIC PANEL (14) protein, total 7.5 g/dL 6.0-8. 5 normal Not Available [facility] ([facility]) [address] [facility] [place], [address], 07/29/2024 12:38:50 07/21/20 24 07/22/2024 COMP. METAB OLIC PANEL (14) albumin 4.7 g/dL 4.0-5. 0 normal Not Available [facility] ([facility]) [address] [facility], [place], [address], 07/29/2024 12:38:50 07/21/20 24 07/22/2024 COMP. METAB OLIC PANEL (14) globulin, total 2.8 g/dL 1.5-4. 5 Not Available [facility] ([facility]) [address] [facility], [place], [address], 07/29/2024 12:38:50 07/21/20 24 07/22/2024 COMP. METAB OLIC PANEL (14) bilirubin, total 0.5 mg/dL 0.0-1. 2 normal Not Available [facility] ([facility]) [address] [facility], [place], [address], 07/29/2024 12:38:50 07/21/20 24 07/22/2024 COMP. METAB OLIC PANEL (14) alkaline phosphatase 66 IU/L 44-121 normal Not Available [facility] ([facility]) [address] [facility], [place], [address], 07/29/2024 12:38:50 07/21/20 24 07/22/2024 COMP. METAB OLIC PANEL (14) AST (SGOT) 18 IU/L 0-40 normal Not Available [facility] ([facility]) [address] [facility], [place], [address], 07/29/2024 12:38:50 07/21/20 24 07/22/2024 COMP. METAB OLIC PANEL (14) ALT (SGPT) 15 IU/L 0-32 normal Not Available [facility] ([facility]) [address] [facility], [place], [address], 07/29/2024 12:38:50 07/21/2007/22/2024 LIPID PANEL cholesterol, total 195 mg/dL 100-19 9 normal Not Available [facility] ([facility]) [address] [facility], [place], [address], 07/29/2024 12:38:51 07/21/2007/22/2024 LIPID PANEL triglyceride s 94 mg/dL 0-149 normal Not Available [facility] ([facility]) [address] [facility], [place], [address], 07/29/2024 12:38:51 07/21/2007/22/2024 LIPID PANEL HDL cholesterol 49 mg/dL >39 normal Not Available [facility] ([facility]) [address] [facility], [place], [address], 07/29/2024 12:38:51 07/21/2007/22/2024 LIPID PANEL VLDL cholesterol girma 17 mg/dL 5-40 Not Available [facility] ([facility]) [address] [facility], [place], [address], 07/29/2024 12:38:51 07/21/2007/22/2024 LIPID PANEL LDL chol calc ([facility]) 129 mg/dL 0-99 above high normal Not Available [facility] ([facility]) [address] [facility], [place], [address], 07/29/2024 12:38:51 07/21/2007/22/2024 LIPID PANEL LDL calc comment: ABRASIVE WHEEL MOLDER Not Available [facility] ([facility]) [address] [facility], [place], [address], 07/29/2024 12:38:51 07/21/2007/28/2024 VITAM IN E vitamin E(alpha tocopherol) 14.7 mg/L 5.9-19 .4 Not Available [facility] ([facility]) [address] [place], [address], 07/29/2024 12:38:52 07/21/2007/28/2024 VITAM IN E vitamin E(gamma tocopherol) 0.4 mg/L 0.7-4. 9 below low normal Refer ence inter vals for alpha and gamma -toco phero l deter mined from [facility] Exami natio n Surve y, 2004- 2005. Indiv idual s with alpha -toco phero l level s less than 5.0 mg/L are consi dered vitam in E defic ient. Not Available [facility] ([facility]) [address] [facility], [place], [address], 07/29/2024 12:38:52 07/21/2007/22/2024 HEMOG LOBIN A1C hemoglobin A1C 5.3 % 4.8-5. 6 normal Predi abete s: 5.7 - 6.4 Diabe ifeanyi: >6.4 Glyce cely contr ol for adult s with diabe ifeanyi: <7.0 Not Available [facility] ([facility]) [address] [facility], [place], [address], 07/29/2024 12:38:53 07/21/2007/22/2024 FOLAT E (FOLI C ACID) , SERUM folate (folic acid), serum >20.0 NG/mL >3.0 A serum folat e anitha ntrat ion of less than 3.1 ng/mL is consi dered to repre sent clini girma defic iency . Not Available [facility] ([facility]) [address] [facility], [place], [address], 07/29/2024 12:38:54 07/21/2007/28/2024 VITAM IN A, SERUM vitamin A 69.2 ug/dL 18.9-5 7.3 above high normal Refer ence inter vals for vitam in A deter mined from [facility] inter nal studi es. Indiv idual s with vitam in A less than 20 ug/dL are consi dered vitam in A defic ient and those with serum anitha ntrat ions less than 10 ug/dL are consi dered sever jessica defic ient. This test was devel betied and its perfo charley e yamile avelarri stics deter mined by [facility]. It has not been clear ed or appro bren by the Food and Drug Admin istra tion. Not Available [facility] ([facility]) [address] [facility], [place], [address], 07/29/2024 12:38:56 07/21/20 24 07/22/2024 VITAM IN D, 25-HY DROXY vitamin D, 25-hydroxy 64.7 NG/mL 30.0-1 00.0 Vitam in D defic iency has been defin ed by the Insti tute of Medic ine and an Endoc rine Socie ty pract ice guide line as a level of serum 25-OH vitam in D less than 20 ng/mL (1,2) . The Endoc rine Socie ty went on to furth er defin e vitam in D insuf ficie ncy as a level betwe en 21 and 29 ng/mL (2). 1. IOM (Inst itute of Medic ine). 2010. Dieta ry refer ence gonzalo es for calci um and D. Luis Eduardo olivera [place]: [facility] Press . 2. Kee ramires MF, Latosha anand [place], Rigo off-F errar i HURD, et al. Evalu ation , treat ment, and preve ntion of vitam in D defic iency : an Endoc rine Socie ty clini girma pract ice guide line. JCEM. 2010; 96(7) :1911 -30. Not Available [facility] ([facility]) [address] [facility], [place], [address], 07/29/2024 12:38:57 07/21/20 24 07/26/2024 VITAM IN B1 (THIA MINE) , BLOOD vit. B1, whole blood 158.0 nmol/ L 66.5-2 00.0 Not Available [facility] ([facility]) [address] [facility], [place], [address], 07/29/2024 12:38:58 07/21/20 24 07/29/2024 METHY LMALO RAHEEM ACID, SERUM methylmaloni c acid, serum 134 nmol/ L 0-378 Not Available [facility] ([facility]) [address] [facility], [place], [address], 07/29/2024 12:38:59 07/21/20 24 07/22/2024 PREAL BUMIN prealbumin 32 mg/dL 14-35 Not Available [facility] ([facility]) [address] [facility], [place], [address], 07/29/2024 12:39:00 Result Notes None recorded. Problems Name Problem SNOMED Code Status Onset Date Resolution Date Notes Provider Name and Address Organization Details Recorded Time Polycystic ovary syndrome 233946604 Active 2024 Darryl Baez DNP, APRN, [employer] [address] , [place], [place], [address] [place] [address] , [facility] & [place] 5 11:47:47 Hypothyroi dism 13527835 Active 2022 Darryl Baez DNP, APRN, [employer]-C [address] , [place] [address] , [facility] & [place] 3 08:17:42 Essential hypertensi on 85824513 Active 2022 Darryl Baez DNP, APRN, [employer]-C [address] , [place], [place], [address] [place] [address] , [facility] & [place] 3 08:17:46 Morbid obesity 377402438 Active 2022 Darryl Baez DNP, APRN, [employer]-C [address], [place] [address] , [facility] & [place] 3 08:17:52 Disorder of function of stomach 260643531 Active 2022 Darryl Baez DNP, APRN, [employer] WHE[employer]-C [address], [place], [place], [address] [place] [address] , [place] - [facility] - [place] & [place] 3 08:17:59 Unintentio nal weight gain [id number] 04 Active 2022 Darryl Baez DNP, DIRECTOR TRUST, [employer] WHE[employer]OLDER-C [address], [place], [address] [place] [address] , [place] - [facility] & [place] 3 08:18:05 Anxiety 42907357 Active 2022 Darryl Baez DNP, DIRECTOR [employer], [employer]-C [address], [place], [address] [place] [address] , [place] - [facility] & [place] 3 12:38:43 Depressive disorder 97081955 Active 2022 Darryl Baez DNP, DIRECTOR [employer], [employer] WHE[employer]-C [address], [place], [address] [place] [address] , [place] - [facility] & [place] 3 12:38:52 Intentiona l weight loss 369888507 Active 2022 Darryl Baez DNP, DIRECTOR [employer]UST, A[employer]IVE WHEEL MOLDER-C [address] [facility], [place], [address] [place] [address] , [place] - [facility] & [place] 3 10:29:39 Urticaria 625504949 Active 2022 Darryl Baez DNP, DIRECTOR [employer]UST, A[employer] WHE[employer] MOL[employer]-C [address] [facility], [place], [address] [place] [address] , [place] - [facility] & [place] 3 10:29:46 Obesity 044452827 Active 2022 Darryl Baez DNP, DIRECTOR [employer]UST, A[employer]IVE WHEEL MOL[employer]-C [address] [facility], [place], [address] [place] [address] , [place] - [facility] [facility] [place] 3 11:20:07 Heartburn 45509800 Active 2023 Darryl Baez DNP, DIRECTOR TRUST, ABR[employer]IVE WHEEL MOLDER-C [address] [facility], [place], [place], [address] [place] [address] , [place] - [facility] [place] 4 12:00:48 Overweight 466347595 Active 2023 Darryl Baez DNP, APRN, ABR[employer]IVE WHEEL MOLDER-C 114[address] Stephanie June, [place], [place], [address] [place] [address] , [facility] - [facility] [place] 4 12:02:02 Constipati on 91040584 Active 2023 Darryl Baez DNP, APRN, ABR[employer]IVE WHEEL MOLDER-C [address] Stephanie June, [place], [place], [address] [place] [address] , [facility] - [facility] [place] 4 12:14:11 Problem Notes None recorded. Procedures Surgical History Date Name Laterality Status Provider Name and Address Organization Details Recorded Time cholecystectomy completed Darryl Hayward DNP, APRN, A[employer]IVE WHEEL MOLDER-C [address] Stephanie , [place], [place], [address] [place] [address], [place] - [facility] [place] 01/30/2023 10:35:04 extraction of wisdom tooth completed Aurora Rodgers [place] - [facility] [place] 01/27/2023 15:58:15 laparoscopy completed Aurora Rodgers [place] - [facility] [place] 01/27/2023 15:58:46 Dilation and curettage completed Aurora Rodgers [place] - [facility] [place] 01/27/2023 15:59:00 Ear Tube completed Darryl Baez DNP, APRN, [employer] WHE[employer] MOL[employer]-C [address] Stephanie , [place], [place], [address] [place] [address], [place] - [facility] [place] 01/30/2023 10:35:31 laparoscopic sleeve gastrectomy completed Florencio Ovalles [place] - [facility] [place] 07/15/2023 08:19:02 Imaging Results None recorded. Procedure Notes None recorded. Medical Equipment None Reported. Allergies Allergen ID Allergen Name Allergen Category Reaction Reaction Severity Criticality Documentation Date Start Date Code Code System Note Provider Name and Address Organization Details Recorded Time 80742 Product containin g penicilli n (product) medicatio n Not available Not available Not available 01/27/2023 45320 8001 SNOMED Aurora beauchamp, [place] EM [facility] [place] 3 15:54:37 06311 Bactrim medicatio n diarrhea Not available Not available 01/27/2023 19311 9 RxNorm Aurora beauchamp, [place] Cabrera [facility] [place] 3 15:54:48 42099 lactose food,medi cation diarrhea Not available Not available 01/27/2023 6211 RxNorm Aurora beauchamp, [place] EM [facility] [place] 3 15:55:05 51455 cultivate d mushroom extract food vomiting Not available Not available 01/27/2023 67169 17 RxNorm Aurora beauchamp, [place] EM [facility] [place] 3 15:55:15 35489 Product containin g angiotens in-conver ting enzyme inhibitor (product) medicatio n Not available Not available Not available 06/25/2023 78230 009 SNOMED Florencio Sharp-Bec goran quynh, [place] Cabrera [facility] [place] 3 07:52:37 89105 levofloxa ina medicatio n Not available Not available Not available 07/15/2023 40119 RxNorm Florencio Sharp-Bec goran quynh, [place] Cabrera [facility] [place] 3 08:16:19 01753 adhesive environme nt,medica tion Not available Not available Not available 07/17/2023 72800 UNK DERMA SANCHES Florencio Sharp-Bec goran quynh, [place] Cabrera [facility] [place] 3 15:19:49 Medications Name Sig Start Date [...] enidate ER 10 mg capsule,ext ended release [id number]- 50 Take 2 capsules every day by [...] enidate ER 15 mg capsule,ext ended release qtdnpayy18- 50 Take 1 capsule every day by [...] and Address Organization Details Last Updated DateTime 4 160.02 cm 97.9 [degF] 74 /min 24.3 kg/m2 84622.5 9 g 135 mm[Hg] 94 mm[Hg] Shy STAFFORD - [place] - [place] & [place] 4 11:22:42 Date Recorded Body height Body temperature Heart rate Body mass index (BMI) Body weight Systolic blood pressure Diastolic blood pressure Provider Name and Address Organization Details Last Updated DateTime 4 160.02 cm 97.1 [degF] 72 /min 23.9 kg/m2 43613.3 3 g 145 mm[Hg] 96 mm[Hg] Shy Garcia [facility] [place] 4 13:30:02 Date Recorded Body height Body mass index (BMI) Body weight Provider Name and Address Organization Details Last Updated DateTime 10/22/2024 160.02 cm 23.4 kg/m2 79802.19 g Sherie Smiley [facility] [place] 10/22/2024 11:17:51 Date Recorded Body height Body temperature Heart rate Body mass index (BMI) Body weight Systolic blood pressure Diastolic blood pressure Provider Name and Address Organization Details Last Updated DateTime 160.02 cm 98.4 [degF] 87 /min 23.6 kg/m2 25756.2 2 g 110 mm[Hg] 78 mm[Hg] Shy Garcia [facility] & [place] 5 13:58:01 Social History Question Answer Notes LastModified by Organizat ion Details LastModified Time Tobacco Smoking Status Never Smoker Aurora Rodgers [facility] & [place] 01/27/2023 15:57:52 What Is Your Level Of Alcohol Consumption? None [email or web address] Information not available 08/11/2023 What Is Your Level Of Caffeine Consumption? 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 No [email or web address] Information not available 01/27/2023 Sex: Unknown Functional Status None recorded. Mental Status None recorded. Family History Relationship Description Onset Age of this Age Resolved Age Notes LastModified by Organization Details LastModified Time Maternal Grandmother Obese [email or web address] Not available 11:13:38 Maternal Grandmother Diabetes mellitus [email or web address] Not available 10/13 11:13:38 Maternal Grandmother Heart disease [email or web address] Not available 16:12:19 Maternal Grandmother Hypercholest erolemia [email or web address] Not available 16:12:52 Maternal Grandmother Asthma [email or web address] Not available 11:13:38 Maternal Grandmother Disorder of endocrine system pt. added direct ly (01/29) [email or web address] Not available 01/29/2023 15:01:55 Maternal Grandmother Myocardial infarction pt. added direct ly (01/29) [email or web address]-13 Not available 01/29/2023 15:02:13 Maternal Grandmother Mental health problem pt. added direct ly (01/29) [email or web address]-13 Not available 01/29/2023 15:02:48 Paternal Grandfather Obese [email or web address] Not available 11:13:38 Paternal Grandfather Hypertensive disorder [email or web address] Not available 16:11:58 Paternal Grandfather Hypercholest erolemia [email or web address] Not available 16:12:52 Father Hypertensive disorder Not available 16:11:58 Father Hypercholest erolemia [email or web address] Not available 16:12:52 Maternal Grandfather Cerebrovascu lar accident [email or web address] Not available 01/27/2023 16:12:28 Maternal Grandfather Hypercholest erolemia [email or web address] Not available 16:12:52 Maternal Grandfather Rheumatoid arthritis [...] Immunizations Vaccine Type Date Status Note Provider Nam e and Address Organization Details Recorded Time influenza, unspecified formulation 01/29/2023 completed Shy Garcia null, [place] - [facility] - [place] [facility] [place] 08/11/2023 11:08:09 influenza, unspecified formulation 01/21/2024 completed Sherie Smiley null, [place] - [facility] - [place] [facility] [place] 10/22/2024 11:20:06 Past Encounters Encounter ID Performer Location Encounter Start Date Encounter Closed Date Diagnosis/Indication Diagnosis SNOMED-CT Code Diagnosis ICD10 Code Diagnosis Note [id number] Darryl Baez DNP, DIRECTOR TRUST, ABRASIVE WHEEL MOLDER-C [facility] [address] [facility] [address] [place] [address] 01/30/2023 07:37:46 01/30/2023 12:22:55 Obesity 872279939 E66.9 The patient will be scheduled for the following. Initial intake lab work, cardiac clearance, and EGD. All risks complicati ons and alternativ es of the upper endoscopy were discussed with the patient and agreed upon. These include but are not limited to, over sedation, bleeding, perforatio n. Patient will be educated by the surgical weight loss team regarding if any medical managed weight loss will be required and they will follow this according to their recommenda tions. 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 K31.89 Essential hypertension 90207697 I10 Hypothyroidism 40432517 E03.9 Morbid obesity 644209072 E66.01 Unintentio nal weight gain 6150784548 26240 R63.5 Anxiety 84009702 F41.9 Depressive disorder 3548 9007 F32.A [id number] Darryl Baez DNP, DIRECTOR TRUST, ABRASIVE WHEEL MOLDER-C [facility] [address] [facility] [address] [place] [address] 06/25/2023 07:30:52 06/25/2023 15:18:09 Morbid obesity 849733190 E66.01 Pre-surger y evaluation 395929553 Z01.818 Postoperative pain 36724 9007 G89.18 Anxiety 91307081 F41.9 Depressive disorder 3548 9007 F32.A Hypothyroidism 45333906 E03.9 Essential hypertension 44407896 I10 [id number] Darryl Baez DNP, DIRECTOR TRUST, ABRASIVE WHEEL MOLDER-C [facility] [address] [facility] [address] [place] [address] 07/15/2023 08:27:20 07/15/2023 09:42:34 History of bariatric surgical procedure 516988858 Z98.84 The patient is doing well. The patient is instructed to continue their vitamins as directed. They are to continue advancing their diet as directed.Mary Anne herrera may start exercising but keep lifting less than 25 pounds for 2 more weeks. I will see them back in 3 weeks or one month from surgery. We will order their first set of labs at that time.I summarized the expectatio ns for the upcoming year. We will check labs at their one month visit from surgery, 3 months from surgery as well as at 6, 9, and 12 months from surgery. These labs will be ordered on the day of their appointmen t. They have the option to come to the appointmen t fasting and labs can be drawn that day at the hospital. If not, I expect these labs to be drawn within the week of ordering them. If they choose to have them drawn at another [facility] they are to make sure that the labs are sent to my office. These labs will be reviewed once received and the patient will be called with any significan t abnormalit ies and how they should be addressed. If they would like a copy of their labs they are welcome to request these and we will send a copy to them. If their labs and vitamin levels are adequate at 12 months then they will need lab checks every 6mth-12mth . They consent to understand this plan and agree to comply. Anxiety 34083298 F41.9 Depressive disorder 3548 9007 F32.A Essential hypertension 41802506 I10 Hypothyroidism 48635733 E03.9 Morbid obesity 104800123 E66.01 Urticaria 107434226 L50. 9 Intentiona l weight loss 463515106 R63.8 [id number] Darryl Baez, ALLYSSA, DIRECTOR TRUST, ABRASIVE WHEEL MOLDER-C [facility] [address] [facility] [address] [place] [address] 07/15/2023 08:00:44 07/30/2023 15:14:36 History of bariatric surgical procedure 043145701 Z98.84 The patient is doing well. The patient is instructed to continue their vitamins as directed. They are to continue advancing their diet as directed.T javier may start exercising but keep lifting less than 25 pounds for 2 more weeks. I will see them back in 3 weeks or one month from surgery. We will order their first set of labs at that time.I summarized the expectatio ns for the upcoming year. We will check labs at their one month visit from surgery, 3 months from surgery as well as at 6, 9, and 12 months from surgery. These labs will be ordered on the day of their appointmen t. They have the option to come to the appointmen t fasting and labs can be drawn that day at the hospital. If not, I expect these labs to be drawn within the week of ordering them. If they choose to have them drawn at another [facility] they are to make sure that the labs are sent to my office. These labs will be reviewed once received and the patient will be called with any significan t abnormalit ies and how they should be addressed. If they would like a copy of their labs they are welcome to request these and we will send a copy to them. If their labs and vitamin levels are adequate at 12 months then they will need lab checks every 6mth-12mth . They consent to understand this plan and agree to comply.. [id number] Darryl Baez, DNP, DIRECTOR TRUST, ABRASIVE WHEEL MOLDER-C [facility] [address] [facility] [address] [place] [address] 08/11/2023 11:00:35 08/11/2023 11:51:04 History of bariatric surgical procedure 018631831 Z98.84 The patient is doing well. The patient is instructed to continue their vitamins as directed. They are to continue advancing their diet as directed.T hecinthia may start exercising but keep lifting less than 25 pounds for 2 more weeks. I will see them back in 3 weeks or one month from surgery. We will order their first set of labs at that time.I summarized the expectatio ns for the upcoming year. We will check labs at their one month visit from surgery, 3 months from surgery as well as at 6, 9, and 12 months from surgery. These labs will be ordered on the day of their appointmen t. They have the option to come to the appointmen t fasting and labs can be drawn that day at the hospital. If not, I expect these labs to be drawn within the week of ordering them. If they choose to have them drawn at another [facility] they are to make sure that the labs are sent to my office. These labs will be reviewed once received and the patient will be called with any significan t abnormalit ies and how they should be addressed. If they would like a copy of their labs they are welcome to request these and we will send a copy to them. If their labs and vitamin levels are adequate at 12 months then they will need lab checks every 6mth-12mth . They consent to understand this plan and agree to comply.. Intentiona l weight loss 868681924 R63.8 History of gastrectomy 798800713 Z90.3 Advised qid intake 50% protein 7756-4963 calories/d y less than 100 carbs/dyLo ng discussion today of InBody results including PBF(percen t body fat) SMM (skeletal muscle mass) Visceral fat level level BMR Segmental Fat Analysis and Segmental Lean Analysis.E ncouraged pt to take minimal calories as per BMR and to anticipate changes in SMM and PBF values not just total weight.Fol low-up with Repeat CHRIS in 3mth suggested Patient is status post bariatric surgery and at increased risk for vitamin deficienci es and malnutriti on. Bariatric vitamin panel ordered today. Patient will be contacted to correct any vitamin deficienci es. Anxiety 02649151 F41.9 Depressive disorder 3548 9007 F32.A Essential hypertension 79201866 I10 Hypothyroidism 43117197 E03.9 Obesity 945103865 E66.9 The patient will be scheduled for the following. Initial intake lab work, cardiac clearance, and EGD. All risks complicati ons and alternativ es of the upper endoscopy were discussed with the patient and agreed upon. These include but are not limited to, over sedation, bleeding, perforatio n.Patient will be educated by the surgical weight loss team regarding if any medical managed weight loss will be required and they will follow this according to their recommenda tions.ben ent will follow-up in office after all testing has been completed [id number] KAVIN MAR BS, RDN, LD [facility] [address] [facility] [address] [place] [address] 08/11/2023 11:53:18 08/11/2023 13:19:59 Morbid obesity 852233642 E66.01 Pt has lost 30 lbs since sx bringing her BMI to 32.1. [id number] Darryl Baez, DNP, DIRECTOR TRUST, ABRASIVE WHEEL MOLDER-C [facility] [address] [facility] [address] [facility] [place] [address] 10/17/2023 11:45:54 10/17/2023 12:37:45 History of bariatric surgical procedure 110375547 Z98.84 The patient is doing well. The patient is instructed to continue their vitamins as directed. They are to continue advancing their diet as directed.T paulay may start exercising but keep lifting less than 25 pounds for 2 more weeks. I will see them back in 3 weeks or one month from surgery. We will order their first set of labs at that time.I summarized the expectatio ns for the upcoming year. We will check labs at their one month visit from surgery, 3 months from surgery as well as at 6, 9, and 12 months from surgery. These labs will be ordered on the day of their appointmen t. They have the option to come to the appointmen t fasting and labs can be drawn that day at the hospital. If not, I expect these labs to be drawn within the week of ordering them. If they choose to have them drawn at another [facility] they are to make sure that the labs are sent to my office. These labs will be reviewed once received and the patient will be called with any significan t abnormalit ies and how they should be addressed. If they would like a copy of their labs they are welcome to request these and we will send a copy to them. If their labs and vitamin levels are adequate at 12 months then they will need lab checks every 6mth-12mth . They consent to understand this plan and agree to comply.. Intentiona l weight loss 641753504 R63.8 History of gastrectomy 663440205 Z90.3 Advised qid intake 50% protein 3841-1156 calories/d y less than 100 carbs/dy Long [...] contacted to correct any vitamin deficienci es. Heartburn 44931071 R12 GERD-patie nt was reassured. We discussed lifestyle modificati ons in patient-di rected therapy which are designed to decrease distal esophageal acid exposure. Plan is to continue current proton pump inhibitor , however we will increase frequency to twice a day dosing. Other lifestyle modificati ons include elevating the head of the bed on 15 cm of blocks or sleep on a wedge-shap ed bolster. Patient was encouraged to consume smaller meals and do not eat for 3 hours prior to lying recumbent. Ultimately patient has been advised to avoid large, high fat meals and avoid foods that may aggravate the problem. Essential hypertension 40884801 I10 Anxiety 18752870 F41.9 Depressive disorder 3548 9007 F32.A Hypothyroidism 75131813 E03.9 Overweight 024323574 E66 .3 Constipation 74826483 K5 9.00 [id number] Darryl Baez, DNP, DIRECTOR TRUST, ABRASIVE WHEEL MOLDER-C [facility] [address] [facility] [address] [place] [address] 01/16/2024 11:43:09 01/16/2024 12:43:11 History of bariatric surgical procedure 932314186 Z98.84 The patient is doing well. The patient is instructed to continue their vitamins as directed. They are to continue advancing their diet as directed.T javier may start exercising but keep lifting less than 25 pounds for 2 more weeks. I will see them back in 3 weeks or one month from surgery. We will order their first set of labs at that time.I summarized the expectatio ns for the upcoming year. We will check labs at their one month visit from surgery, 3 months from surgery as well as at 6, 9, and 12 months from surgery. These labs will be ordered on the day of their appointmen t. They have the option to come to the appointmen t fasting and labs can be drawn that day at the hospital. If not, I expect these labs to be drawn within the week of ordering them. If they choose to have them drawn at another [facility] they are to make sure that the labs are sent to my office. These labs will be reviewed once received and the patient will be called with any significan t abnormalit ies and how they should be addressed. If they would like a copy of their labs they are welcome to request these and we will send a copy to them. If their labs and vitamin levels are adequate at 12 months then they will need lab checks every 6mth-12mth . They consent to understand this plan and agree to comply.. Intentiona l weight loss 298054452 R63.8 History of gastrectomy 384760680 Z90.3 Advised qid intake 50% protein 0577-5378 calories/d y less than 100 carbs/dyLo ng discussion today of InBody results including PBF(percen t body fat) SMM (skeletal muscle mass) Visceral fat level level BMR Segmental Fat Analysis and Segmental Lean Analysis.E ncouraged pt to take minimal calories as per BMR and to anticipate changes in SMM and PBF values not just total weight.Fol low-up with Repeat CHRIS in 3mth suggested. She will see dietitian today. Patient is status post bariatric surgery and at increased risk for vitamin deficienci es and malnutriti on. Bariatric vitamin panel ordered today. Patient will be contacted to correct any vitamin deficienci es. Essential hypertension 73094420 I10 Hypothyroidism 16268427 E03.9 Overweight 620501150 E66 .3 [id number] JESSIKA DENNEY RDN, LD [facility] [address] [facility] [address] 01/19/2024 08:24:38 01/19/2024 09:09:28 Obesity 254215632 E66.9 Portions are appropriat e for this stage post-op. Dietary ma jimy surveillance 575966763 Z71.3 Add vegetables to smoothies. Sent email as requested with snack recommenda tions and referred to [facility] Constipation 95750896 K5 9.00 Add jory seeds, wheat germ, and benefiber to regimen/fo ods [id number] Darryl Baez, DNP, DIRECTOR TRUST, ABRASIVE WHEEL MOLDER-C [facility] [address] [facility] [address] [place] [address] 04/16/2024 11:13:14 04/16/2024 12:42:21 History of bariatric surgical procedure 632085106 Z98.84 Intentiona l weight loss 527315672 R63.8 History of gastrectomy 527446978 Z90.3 Advised qid intake 50% protein 3999-6897 calories/d y less than 100 carbs/dy Long [...] contacted to correct any vitamin deficienci es. Essential hypertension 76953600 I10 Hypothyroidism 68621362 E03.9 Anxiety 60607766 F41.9 Depressive disorder 3548 9007 F32.A Heartburn 41853058 R12 GERD-patie nt was reassured. We discussed lifestyle modificati ons in patient-di rected therapy which are designed to decrease distal esophageal acid exposure. Plan is to continue current proton pump inhibitor twice a day dosing. We will also continue H2 sean. Other lifestyle modificati ons include elevating the head of the bed on 15 cm of blocks or sleep on a wedge-shap ed bolster. Patient was encouraged to consume smaller meals and do not eat for 3 hours prior to lying recumbent. Ultimately patient has been advised to avoid large, high fat meals and avoid foods that may aggravate the problem. Gastroesop hageal reflux disease without esophagitis 835169297 K21.9 [id number] JESSIKA DENNEY RDN, LD [facility] [address] [facility] [address] [place] [address] 04/16/2024 11:48:27 04/16/2024 12:52:01 History of sleeve gastrectomy 4429707705 74353 Z90.3 Dietary ma nagement surveillance 014970218 Z71.3 Add vegetables to smoothies. Sent email as requested with snack recommenda tions and referred to [facility] Deficient knowledge of dietary regime 051938306 Z76.89 Inadequate intake of energy 565176305 E46 [id number] Darryl Baez, DNP, DIRECTOR TRUST, ABRASIVE WHEEL MOLDER-C [facility] [address] [facility] [address] [facility] [address] 07/21/2024 13:16:41 07/21/2024 14:31:58 History of bariatric surgical procedure 972973759 Z98.84 Intentiona l weight loss 337599181 R63.8 History of gastrectomy 254886770 Z90.3 Advised qid intake 50% protein 4077-1047 calories/d y less than 100 carbs/dyLo ng discussion today of InBody results including PBF(percen t body fat) SMM (skeletal muscle mass) Visceral fat level level BMR Segmental Fat Analysis and Segmental Lean Analysis.E ncouraged pt to take minimal calories as per BMR and to anticipate changes in SMM and PBF values not just total weight.Fol low-up with Repeat CHRIS in 3mth suggested. She will see dietitian today. Patient is status post bariatric surgery and at increased risk for vitamin deficienci es and malnutriti on. Bariatric vitamin panel ordered today. Patient will be contacted to correct any vitamin deficienci es. At [facility] risk of nutritional deficit 012753847 Z91.89 Essential hypertension 68559657 I10 Hypothyroidism [id number] E03.[id number], LD [facility] [address] [facility] [place] [address] 07/21/2024 14:25:06 07/21/2024 15:00:13 Morbid obesity 056471387 E66.01 BMI 23.9 wt loss 75.9# [id number] Shy Garcia [facility] [address] [facility] [place] [address] 10/22/2024 11:12:33 10/22/2024 11:59:05 History of bariatric surgical procedure [id number] Z98.84 Intentiona l weight loss 980432148 R63.8 History of gastrectomy 743324275 Z90.3 Advised qid intake 50% protein 1104-2215 calories/d y less than 100 carbs/dy Follow-up with Repeat [facility] in 3mth suggested Patient is status post bariatric surgery and at increased risk for vitamin deficienci es and malnutriti on. Bariatric vitamin panel ordered today. Patient will be contacted to correct any vitamin deficienci es. I spent a total of [ 13 ] minutes during this real-time clinical encounter started at [1130 ] and ended at [ 1143 ]. Consent was obtained to engage in telehealth service. Greater than 50% of the time spent was devoted to counseling and coordinati ng care including review of patient record, patient lab data and studies as well as discussing diagnostic evaluation and workup, planned therapeuti c interventi on and further dispositio n of care. This include any additional research needed to obtain further informatio n in formulatin g the plan of care for this patient. This includes counseling the patient about their disease and diagnosis, specifical ly as above. The patient was also counseled on the precaution for COVID-19 including importance of hand washing and social distancing . At [facility] risk of nutritional deficit [id number] Z91.89 we will e-mail her a order for labs. Essential hypertension 07092075 I10 Hypothyroidism 54475960 E03.9 Advised to keep upcoming appointmen t with endocrinol ogist. Heartburn 88099577 R12 GERD-patie nt was reassured. We discussed lifestyle modificati ons in patient-di rected therapy which are designed to decrease distal esophageal acid exposure. Plan is to continue current proton pump inhibitor twice a day dosing. We will also continue H2 sean. Other lifestyle modificati ons include elevating the head of the bed on 15 cm of blocks or sleep on a wedge-shap ed bolster. Patient was encouraged to consume smaller meals and do not eat for 3 hours prior to lying recumbent. Ultimately patient has been advised to avoid large, high fat meals and avoid foods that may aggravate the problem. Polycystic ovary syndrome [id number] E28.2 [id number] Darryl Baez, DNP, DIRECTOR [employer], [employer]BR[employer]IVE WHEEL MOLDER-[employer] [facility] [address] [facility] [address] [place] [address] 01/28/2025 13:33:52 01/28/2025 14:41:19 History of bariatric surgical procedure [id number] Z98.84 Intentiona l weight loss 384802332 R63.8 History of gastrectomy 687615903 Z90.3 Advised qid intake 50% protein 0628-6625 calories/d y less than 100 carbs/dy Long [...] to correct any vitamin deficienci es. At [facility] risk of nutritional deficit 780168396 Z91.89 Essential hypertension 63609989 I10 Hypothyroidism 58435103 E03.9 Advised to keep upcoming appointmen t with endocrinol ogist. Polycystic ovary syndrome 816029323 E28.2 Heartburn 71351763 R12 Health Concerns Section Related Observation LastModified by Organization Detai ls LastModified Time None Recorded Concern Status LastModified by Organization Details LastModified Time None Recorded Advance Directives Directive None Recorded Payers Encounter Date Sequence Insurance Name Policy Number Policy Voss Covered Member ID Voss Member ID Guarantor Name 04/16/2024 1 [place] [id number] 1 Lynn D Warner [id number] Lynn D Warner 07/21/2024 1 [place] [id number] 1 Lynn D Warner [id number] 22 [id number] Lynn D Warner 07/21/2024 1 [place] [id number] 1 Lynn D Warner [id number] 22 [id number] Lynn D Warner 10/22/2024 1 [place] [id number] 1 Lynn D Warner [id number] Lynn D Warner 01/28/2025 1 [place] [id number] 1 Lynn D Warner [id number] 22 [id number] Lynn D Warner Notes Date Note Type Note Provider Name and Address Organization Details Recorded Time 04/16/2024 text/html A: RDN met w/ pt for f/up s/p gastric sleeve gastrectomy surgery ( 2022 ). Pt weight at MD Consult: 211#Current Weight: 137.4#Total Weight Change: -73.6# Inbody Reveals:BMR = 1261SMM = -1.9#PBF = -3% Notes on weight: desires to gain SMM at this time Signs/SymptomsN/V/C/D : constipation - seems to be resolved; Meds and labs reviewed.Notes - takes food with MVI to prevent illness Physical activity: 30 min/day 4-5d/week mix of cardio + strength training; states she gets SOB during cardio but is not concerned about any symptoms Est. daily kcal intake: 8159-0038 Est. daily protein intake: 100 g Est. daily fluid intake: 48-50 oz Meal Frequency/Pattern:Pt reports eating: eating q2-3h; breakfast at 8, snack at 10:30, lunch at 12:30, snack at 1, dinner at 6, snack at 8:30 PM then sleep around 11 PM Foods frequently consumed:B - hard boiled eggs with 1 slice WG toast, PB and lowfat cheese stickS - protein shake (skim milk + protein powder)L - 1 slice WG bread with 1 oz lean turkey, 1 slice cheese, mustard, and 2 oz baby carrots, 1 tbsp hummus and kamlesh / tunaS - light Korean yogurt and will sometimes add jory seeds and 2 Tbsp granola depending on carb balance for the day / beckford peppers / carrotsD - lean protein (chicken, ground turkey) with vegetable and sometimes will do 1-2 oz sweet potato or 1 oz WG riceS - cottage cheese, reduced fat wheat thins, WG crackers with turkey pepperoni, berries, raw veggies Foods occasionally consumed: green apple with chocolate PB2 powder and vanilla Korean yogurt or cocoa-dusted almonds. Drinks: Water, zero sugar flavor packets, Gatorade/Propel zero Foods Not Tolerated: fish Additional notes/concerns: struggles to get in enough calories occasionally. Honors fullness cues. JESSIKA DENNEY RDN, LD [address], [place], [address], [facility] & [place] 04/16/2024 12:18:40 04/16/2024 text/html Patient presents the office today for routine 9 month follow-up status post bariatric gastric sleeve gastrectomy surgery ( 2022 ). Patient doing well. Reports q.i.d. small meal intake. Reports >70g/dy protein intake and good hydration.Patient is drinking 48-50 ounces of water a day.Daily Calories 1200-1300Taking routine vitamins as advised.Heartburn/gas troesophageal reflux: denies and has improved since adding h2 sean at bedtime.Pt Denies : abdominal pain, prandial issues Nausea, Vomiting, bowel or bladder issuesTotal Weight loss Since last office visit has been 9.5 lbsPt is happy with their quality of life after Weight loss Surgery.She continues to take bariatric biotin for hair loss. This has improved. She is working out 4-5 days a week. She is keeping her carbs less than 120 a day, 35 of fat. 02-20-2024 UGI reveals:FINDINGS: The esophagus is unremarkable . There are no mucosal defectsidentified. Motility is normal . There are postoperative changes of gastricsleeve procedure. There is no leak of contrast. There is no obstruction.Duodenal bulb and sweep are unremarkable. Gastroesophageal reflux isdemonstrated to the distal esophagus. 13 mm barium tablet passes easilythrough the esophagus and into the stomach .Fluoroscopy time: 0.4 minutesTotal images: 23Radiation exposure in Reference air Kerma: 50.44 mGyIMPRESSION: Gastroesophageal reflux.Otherwise, unremarkable upper GI series status post sleeve. Today's InBody reveals a skeletal muscle mass = lb,body fat mass = lb,BMI =Percent body fat =Basal Metabolic Rate = kilo calories Darryl Baez, DNP, DIRECTOR [employer], [employer] WHE[employer] MOLDER-C [address], [place], [address], [facility] 04/16/2024 11:52:20 07/21/2024 text/html Patient presents the office today for routine 12 month follow-up status post bariatric gastric sleeve gastrectomy surgery ( 2022 ) Patient doing well. Reports q.i.d. small meal intake. Reports 10-1100g/dy protein intake and good hydration.Patient is drinking 50 ounces of water a day.Daily Calories 1000-1200Taking routine vitamins as advised.Heartburn/gas troesophageal reflux deniesPt Denies : abdominal pain, prandial issues Nausea, Vomiting, bowel or bladder issuesTotal Weight loss Since last office visit has been 2.3 lbsPt is happy with their quality of life after Weight loss Surgery. Today's InBody reveals a skeletal muscle mass = 47.4lb,body fat mass = 45.6 lb,BMI = 23.9Percent body fat = 33.7Basal Metabolic Rate = 1248 kilo calories Darryl Baez, DNP, DIRECTOR [employer], [employer] WHE[employer] MOLDER-C [address] [facility], [place], [address], [facility] & [place] 07/21/2024 13:48:11 07/21/2024 text/html ADIME TemplateA: SHAYLEEN met w/Lynn Hylton for 12 mo f/up via office visit s/p Sleeve. Pt weight at MD Consult: 211#Current Weight: 135.1#Total Weight Change: -75.9#Notes on weight: Signs/SymptomsN/V/C/D : diarrhea Pertinent Labs/Meds/Vitamin regimen: taking vitamins as recommended Physical activity: works out 3-4 days a week, combination of wt training and cardio Tracking food/beverages consumed: My [employer] Diary Est. daily kcal intake: 3767-3152 Est. daily protein intake: 100-110 gm Est. daily fluid intake: 50-64 oz Meal Pattern: 4-5 times a day Additional notes/concerns: Patient has issues with diarrhea. She eats a lot of the same things and some days she tolerates them well and some days diarrhea. She stated she started having issues about 9 mo when she introduced breads and cereals into her diet. Recommended trying gluten free to see if symptoms improve as well as starting a probiotic. Provided handout of gluten free diet I: RDN Recommendations/Goals :1. Try removing gluten from diet2. Continue tracking intake3. Continue with physical activity4. Add probiotic5. Follow up w/RD at next appt. Pt verbally agreed to recommendations and goals. Denied further questions/concerns. M/E: RDN will monitor weight loss, labs, and lifestyle modifications. Will f/up as scheduled or PRN. . TIA BRADSHAW RD, LD [address] [facility], [place], [address], [facility] & [place] 07/21/2024 15:03:52 10/22/2024 text/html Patient presents the office via telehealth today for routine follow-up status post bariatric gastric sleeve gastrectomy surgery ( 2022 ). Patient doing well. Reports q.i.d. small meal intake. Reports 90-100g/dy protein intake and good hydration. Patient is drinking 50-60 ounces of water a day.Daily Calories 1200-1250Taking routine vitamins as advised.Heartburn/gas troesophageal reflux: deniesPt Denies : abdominal pain, prandial issues Nausea, Vomiting, bowel or bladder issuesTotal Weight loss Since last office visit has been lbsPt is happy with their quality of life after Weight loss Surgery.Patient was recently diagnosed with PCOS. She has been referred to a automatic lathe operator but she does not have an appointment scheduled just yet. In regards to her diet she has to avoid spicy foods and avoid coffee. Patient has lost 3 lb since her last office visit. She is exercising at home with a walking pad. She is requesting refills on both omeprazole as well as famotidine. Darryl Baez, DNP, DIRECTOR [employer], ABR[employer]IVE WHEEL MOLDER-C [address] [facility], [place], [address], [facility] & [place] 10/22/2024 11:50:07 01/28/2025 text/html Patient presents the office today for routine follow-up status post bariatric gastric sleeve gastrectomy surgery ( 2022 ). Patient doing well. Reports q.i.d. small meal intake. Reports 90-110g/dy protein intake and good hydration.Patient is drinking 64 ounces of water a day.Daily Calories 1250Taking routine vitamins as advised.Heartburn/gas troesophageal reflux: has been much better while taking [...] Rate = 1218 kilo calories Darryl Baez, DNP, DIRECTOR [employer], ABRASIVE WHEEL MOLDER-C [address] [facility], [place], [address], [facility] [place] & [place] 01/28/2025 14:52:09 OBGyn Episode No OBEpisode recorded.
[2025-01-31] MEDS: SODIUM CHLORIDE 0.9% 10ML SYR (RAD ONLY) 10 ML IV (08:20)
[2025-01-31] MEDS: GADOTERIDOL INJ 20ML SYRINGE 13 ML IV (08:20)
== END 2025-01-31 23:59 | disposition home or self-care (01) ==
LOC: RAD 07:33
PROVIDERS: Visit Provider Specialist
DX: R43.1 Parosmia (principal); G43.C0 Periodic headache syndromes in child or adult, not intractable
CPT/HCPCS: 70553; A9576

== ENCOUNTER 2025-03-02 12:42 | Outpatient (CLI) | payer BC, SELFPAY ==
[2025-03-02 16:36] LABS: Coronavirus 19, PCR Not Detected (NotDetected); Influenza A, PCR Not Detected (NotDetected); Influenza B, PCR Not Detected (NotDetected)
== END 2025-03-02 23:59 | disposition home or self-care (01) ==
LOC: LAB.DROPOF 23:00
PROVIDERS: PCP Student in an Organized Health Care Education/Training Program; Visit Provider Student in an Organized Health Care Education/Training Program
DX: J32.9 Chronic sinusitis, unspecified (principal); J02.9 Acute pharyngitis, unspecified
CPT/HCPCS: 87636